=== PATIENT | female | born 1990 | race American Indian/Alaskan Native ===

== ENCOUNTER 2021-06-18 15:34 | Observation (INO) | payer MEDICARE ==
[2021-06-18] MEDS ORDERED: METOCLOPRAMIDE 10 MG/2 ML INJ IV ONE ×2 (16:54→19:29)
[2021-06-18] MEDS ORDERED: SODIUM CHLORIDE 0.9% 1000 ML 1,000 ML IV ONE (16:54)
--- NOTE | 2021-06-18 17:01 | Event Note ---
ED Screening Note ED Screening Note: Patient is a 30-year-old female presents emergency room complaints of nausea and vomiting for 2 days She is not able to keep anything down She states her sugar has been running 499 She states that she is unable to keep her blood pressure medication down States that she was also having some diarrhea Has a history of gastroparesis States that she was last in DKA 1 year ago Patient is tachycardic and diaphoretic on exam This initial assessment/diagnostic orders/clinical plan/treatment(s) is/are subject to change based on patients health status, clinical progression and re- assessment by fellow clinical providers in the ED. Further treatment and workup at subsequent clinical providers discretion. Patient/guardian urged not to elope from the ED as their condition may be serious if not clinically assessed and managed. Initial orders include: Labs MAIN ED MD evaluation
[2021-06-18] MEDS ORDERED: diphenhydrAMINE 50 MG/ML VIAL IV ONE (17:10)
[2021-06-18 17:19] LABS: Basophils # (Auto) 0.1 K/mm3 (0.0-0.1); Basophils % (Auto) 0.8 % (0.0-1.8); Eosinophils % (Auto) 0.1 % (0.0-4.3); Hematocrit 43.6 % (30.3-42.9); Lymphocytes % (Auto) 9.8 % (13.4-35.0); Mean Corpuscular HGB Conc 34 % (30-34); Mean Corpuscular Volume 89 fl (79-97); Monocytes # (Auto) 0.3 K/mm3 (0.0-0.8); Monocytes % (Auto) 3.4 % (0.0-7.3); Red Blood Count 4.93 M/mm3 (3.65-5.03); Red Cell Distribution Width 13.9 % (13.2-15.2)
[2021-06-18 17:42] LABS: Albumin 4.4 g/dL (3.9-5); Calcium 9.6 mg/dL (8.4-10.2)
[2021-06-18] MEDS ORDERED: HALOPERIDOL LACTATE 5 MG/1 ML INJ IM ONE (17:53)
[2021-06-18] MEDS ORDERED: LACTATED RINGERS 1,000 ML IV ONE ×2 (17:53→17:54)
[2021-06-18] MEDS ORDERED: INSULIN REGULAR, HUMAN 100 UNITS/1 ML IV ONE (17:54)
--- NOTE | 2021-06-18 17:55 | Emergency Department Report ---
ED General Adult HPI - General Chief complaint: Nausea/Vomiting/Diarrhea Stated complaint: Abdominal pain, nausea, vomiting and chest PUI?: No Time Seen by Provider: 06/18/21 16:47 Source: patient, EMS ( EMS documentation not available at time of chart dictation ), RN notes reviewed Mode of arrival: Stretcher Limitations: Physical Limitation - History of Present Illness Initial comments: The patient was evaluated in the emergency department for symptoms described in the history of present illness. He/she was evaluated in the context of the global COVID-19 pandemic, which necessitated consideration that the patient might be at risk for infection with the virus that causes COVID-19. Institutional protocols and algorithms that pertain to the evaluation of patients at risk for COVID-19 are in a state of rapid change based on information released by regulatory bodies including the CDC and federal and state organizations. These policies and algorithms were followed during the patient's care in the emergency department. Please note that these policies, procedures and recommendations changed on a rapid basis. During the history and physical examination, I am chaperoned by nurse Shelly Harvey Patient is a 30-year-old female. She has a history of type 1 diabetes that is poorly controlled. She describes a possible history of gastroparesis. She recently ran out of her insulin. She presents to the ER today with abdominal cramping, nausea, vomiting and chest pressure. The patient denies headache and neck pain. Abdominal cramping diffuse, present for a few days. Emesis clear, yellow and green. It is not bloody. She is defecating normally. She denies urinary symptoms. She is having central chest pressure with vomiting. Denies travel, surgery, immobilization, leg pain, leg swelling, DVT and pulmonary embo lism risk factors. No improvement with taking a hot bath or hot shower. Has not been to this hospital before. She has been hospitalized at [facility] in the past for similar symptoms. -: Gradual Location: chest, abdomen Severity scale (0 -10): 0 Quality: aching Consistency: constant Improves with: none Worsens with: eating, movement - Related Data Allergies Allergy/AdvReac Type Severity Reaction Status Date / Time latex Allergy Swelling Verified 06/18/21 16:28 ED Review of Systems ROS: Stated complaint: HYPERTENSION Other details as noted in HPI Constitutional: malaise, weakness. denies: fever Eyes: denies: eye discharge ENT: denies: epistaxis Respiratory: denies: cough Cardiovascular: chest pain Gastrointestinal: abdominal pain, nausea, vomiting. denies: hematemesis, melena, hematochezia Genitourinary: denies: dysuria Musculoskeletal: myalgia Neurological: weakness Psychiatric: anxiety Hematological/Lymphatic: denies: easy bleeding ED Past Medical Hx - Past Medical History Hx Hypertension: Yes Hx Diabetes: Yes - Surgical History Additional Surgical History: right bka 2017 - Social History Smoking Status: Current Every Day Smoker ED Physical Exam - General Limitations: No Limitations, Physical Limitation General appearance: alert, anxious, in distress - Head Head exam: Present: atraumatic, normocephalic - Eye Eye exam: Present: normal appearance, EOMI. Absent: nystagmus - ENT ENT exam: Present: normal exam, normal orophraynx, mucous membranes moist, normal external ear exam - Neck Neck exam: Present: normal inspection, full ROM. Absent: tenderness, meningismus - Respiratory Respiratory exam: Present: normal lung sounds bilaterally. Absent: respiratory distress, wheezes, rales, rhonchi, stridor, decreased breath sounds - Cardiovascular Cardiovascular Exam: Present: normal rhythm, tachycardia, normal heart sounds. Absent: systolic murmur, diastolic murmur, rubs, gallop - GI/Abdominal GI/Abdominal exam: Present: soft, tenderness (Minimal tenderness with deep palpation). Absent: distended, rebound, rigid, pulsatile mass - Extremities Exam Extremities exam: Present: normal inspection, full ROM, other (2+ pulses noted in the bilateral upper extremities and left lower extremity. Right lower extremity status post below-knee amputation). Absent: pedal edema, calf tenderness - Back Exam Back exam: Present: normal inspection, full ROM. Absent: tenderness, CVA tenderness (R), CVA tenderness (L), muscle spasm, paraspinal tenderness, vertebral tenderness - Neurological Exam Neurological exam: Present: alert, other (No facial droop. Tongue midline. Extraocular movements intact bilaterally. Facial sensation intact to light touch in V1, V2, V3 distribution bilaterally. 5 and a 5 strength in 4 extremities. Sensation intact to light touch in 4 extremities.) - Psychiatric Psychiatric exam: Present: anxious - Skin Skin exam: Present: warm, dry, intact, normal color. Absent: rash ED Course Vital Signs 06/18/21 06/18/21 15:47 16:27 Temperature 98.6 F Pulse Rate 106 H Respiratory 16 Rate Blood Pressure 169/99 209/111 [Left] O2 Sat by Pulse 100 Oximetry - Reevaluation(s) Reevaluation #1: 06/18/21 19:28 Differential diagnosis, including but not limited to: GERD, gastritis, hiatal hernia, gastroparesis, cyclic vomiting syndrome, narcotic bowel syndrome, dehydration, metabolic acidosis Assessment and plan: 30-year-old female, who was afebrile, tachycardic and hypertensive, with active nausea and vomiting, likely cyclic vomiting syndrome versus gastroparesis. Laboratory studies demonstrate renal insufficiency, and metabolic acidosis. The patient denies DVT, PE risk factors. Patient meets criteria for admission hospitalization secondary to renal insufficiency, and metabolic acidosis. She was given haloperidol, for presumed gastroparesis, which so far has not really improved her symptoms. She will be medicated with Reglan, and hydromorphone for pain. EKG pending. Chest x-ray abdominal x-ray unremarkable. Hospital physician paged to arrange admission. Based off of the history and physical, do not suspect acute coronary syndrome at this time. 06/18/21 19:29 In terms of the patient's hypertension, administer intravenous hydralazine. Administer insulin for hyperglycemia. 06/18/21 19:50 Dr Gordon to admit to [facility] MDM: 30-year-old female, with intractable nausea vomiting, hypertensive urgency, metabolic acidosis, renal insufficiency, requires admission for IV fluids, antiemetics, blood pressure control, glycemic control, and supportive care ED Medical Decision Making - Lab Data Result diagrams: 06/18/21 17:00 06/18/21 17:00 Vital Signs 06/18/21 06/18/21 15:47 16:27 Temperature 98.6 F Pulse Rate 106 H Respiratory 16 Rate Blood Pressure 169/99 209/111 [Left] O2 Sat by Pulse 100 Oximetry Lab Results 06/18/21 06/18/21 06/18/21 Range/Units 17:00 17:00 17:00 WBC 10.2 (4.5-11.0) K/mm3 RBC 4.93 (3.65-5.03) M/mm3 Hgb 15.0 H (10.1-14.3) gm/dl Hct 43.6 H (30.3-42.9) % MCV 89 (79-97) fl MCH 31 (28-32) pg MCHC 34 (30-34) % RDW 13.9 (13.2-15.2) % Plt Count 240 (140-440) K/mm3 Lymph % (Auto) 9.8 L (13.4-35.0) % Sunflower % (Auto) 3.4 (0.0-7.3) % Eos % (Auto) 0.1 (0.0-4.3) % Baso % (Auto) 0.8 (0.0-1.8) % Lymph # (Auto) 1.0 L (1.2-5.4) K/mm3 Sunflower # (Auto) 0.3 (0.0-0.8) K/mm3 Eos # (Auto) 0.0 (0.0-0.4) K/mm3 Baso # (Auto) 0.1 (0.0-0.1) K/mm3 Seg Neutrophils % 85.9 H (40.0-70.0) % Seg Neutrophils # 8.8 H (1.8-7.7) K/mm3 VBG pH (7.320-7.420) Sodium 135 L (137-145) mmol/L Potassium 4.1 (3.6-5.0) mmol/L Chloride 91.4 L (98-107) mmol/L Carbon Dioxide 21 L (22-30) mmol/L Anion Gap 27 mmol/L BUN 22 H (7-17) mg/dL Creatinine 1.6 H (0.6-1.2) mg/dL Estimated GFR 38 ml/min BUN/Creatinine Ratio 14 % Glucose 328 H (65-100) mg/dL POC Glucose (70-105) mg/dL Calcium 9.6 (8.4-10.2) mg/dL Magnesium (1.7-2.3) mg/dL Total Bilirubin 0.50 (0.1-1.2) mg/dL AST 25 (5-40) units/L ALT 12 (7-56) units/L Alkaline Phosphatase 153 H (35-129) units/L Total Creatine Kinase (30-135) units/L Troponin T (0.00-0.029) ng/mL Total Protein 7.5 (6.3-8.2) g/dL Albumin 4.4 (3.9-5) g/dL Albumin/Globulin Ratio 1.4 % Lipase 26 (13-60) units/L HCG, Qual Negative (Negative) 06/18/21 06/18/21 06/18/21 Range/Units 17:00 17:08 Unknown WBC (4.5-11.0) K/mm3 RBC (3.65-5.03) M/mm3 Hgb (10.1-14.3) gm/dl Hct (30.3-42.9) % MCV (79-97) fl MCH (28-32) pg MCHC (30-34) % RDW (13.2-15.2) % Plt Count (140-440) K/mm3 Lymph % (Auto) (13.4-35.0) % Sunflower % (Auto) (0.0-7.3) % Eos % (Auto) (0.0-4.3) % Baso % (Auto) (0.0-1.8) % Lymph # (Auto) (1.2-5.4) K/mm3 Sunflower # (Auto) (0.0-0.8) K/mm3 Eos # (Auto) (0.0-0.4) K/mm3 Baso # (Auto) (0.0-0.1) K/mm3 Seg Neutrophils % (40.0-70.0) % Seg Neutrophils # (1.8-7.7) K/mm3 VBG pH 7.428 H (7.320-7.420) Sodium (137-145) mmol/L Potassium (3.6-5.0) mmol/L Chloride (98-107) mmol/L Carbon Dioxide (22-30) mmol/L Anion Gap mmol/L BUN (7-17) mg/dL Creatinine (0.6-1.2) mg/dL Estimated GFR ml/min BUN/Creatinine Ratio % Glucose (65-100) mg/dL POC Glucose 293 H (70-105) mg/dL Calcium (8.4-10.2) mg/dL Magnesium 1.80 (1.7-2.3) mg/dL Total Bilirubin (0.1-1.2) mg/dL AST (5-40) units/L ALT (7-56) units/L Alkaline Phosphatase (35-129) units/L Total Creatine Kinase 111 (30-135) units/L Troponin T < 0.010 (0.00-0.029) ng/mL Total Protein (6.3-8.2) g/dL Albumin (3.9-5) g/dL Albumin/Globulin Ratio % Lipase (13-60) units/L HCG, Qual (Negative) - EKG Data -: EKG Interpreted by Md EKG shows normal: sinus rhythm Rate: tachycardia - EKG Data When compared to previous EKG there are: previous EKG unavailable 06/18/21 19:31 EKG interpreted at 19: 26 Sinus rhythm, rate 122 bpm. Normal axis, normal P wave axis, QTC 488 ms. Poor R wave progression. Abnormal EKG. Not a STEMI. - Radiology Data Radiology results: pending, report reviewed, image reviewed ABDOMEN 3 VIEW(S) INDICATION / CLINICAL INFORMATION: Chest and abdominal pain. Nausea, vomiting and diarrhea. COMPARISON: None available. FINDINGS: TUBES / LINES: None. BOWEL GAS PATTERN: There is no evidence of bowel obstruction or mass effect. FREE AIR / EXTRALUMINAL GAS: None seen. ADDITIONAL FINDINGS: No significant additional findings. CHEST: The heart size and pulmonary vasculature are normal. The lungs are clear. IMPRESSION: No acute abnormality. Signer Name: Darren Cuadra MD Signed: 06/18/2021 5:22 PM Workstation Name: [id number] Critical care attestation.: If time is entered above; I have spent that time in minutes in the direct care of this critically ill patient, excluding procedure time. ED Disposition Clinical Impression: Metabolic acidosis, Renal insufficiency, Hyperglycemia, Hypertensive urgency, Nausea and vomiting Disposition: 09 ADMITTED INPATIENT Is pt being admited?: Yes Does the pt Need Aspirin: No Condition: Good
[2021-06-18 18:24] LABS: Platelet Count 240 K/mm3 (140-440)
--- NOTE | 2021-06-18 18:26 | XRay Report ---
ABDOMEN 3 VIEW(S) INDICATION / CLINICAL INFORMATION: Chest and abdominal pain. Nausea, vomiting and diarrhea. COMPARISON: None available. FINDINGS: TUBES / LINES: None. BOWEL GAS PATTERN: There is no evidence of bowel obstruction or mass effect. FREE AIR / EXTRALUMINAL GAS: None seen. ADDITIONAL FINDINGS: No significant additional findings. CHEST: The heart size and pulmonary vasculature are normal. The lungs are clear. IMPRESSION: No acute abnormality. Signer Name: Darren Cuadra MD Signed: 06/18/2021 6:22 PM Workstation Name: [id number]
[2021-06-18] MEDS ORDERED: HYDROmorphone 1 MG/1 ML INJ IV ONE (19:19)
[2021-06-18] MEDS ORDERED: hydrALAZINE 20 MG/1 ML INJ IV ONE (19:23)
[2021-06-18] MEDS ORDERED: PANTOPRAZOLE 40 MG INJ IV ONE (19:24)
[2021-06-18] MEDS: HYDROmorphone 1 MG/1 ML INJ IV PRN (20:20)
--- NOTE | 2021-06-18 21:43 | History and Physical Report ---
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 Patient states that she is compliant with her insulin. But patient may be taking double dose of insulin she is on 8 units of Lantus at nighttime and sliding scale coverage. Also high blood glucose levels on a consistent basis. Patient has a history of of gastroparesis and multiple episodes of vomiting in the past and admissions in the past. Patient has been vomiting for the last for 48 hours. About 7-8 times a day during the day. Vomiting subsided in the emergency room after she was given IV Zofran. No fever or chills. No shortness of breath. No altered sensorium. Patient is vaccinated. - Past Medical History --Hypertension: Yes --Diabetes: Yes - Surgical History --Additional Surgical History: right bka 2017 - Social History r --Smoking Status: Current Every day smoker -- family history Htn Review of Systems ROS: Stated complaint: HYPERTENSION Other details as noted in HPI Constitutional: malaise, weakness. denies: fever Eyes: denies: eye discharge ENT: denies: epistaxis Respiratory: denies: cough Cardiovascular: chest pain Gastrointestinal: abdominal pain, nausea, vomiting. denies: hematemesis, melena, hematochezia Genitourinary: denies: dysuria Musculoskeletal: myalgia Neurological: weakness Psychiatric: anxiety Hematological/Lymphatic: denies: easy bleeding Medications and Allergies Allergies Allergy/AdvReac Type Severity Reaction Status Date / Time latex Allergy Swelling Verified 06/18/21 21:51 Exam - Constitutional Vitals: Temp Pulse Resp BP Pulse Ox 98.6 F 120 H 20 163/103 100 06/18/21 15:47 06/18/21 20:10 06/18/21 20:10 06/18/21 20:10 06/18/21 15:47 General appearance: Present: mild distress, well-nourished - EENT Eyes: Present: PERRL ENT: hearing intact, clear oral mucosa - Neck Neck: Present: supple, normal ROM - Respiratory Respiratory effort: normal Respiratory: bilateral: CTA - Cardiovascular Heart rate: 78 Rhythm: regular Heart Sounds: Present: S1 & S2. Absent: rub, click - Extremities Extremities: no ischemia, pulses intact, pulses symmetrical, No edema Peripheral Pulses: within normal limits - Abdominal General gastrointestinal: Present: soft, non-tender, non-distended, normal bowel sounds Female genitourinary: Present: normal - Integumentary Integumentary: Present: clear, warm, dry - Musculoskeletal Musculoskeletal: gait normal, strength equal bilaterally - Psychiatric Psychiatric: appropriate mood/affect, intact judgment & insight - Neurologic Neurologic: CNII-XII intact, moves all extremities HEART Score - HEART Score Troponin: Troponin T < 0.010 ng/mL (0.00-0.029) 06/18/21 Unknown Results - Labs CBC & Chem 7: 06/19/21 04:30 06/19/21 04:30 Labs: Laboratory Last Values WBC 10.2 K/mm3 (4.5-11.0) 06/18/21 17:00 RBC 4.93 M/mm3 (3.65-5.03) 06/18/21 17:00 Hgb 15.0 gm/dl (10.1-14.3) H 06/18/21 17:00 Hct 43.6 % (30.3-42.9) H 06/18/21 17:00 MCV 89 fl (79-97) 06/18/21 17:00 MCH 31 pg (28-32) 06/18/21 17:00 MCHC 34 % (30-34) 06/18/21 17:00 RDW 13.9 % (13.2-15.2) 06/18/21 17:00 Plt Count 240 K/mm3 (140-440) 06/18/21 17:00 Lymph % (Auto) 9.8 % (13.4-35.0) L 06/18/21 17:00 [place] % (Auto) 3.4 % (0.0-7.3) 06/18/21 17:00 Eos % (Auto) 0.1 % (0.0-4.3) 06/18/21 17:00 Baso % (Auto) 0.8 % (0.0-1.8) 06/18/21 17:00 Lymph # (Auto) 1.0 K/mm3 (1.2-5.4) L 06/18/21 17:00 [place] # (Auto) 0.3 K/mm3 (0.0-0.8) 06/18/21 17:00 Eos # (Auto) 0.0 K/mm3 (0.0-0.4) 06/18/21 17:00 Baso # (Auto) 0.1 K/mm3 (0.0-0.1) 06/18/21 17:00 Seg Neutrophils % 85.9 % (40.0-70.0) H 06/18/21 17:00 Seg Neutrophils # 8.8 K/mm3 (1.8-7.7) H 06/18/21 17:00 VBG pH 7.428 (7.320-7.420) H 06/18/21 17:00 Sodium 135 mmol/L (137-145) L 06/18/21 17:00 Potassium 4.1 mmol/L (3.6-5.0) 06/18/21 17:00 Chloride 91.4 mmol/L (98-107) L 06/18/21 17:00 Carbon Dioxide 21 mmol/L (22-30) L 06/18/21 17:00 Anion Gap 27 mmol/L 06/18/21 17:00 BUN 22 mg/dL (7-17) H 06/18/21 17:00 Creatinine 1.6 mg/dL (0.6-1.2) H 06/18/21 17:00 Estimated GFR 38 ml/min 06/18/21 17:00 BUN/Creatinine Ratio 14 % 06/18/21 17:00 Glucose 328 mg/dL (65-100) H 06/18/21 17:00 POC Glucose 293 mg/dL (70-105) H 06/18/21 17:08 Calcium 9.6 mg/dL (8.4-10.2) 06/18/21 17:00 Magnesium 1.80 mg/dL (1.7-2.3) 06/18/21 Unknown Total Bilirubin 0.50 mg/dL (0.1-1.2) 06/18/21 17:00 AST 25 units/L (5-40) 06/18/21 17:00 ALT 12 units/L (7-56) 06/18/21 17:00 Alkaline Phosphatase 153 units/L (35-129) H 06/18/21 17:00 Total Creatine Kinase 111 units/L (30-135) 06/18/21 Unknown Troponin T < 0.010 ng/mL (0.00-0.029) 06/18/21 Unknown Total Protein 7.5 g/dL (6.3-8.2) 06/18/21 17:00 Albumin 4.4 g/dL (3.9-5) 06/18/21 17:00 Albumin/Globulin Ratio 1.4 % 06/18/21 17:00 Lipase 26 units/L (13-60) 06/18/21 17:00 HCG, Qual Negative (Negative) 06/18/21 17:00 Short CBC 06/18/21 06/19/21 Range/Units 17:00 04:30 WBC 10.2 12.3 H (4.5-11.0) K/mm3 Hgb 15.0 H 11.7 D (10.1-14.3) gm/dl Hct 43.6 H 34.9 D (30.3-42.9) % Plt Count 240 246 (140-440) K/mm3 BMP 06/18/21 06/19/21 17:00 04:30 Sodium 135 L 137 Potassium 4.1 2.9 L* D Chloride 91.4 L 95.5 L Carbon Dioxide 21 L 25 BUN 22 H 21 H Creatinine 1.6 H 1.5 H Glucose 328 H 87 Calcium 9.6 9.0 Cardiac Enzymes 06/18/21 Range/Units Unknown Total Creatine Kinase 111 (30-135) units/L Troponin T < 0.010 (0.00-0.029) ng/mL Liver Function 06/18/21 06/19/21 Range/Units 17:00 04:30 Total Bilirubin 0.50 0.40 (0.1-1.2) mg/dL AST 25 11 (5-40) units/L ALT 12 9 (7-56) units/L Alkaline Phosphatase 153 H 132 H (35-129) units/L Albumin 4.4 3.6 L (3.9-5) g/dL Assessment and Plan Advance Directives: Yes (Full code) VTE prophylaxis?: Chemical Plan of care discussed with patient/family: Yes - Patient Problems (1) Gastroparesis Current Visit: Yes Status: Acute Plan to address problem: Patient is put on clear liquid diet IV Zofran IV Reglan on regular intervals. Gastric emptying scan was not ordered. IV fluids. (2) BREANNE (acute kidney injury) Current Visit: Yes Status: Acute Plan to address problem: Creatinine of 1.6 Vasomotor nephropathy IV fluids for now (3) IDDM (insulin dependent diabetes mellitus) Current Visit: Yes Status: Chronic Plan to address problem: Lantus insulin increased to 15 units. I will also 5 units of Humalog AC before each meal. Insulin coverage with high-dose sliding scale. Accu-Cheks every 4 hours. Check hemoglobin A1c. (4) Hypertension Current Visit: Yes Status: Chronic Qualifiers: Hypertension type: primary hypertension Qualified Code(s): I10 - Essential (primary) hypertension Plan to address problem: Continue antihypertensives. Adjust medications as necessary. (5) Hx of right BKA Current Visit: Yes Status: Chronic Plan to address problem: Supportive care (6) DVT prophylaxis Current Visit: Yes Status: Acute Plan to address problem: On anticoagulation GI prophylaxis
[2021-06-18] MEDS ORDERED: MORPHINE 2 MG/1 ML INJ IV PRN (21:44)
[2021-06-18] MEDS ORDERED: ONDANSETRON 4 MG/2 ML INJ IV PRN (21:44)
[2021-06-18] MEDS ORDERED: ACETAMINOPHEN 325 MG TAB PO PRN (21:44)
[2021-06-18] MEDS ORDERED: SODIUM CHLORIDE 0.9% 1000 ML 1,000 ML IV SCH (21:45)
[2021-06-18] MEDS: FAMOTIDINE 20 MG/2 ML INJ IV SCH (23:04)
[2021-06-18] MEDS: INSULIN LISPRO 100 UNIT/ML SUB-Q SCH (23:05)
[2021-06-18] MEDS: HEPARIN 5,000 UNIT/1 ML VIAL SUB-Q SCH (23:06)
[2021-06-19] MEDS: INSULIN LISPRO 100 UNIT/ML SUB-Q SCH ×4 (02:21→13:05)
[2021-06-19 06:38] LABS: Basophils # (Auto) 0.1 K/mm3 (0.0-0.1); Basophils % (Auto) 0.9 % (0.0-1.8); Eosinophils % (Auto) 0.3 % (0.0-4.3); Hematocrit 34.9 % (30.3-42.9); Hemoglobin 11.7 gm/dl (10.1-14.3); Lymphocytes # (Auto) 2.9 K/mm3 (1.2-5.4); Mean Corpuscular HGB Conc 34 % (30-34); Mean Corpuscular Volume 91 fl (79-97); Monocytes % (Auto) 7.8 % (0.0-7.3); Platelet Count 246 K/mm3 (140-440); Red Blood Count 3.84 M/mm3 (3.65-5.03); Red Cell Distribution Width 13.7 % (13.2-15.2)
[2021-06-19 07:02] LABS: Albumin 3.6 g/dL (3.9-5)
[2021-06-19] MEDS: POTASSIUM CHLORIDE ER 20 MEQ TAB PO SCH ×2 (09:38→13:15)
[2021-06-19] MEDS: HEPARIN 5,000 UNIT/1 ML VIAL SUB-Q SCH (09:38)
[2021-06-19] MEDS: FAMOTIDINE 20 MG/2 ML INJ IV SCH (09:38)
[2021-06-19] MEDS: HYDROmorphone 1 MG/1 ML INJ IV PRN (10:08)
--- NOTE | 2021-06-19 13:04 | Discharge Summary ---
Providers - Providers Date of Admission: 06/18/21 19:51 Date of discharge: 06/19/21 Attending physician: ISABELLA LINDQUIST MD Primary care physician: DERICK ORLANDO MD Hospitalization Reason for admission: vomiting Condition: Good Hospital course: 30-year-old female with history of hypertension, diabetes and right below the knee amputation who presented on 06/18 with persistent vomiting x48 hours. She was admitted for further care. Was started on IV Zofran and Reglan and IV fluids. Patient was able to tolerate clear liquid diet. Glucose improved. Found to have potassium of 2.9. Potassium repleted and improved to 4. Patient no longer had nausea and vomiting and was discharged home with insulin refills. Disposition: 01 HOME / SELF CARE / HOMELESS Final Discharge Diagnosis (Prints w/discharge instructions): Gastroparesis. Acute kidney injury. Insulin-dependent diabetes mellitus, uncontrolled Time spent for discharge: 10 minutes Core Measure Documentation - Palliative Care Palliative Care/ Comfort Measures: Not Applicable - Core Measures Any of the following diagnoses?: none Exam - Physical Exam Narrative exam: GENERAL: Well-developed well-nourished. Sitting on the side of the bed in no acute distress. CHEST/LUNGS: CTAB on room air HEART/CARDIOVASCULAR: RRR. No murmur, rubs or gallops appreciated. ABDOMEN: +BS. NT/ND. NEURO: No focal motor deficit. Follows all commands. EXTREMITIES: R. BKA stump PSYCH: Cooperative. - Constitutional Vitals: Temp Pulse Resp BP Pulse Ox 98.1 F 123 H 20 134/71 97 06/19/21 07:34 06/19/21 07:34 06/19/21 10:08 06/19/21 07:34 06/19/21 09:18 Plan Care Plan Goals: Please start taking insulin as prescribed. Make sure to follow-up with primary care so that you will have constant supply refills. Assessment: Patient admitted with persistent nausea and vomiting. Received IV fluids and Zofran. Vomiting resolved. Found to have hypokalemia to 2.9. Patient received potassium supplementation. Repeat potassium ordered prior to discharge. Patient discharged with medication refills for 1 month. Follow up with: PRIMARY CARE, [Primary Care Provider] - 3-5 Days Prescriptions: Insulin Glargine [Lantus VIAL] 8 units SUB-Q QHS 30 Days #3 ml carvediloL [Coreg] 12.5 mg PO BID 30 Days #60 tablet
[2021-06-19 17:27] VITALS: BP 121/80
[2021-06-19] MEDS ORDERED: INSULIN GLARGINE 100 UNITS/ML SUB-Q SCH (22:00)
--- NOTE | 2021-06-22 18:40 | Electrocardiograph Report ---
[facility] Test Date: 2021-06-18 Test Time: 19:26:36 Pat Name: JUDY SMITH Department: Room: A475 1 Gender: F Community [employer] Officer: MARITZA : 1990 Requested By: GUANACO NOLEN Order Number: [id number] Reading MD: Fredrick Llanos Measurements Intervals [place] Rate: 122 P: 62 [place]: 144 QRS: 75 QRSD: 85 T: 47 QT: 342 QTc: 488 Interpretive Statements Sinus tachycardia Probable left atrial enlargement No previous ECG available for comparison Electronically Signed On 06-22-2021 18:40:11 EDT by Fredrick Llanos
== END 2021-06-19 17:00 | disposition home or self-care (01) ==
LOC: ED 15:34 → 4A 19:51
PROVIDERS: ADMIT Internal Medicine; ATTEND Student in an Organized Health Care Education/Training Program
DX: K31.84 Gastroparesis (principal); I16.0 Hypertensive urgency; N17.9 Acute kidney failure, unspecified; I10 Essential (primary) hypertension; E11.65 Type 2 diabetes mellitus with hyperglycemia; N28.9 Disorder of kidney and ureter, unspecified; R11.2 Nausea with vomiting, unspecified; F17.210 Nicotine dependence, cigarettes, uncomplicated; Z89.511 Acquired absence of right leg below knee; Z79.4 Long term (current) use of insulin
CPT/HCPCS: 36415; 74022; 80053; 82550; 82805; 82962; 83036; 83690; 83735; 84132; 84484; 84703; 85025; 93005; 96372; 96374; 96375; 96376; 99285; C9113; G0378; J0360; J1170; J1200; J1630; J1644; J2765; J7030; J7120; J1815

== ENCOUNTER 2021-07-09 12:27 | Emergency (ER) | payer MEDICARE ==
[2021-07-09] MEDS ORDERED: SODIUM CHLORIDE 0.9% 1000 ML 1,000 ML IV ONE ×2 (12:47→15:30)
[2021-07-09] MEDS ORDERED: METOCLOPRAMIDE 10 MG/2 ML INJ IV ONE (12:50)
[2021-07-09] MEDS ORDERED: HYDROmorphone 1 MG/1 ML INJ IV ONE ×2 (12:50→16:11)
--- NOTE | 2021-07-09 12:50 | Emergency Department Report ---
HPI - General Chief Complaint: Hyperglycemia Time Seen by Provider: 07/09/21 12:39 - HPI HPI: 30-year-old -Japanese female presents to the emergency department with complaint of a 2-day history of nausea with vomiting, mild abdominal pain and back pain. The patient also presents with hyperglycemia, uncontrolled diabetes, with a blood sugar of about 560 on Accu-Chek in triage. The patient is a known insulin-dependent diabetic and says that she is on NovoLog with meals on a sliding scale but has not taken her insulin over the past 24 hours because "I was too sick." She also has a history of hypertension for which he is on carvedilol but also has had noncompliance with his medication over the past 1 to 2 days. She does not have a primary care physician. No recent travel or sick contacts at home. She denies any fever, chest pain, shortness of breath, diarrhea, dysuria. ED Past Medical Hx - Past Medical History Hx Hypertension: Yes Hx Congestive Heart Failure: No Hx Diabetes: Yes Hx Arthritis: Yes (knees) Hx Asthma: Yes Hx COPD: No Hx HIV: No - Surgical History Additional Surgical History: right bka 2017 - Social History Smoking Status: Never Smoker - Medications Home Medications: Home Medications Medication Instructions Recorded Confirmed Last Taken Type Insulin Glargine [Lantus VIAL] 8 units SUB-Q QHS 30 Days #3 ml 06/19/21 Unknown Rx carvediloL [Coreg] 12.5 mg PO BID 30 Days #60 tablet 06/19/21 Unknown Rx Metoclopramide [Reglan] 10 mg PO TID PRN #15 tab 07/09/21 Unknown Rx Nitrofurantoin [place]/M-Cryst 100 mg PO Q12HR #14 capsule 07/09/21 Unknown Rx [Macrobid CAP] ED Review of Systems ROS: Stated complaint: HIGH BLOOD SUGAR Other details as noted in HPI Comment: All other systems reviewed and negative Constitutional: denies: chills, fever Eyes: denies: eye pain, vision change ENT: denies: ear pain, throat pain Respiratory: denies: cough, shortness of breath Cardiovascular: denies: chest pain, palpitations Gastrointestinal: abdominal pain, nausea, vomiting. denies: diarrhea Genitourinary: denies: dysuria, discharge Musculoskeletal: denies: back pain, arthralgia Skin: denies: rash, lesions Neurological: denies: headache, weakness Physical Exam - Physical Exam Physical Exam: GENERAL: The patient is well-developed well-nourished. HENT: Normocephalic. Atraumatic. Patient has moist mucous membranes. EYES: Extraocular motions are intact. NECK: Supple. Trachea is midline. CHEST/LUNGS: Clear to auscultation. There is no respiratory distress noted. HEART/CARDIOVASCULAR: Regular. There is moderate tachycardia. There is no murmur. ABDOMEN: Abdomen is soft. Mild generalized abdominal tenderness to palpation. No guarding. Patient has normal bowel sounds. There is no abdominal distention. SKIN: Skin is warm and dry. NEURO: The patient is awake, alert, and oriented. The patient is cooperative. The patient has no focal neurologic deficits. Normal speech. MUSCULOSKELETAL: There is no tenderness. Right BKA. There is no limitation range of motion. ED Medical Decision Making - Lab Data Result diagrams: 07/09/21 12:56 07/09/21 12:56 Lab Results 07/09/21 07/09/21 07/09/21 Range/Units 12:56 12:56 12:56 WBC 13.5 H (4.5-11.0) K/mm3 RBC 4.50 (3.65-5.03) M/mm3 Hgb 13.1 (10.1-14.3) gm/dl Hct 40.4 (30.3-42.9) % MCV 90 (79-97) fl MCH 29 (28-32) pg MCHC 33 (30-34) % RDW 13.7 (13.2-15.2) % Plt Count 439 (140-440) K/mm3 Lymph % (Auto) 6.9 L (13.4-35.0) % [place] % (Auto) 3.2 (0.0-7.3) % Eos % (Auto) 0.1 (0.0-4.3) % Baso % (Auto) 0.7 (0.0-1.8) % Lymph # (Auto) 0.9 L (1.2-5.4) K/mm3 [place] # (Auto) 0.4 (0.0-0.8) K/mm3 Eos # (Auto) 0.0 (0.0-0.4) K/mm3 Baso # (Auto) 0.1 (0.0-0.1) K/mm3 Seg Neutrophils % 89.1 H (40.0-70.0) % Seg Neutrophils # 12.1 H (1.8-7.7) K/mm3 VBG pH (7.320-7.420) Sodium 128 L (137-145) mmol/L Potassium 3.5 L (3.6-5.0) mmol/L Chloride 80.3 L (98-107) mmol/L Carbon Dioxide 27 (22-30) mmol/L Anion Gap 24 mmol/L BUN 20 H (7-17) mg/dL Creatinine 1.6 H (0.6-1.2) mg/dL Estimated GFR 46 ml/min BUN/Creatinine Ratio 13 % Glucose 580 H* (65-100) mg/dL POC Glucose (70-105) mg/dL Ketones Quantitative (Negative) Calcium 9.4 (8.4-10.2) mg/dL Total Bilirubin 0.40 (0.1-1.2) mg/dL AST 12 (5-40) units/L ALT 9 (7-56) units/L Alkaline Phosphatase 164 H (35-129) units/L Total Protein 8.0 (6.3-8.2) g/dL Albumin 4.1 (3.9-5) g/dL Albumin/Globulin Ratio 1.1 % Lipase 60 (13-60) units/L HCG, Qual Negative (Negative) Urine Color (Yellow) Urine Turbidity (Clear) Urine pH (5.0-7.0) Ur Specific [place] (1.003-1.030) Urine Protein (Negative) mg/dL Urine Glucose (UA) (Negative) mg/dL Urine Ketones (Negative) mg/dL Urine Blood (Negative) Urine Nitrite (Negative) Urine Bilirubin (Negative) Urine Urobilinogen (<2.0) mg/dL Ur Leukocyte Esterase (Negative) Urine WBC (Auto) (0.0-6.0) /HPF Urine RBC (Auto) (0.0-6.0) /HPF U Epithel Cells (Auto) (0-13.0) /HPF Urine Bacteria (Auto) (Negative) /HPF 07/09/21 07/09/21 07/09/21 Range/Units 12:56 13:03 15:22 WBC (4.5-11.0) K/mm3 RBC (3.65-5.03) M/mm3 Hgb (10.1-14.3) gm/dl Hct (30.3-42.9) % MCV (79-97) fl MCH (28-32) pg MCHC (30-34) % RDW (13.2-15.2) % Plt Count (140-440) K/mm3 Lymph % (Auto) (13.4-35.0) % [place] % (Auto) (0.0-7.3) % Eos % (Auto) (0.0-4.3) % Baso % (Auto) (0.0-1.8) % Lymph # (Auto) (1.2-5.4) K/mm3 [place] # (Auto) (0.0-0.8) K/mm3 Eos # (Auto) (0.0-0.4) K/mm3 Baso # (Auto) (0.0-0.1) K/mm3 Seg Neutrophils % (40.0-70.0) % Seg Neutrophils # (1.8-7.7) K/mm3 VBG pH 7.369 (7.320-7.420) Sodium (137-145) mmol/L Potassium (3.6-5.0) mmol/L Chloride (98-107) mmol/L Carbon Dioxide (22-30) mmol/L Anion Gap mmol/L BUN (7-17) mg/dL Creatinine (0.6-1.2) mg/dL Estimated GFR ml/min BUN/Creatinine Ratio % Glucose (65-100) mg/dL POC Glucose 399 H (70-105) mg/dL Ketones Quantitative Negative (Negative) Calcium (8.4-10.2) mg/dL Total Bilirubin (0.1-1.2) mg/dL AST (5-40) units/L ALT (7-56) units/L Alkaline Phosphatase (35-129) units/L Total Protein (6.3-8.2) g/dL Albumin (3.9-5) g/dL Albumin/Globulin Ratio % Lipase (13-60) units/L HCG, Qual (Negative) Urine Color (Yellow) Urine Turbidity (Clear) Urine pH (5.0-7.0) Ur Specific [place] (1.003-1.030) Urine Protein (Negative) mg/dL Urine Glucose (UA) (Negative) mg/dL Urine Ketones (Negative) mg/dL Urine Blood (Negative) Urine Nitrite (Negative) Urine Bilirubin (Negative) Urine Urobilinogen (<2.0) mg/dL Ur Leukocyte Esterase (Negative) Urine WBC (Auto) (0.0-6.0) /HPF Urine RBC (Auto) (0.0-6.0) /HPF U Epithel Cells (Auto) (0-13.0) /HPF Urine Bacteria (Auto) (Negative) /HPF 07/09/21 07/09/21 Range/Units 16:25 17:43 WBC (4.5-11.0) K/mm3 RBC (3.65-5.03) M/mm3 Hgb (10.1-14.3) gm/dl Hct (30.3-42.9) % MCV (79-97) fl MCH (28-32) pg MCHC (30-34) % RDW (13.2-15.2) % Plt Count (140-440) K/mm3 Lymph % (Auto) (13.4-35.0) % [place] % (Auto) (0.0-7.3) % Eos % (Auto) (0.0-4.3) % Baso % (Auto) (0.0-1.8) % Lymph # (Auto) (1.2-5.4) K/mm3 [place] # (Auto) (0.0-0.8) K/mm3 Eos # (Auto) (0.0-0.4) K/mm3 Baso # (Auto) (0.0-0.1) K/mm3 Seg Neutrophils % (40.0-70.0) % Seg Neutrophils # (1.8-7.7) K/mm3 VBG pH (7.320-7.420) Sodium (137-145) mmol/L Potassium (3.6-5.0) mmol/L Chloride (98-107) mmol/L Carbon Dioxide (22-30) mmol/L Anion Gap mmol/L BUN (7-17) mg/dL Creatinine (0.6-1.2) mg/dL Estimated GFR ml/min BUN/Creatinine Ratio % Glucose (65-100) mg/dL POC Glucose 166 H (70-105) mg/dL Ketones Quantitative (Negative) Calcium (8.4-10.2) mg/dL Total Bilirubin (0.1-1.2) mg/dL AST (5-40) units/L ALT (7-56) units/L Alkaline Phosphatase (35-129) units/L Total Protein (6.3-8.2) g/dL Albumin (3.9-5) g/dL Albumin/Globulin Ratio % Lipase (13-60) units/L HCG, Qual (Negative) Urine Color Yellow (Yellow) Urine Turbidity Slightly-cloudy (Clear) Urine pH 5.0 (5.0-7.0) Ur Specific [place] 1.018 (1.003-1.030) Urine Protein >500 (Negative) mg/dL Urine Glucose (UA) >=500 (Negative) mg/dL Urine Ketones Tr (Negative) mg/dL Urine Blood Sm (Negative) Urine Nitrite Neg (Negative) Urine Bilirubin Neg (Negative) Urine Urobilinogen < 2.0 (<2.0) mg/dL Ur Leukocyte Esterase Sm (Negative) Urine WBC (Auto) 37.0 H (0.0-6.0) /HPF Urine RBC (Auto) 1.0 (0.0-6.0) /HPF U Epithel Cells (Auto) 1.0 (0-13.0) /HPF Urine Bacteria (Auto) 1+ (Negative) /HPF - Radiology Data Radiology results: report reviewed, image reviewed interpreted by me: Chest x-ray does not show any acute process. There are no pleural effusions, obvious pneumonia and there is no pneumothorax. No widened mediastinum. Abdominal x-ray shows nonspecific nonobstructive bowel gas. No free air. - Medical Decision Making This patient presents with the complaint of nausea, vomiting, abdominal pain, and back pain for the past 2 days. There is some mild reproducible abdominal tenderness to palpation, but the abdomen is soft, nondistended and nontoxic in appearance. Abdominal x-ray shows nonspecific nonobstructive bowel gas and no free air. Chest x-ray does not show any pneumonia, pleural effusions, pneum othorax, widened mediastinum, or any other acute process. Patient's labs shows pseudohyponatremia, hypochloremia, hyperglycemia with a blood sugar of 580, and a urinary tract infection. The patient does not appear in diabetic ketoacidosis as there is no venous acidosis and she is negative for serum ketones. Patient was given 2 L of IV fluid resuscitation, 2 different doses of IV insulin, and her blood sugar came down to about 166 on Accu-Chek. The patient was given a dose of IV analgesia and IV antiemetics. Upon reevaluation she is feeling greatly improved and able to pass an oral challenge. Patient initially had moderate tachycardia but this has also improved. The rest the vital signs are reassuring including being afebrile. Patient will be discharged home with antibiotics for the urinary tract infection, antiemetics, and outpatient referral for primary care. Critical Care Time: No Critical care attestation.: If time is entered above; I have spent that time in minutes in the direct care of this critically ill patient, excluding procedure time. ED Disposition Clinical Impression: Hyperglycemia, Renal insufficiency, Gastroparesis UTI (urinary tract infection) Qualifiers: Urinary tract infection type: acute cystitis Hematuria presence: without hematuria Qualified Code(s): N30.00 - Acute cystitis without hematuria Disposition: HOME / SELF CARE / HOMELESS Is pt being admited?: No Condition: Stable Instructions: Hyperglycemia, Urinary Tract Infection, Adult, Chronic Kidney Disease, Adult, Gastroparesis Additional Instructions: Please follow-up with a primary care physician in the next few days. I have given you a referral for a local primary care physician, Dr. Salmon, and a primary care clinic, [facility]. Increase your oral rehydration. Take your diabetes, and all medications, as prescribed. Try to stay away from foods that are high in sugar, carbohydrates and starches. Keep a blood sugar log. You had some slight decrease in your kidney function, but this appears consistent with previous visits. However, because of this, please avoid any NSAIDs such as Aleve, ibuprofen, naproxen, Advil, Midol. I am giving you a referral for a local dope sprayer, kidney doctor, Dr. Rivera. Return to the emergency department with any worsening of your symptoms, new or concerning symptoms not addressed during this current emergency department visit, or with any acute distress. Prescriptions: Nitrofurantoin [place]/M-Cryst [Macrobid CAP] 100 mg PO Q12HR #14 capsule Metoclopramide [Reglan] 10 mg PO TID PRN #15 tab PRN Reason: Nausea Referrals: PRIMARY CARE, [Primary Care Provider] - 3-5 Days RIKA RIVERA MD [Staff Physician] - 3-5 Days VELASQUEZ SALMON MD [Staff Physician] - 3-5 Days [facility] [Provider Group] - 3-5 Days Time of Disposition: 17:48
[2021-07-09 13:10] LABS: Basophils # (Auto) 0.1 K/mm3 (0.0-0.1); Basophils % (Auto) 0.7 % (0.0-1.8); Eosinophils % (Auto) 0.1 % (0.0-4.3); Hematocrit 40.4 % (30.3-42.9); Hemoglobin 13.1 gm/dl (10.1-14.3); Lymphocytes # (Auto) 0.9 K/mm3 (1.2-5.4); Lymphocytes % (Auto) 6.9 % (13.4-35.0); Mean Corpuscular HGB Conc 33 % (30-34); Mean Corpuscular Volume 90 fl (79-97); Monocytes # (Auto) 0.4 K/mm3 (0.0-0.8); Monocytes % (Auto) 3.2 % (0.0-7.3); Platelet Count 439 K/mm3 (140-440); Red Cell Distribution Width 13.7 % (13.2-15.2)
[2021-07-09 13:36] LABS: Albumin 4.1 g/dL (3.9-5); Calcium 9.4 mg/dL (8.4-10.2)
[2021-07-09] MEDS ORDERED: INSULIN REGULAR, HUMAN 100 UNITS/1 ML IV ONE ×2 (13:51→15:30)
--- NOTE | 2021-07-09 14:54 | XRay Report ---
ACUTE ABDOMEN SERIES 3 VIEWS PORTABLE 1348 INDICATION: Abd pain COMPARISON: 06/18/2021 FINDINGS: Lung [place] are clear. Bowel gas pattern is unremarkable. No pneumoperitoneum is seen. No o bvious urinary tract calculi are noted. Signer Name: Rock Parry MD Signed: 07/09/2021 2:50 PM Workstation Name: [id number]
[2021-07-09 17:08] LABS: Bacteria,Urine 1+ /HPF (Negative); Bilirubin,Urine NEG (Negative); Blood,Urine SM (Negative); Color,Urine Yellow (Yellow); Urobilinogen,Urine < 2.0 mg/dL (<2.0)
[2021-07-09 17:10] LABS: Protein,Urine >500 mg/dL (Negative)
[2021-07-09 17:51] VITALS: BP 118/52
== END 2021-07-09 18:10 | disposition home or self-care (01) ==
LOC: ED 12:27
DX: E11.65 Type 2 diabetes mellitus with hyperglycemia (principal); N28.9 Disorder of kidney and ureter, unspecified; K31.84 Gastroparesis; N30.00 Acute cystitis without hematuria; J45.909 Unspecified asthma, uncomplicated
CPT/HCPCS: 36415; 74022; 80053; 81001; 82010; 82805; 82962; 83690; 84703; 85025; 87076; 87086; 87186; 96361; 96374; 96375; 96376; 99284; J1170; J2765; J3490; J7030; Q0162; Q9967; J1815

== ENCOUNTER 2021-08-11 21:18 | Emergency (ER) | payer MEDICARE ==
[2021-08-11] MEDS ORDERED: SODIUM CHLORIDE 0.9% 1000 ML 1,000 ML IV ONE (22:48)
[2021-08-11] MEDS ORDERED: ONDANSETRON 4 MG/2 ML INJ IV ONE (22:48)
[2021-08-11] MEDS ORDERED: INSULIN REGULAR, HUMAN 100 UNITS/1 ML IV ONE (22:49)
--- NOTE | 2021-08-11 22:52 | Emergency Department Report ---
ED General Adult HPI - General Stated complaint: HYPERGLYCEMIA Time Seen by Provider: 08/11/21 22:44 Source: patient, EMS - History of Present Illness Initial comments: Patient is 31 years old female with history of type 1 diabetes, hypertension on right below-knee amputation. Patient with multiple admission for DKA. Patient is noncompliant with her insulin. Patient brought to the emergency room via EMS from home for evaluation of nausea and vomiting for the last 5 days. Patient denied any chest pain, shortness of breath, cough, fever or chills. Patient found to have blood glucose of 458. - Related Data Previous Rx's Medication Instructions Recorded Last Taken Type Insulin Glargine [Lantus VIAL] 8 units SUB-Q QHS 30 Days #3 ml 06/19/21 Unknown Rx carvediloL [Coreg] 12.5 mg PO BID 30 Days #60 tablet 06/19/21 Unknown Rx Metoclopramide [Reglan] 10 mg PO TID PRN #15 tab 07/09/21 Unknown Rx Nitrofurantoin [place]/M-Cryst 100 mg PO Q12HR #14 capsule 07/09/21 Unknown Rx [Macrobid CAP] Allergies Allergy/AdvReac Type Severity Reaction Status Date / Time latex Allergy Swelling Verified 07/09/21 13:26 ED Review of Systems ROS: Stated complaint: HYPERGLYCEMIA Other details as noted in HPI Comment: All other systems reviewed and negative Constitutional: denies: chills, fever Respiratory: denies: cough, shortness of breath, SOB with exertion Cardiovascular: denies: chest pain, palpitations Gastrointestinal: abdominal pain, nausea, vomiting. denies: diarrhea Musculoskeletal: denies: back pain Neurological: denies: headache, weakness, numbness, paresthesias, confusion ED Past Medical Hx - Past Medical History Hx Hypertension: Yes Hx Congestive Heart Failure: No Hx Diabetes: Yes Hx Arthritis: Yes (knees) Hx Asthma: Yes Hx COPD: No Hx HIV: No - Surgical History Additional Surgical History: right bka 2017 - Social History Smoking Status: Never Smoker - Medications Home Medications: Home Medications Medication Instructions Recorded Confirmed Last Taken Type Insulin Glargine [Lantus VIAL] 8 units SUB-Q QHS 30 Days #3 ml 06/19/21 Unknown Rx carvediloL [Coreg] 12.5 mg PO BID 30 Days #60 tablet 06/19/21 Unknown Rx Metoclopramide [Reglan] 10 mg PO TID PRN #15 tab 07/09/21 Unknown Rx Nitrofurantoin [place]/M-Cryst 100 mg PO Q12HR #14 capsule 07/09/21 Unknown Rx [Macrobid CAP] ED Physical Exam - General General appearance: alert, in no apparent distress - Head Head exam: Present: atraumatic, normocephalic, normal inspection - Eye Eye exam: Present: normal appearance - ENT ENT exam: Present: mucous membranes dry - Neck Neck exam: Present: normal inspection, full ROM. Absent: tenderness, meningismus - Respiratory Respiratory exam: Present: normal lung sounds bilaterally - Cardiovascular Cardiovascular Exam: Present: regular rate, normal rhythm, normal heart sounds - GI/Abdominal GI/Abdominal exam: Present: soft, normal bowel sounds. Absent: distended, tenderness, guarding, rebound, rigid, organomegaly, mass, bruit, pulsatile mass, hernia - Back Exam Back exam: Present: normal inspection - Neurological Exam Neurological exam: Present: alert, oriented X3, CN II-XII intact. Absent: motor sensory deficit - Psychiatric Psychiatric exam: Present: normal mood - Skin Skin exam: Present: warm, dry, intact, normal color ED Course Vital Signs 08/11/21 08/11/21 08/11/21 22:50 22:58 23:00 Temperature 98.6 F Pulse Rate 125 H 127 H 125 H Respiratory 15 15 15 Rate Blood Pressure 181/89 O2 Sat by Pulse 100 100 100 Oximetry 08/11/21 08/11/21 08/12/21 23:18 23:30 00:00 Temperature Pulse Rate 142 H 123 H Respiratory 17 18 Rate Blood Pressure 181/89 163/105 O2 Sat by Pulse 100 100 99 Oximetry 08/12/21 08/12/21 08/12/21 00:54 01:00 01:30 Temperature Pulse Rate 130 H 122 H 111 H Respiratory 12 12 15 Rate Blood Pressure 170/104 178/95 178/95 O2 Sat by Pulse 98 95 Oximetry 08/12/21 02:00 Temperature Pulse Rate 109 H Respiratory 13 Rate Blood Pressure 119/71 O2 Sat by Pulse 100 Oximetry ED Medical Decision Making - Lab Data Result diagrams: 08/11/21 23:29 08/11/21 23:29 - Radiology Data Radiology results: report reviewed - Medical Decision Making Patient is 31 years old female with history of type 1 diabetes, hypertension on right below-knee amputation. Patient with multiple admission for DKA. Patient is noncompliant with her insulin. Patient brought to the emergency room via EMS from home for evaluation of nausea and vomiting for the last 5 days. Patient denied any chest pain, shortness of breath, cough, fever or chills. Patient found to have blood glucose of 458. Patient was started on normal saline, insulin and Zofran. Patient also received morphine for pain. Patient stated that she is feeling much better. Labs reviewed and showed elevated blood glucose with elevated anion gap however patient is not in DKA. Patient blood glucose improved to 160 10:01 units of regular insulin. Urine is positive for UTI. Patient received Rocephin 1 g IV. I will discharge patient with prescription for Macrobid and Zofran and advised to follow-up with her primary doctor in the next 2 to 3days. I also counseled the patient about compliant with her insulin. Critical care attestation.: If time is entered above; I have spent that time in minutes in the direct care of this critically ill patient, excluding procedure time. ED Disposition Clinical Impression: Acute hyperglycemia, Acute nausea with nonbilious vomiting, Acute UTI Disposition: HOME / SELF CARE / HOMELESS Is pt being admited?: No Condition: Stable Instructions: Hyperglycemia, [id number], Vomiting, Adult, Urinary Tract Infection, Adult, [id number] Referrals: PRIMARY CARE, [Primary Care Provider] - 3-5 Days
[2021-08-12 00:05] LABS: Alanine Aminotransferase 10 units/L (7-56); Albumin 4.1 g/dL (3.9-5); BUN/Creatinine Ratio 20; Blood Urea Nitrogen 30 mg/dL (7-17); Calcium 9.7 mg/dL (8.4-10.2); Hemolysis Index 2
[2021-08-12 00:11] LABS: Basophils # (Auto) 0.2 K/mm3 (0.0-0.1); Hematocrit 37.5 % (30.3-42.9); Hemoglobin 12.3 gm/dl (10.1-14.3); Lymphocytes # (Auto) 1.5 K/mm3 (1.2-5.4); Lymphocytes % (Auto) 9.4 % (13.4-35.0); Mean Corpuscular HGB Conc 33 % (30-34); Mean Corpuscular Volume 89 fl (79-97); Monocytes # (Auto) 0.5 K/mm3 (0.0-0.8); Monocytes % (Auto) 3.4 % (0.0-7.3); Platelet Count 365 K/mm3 (140-440); Red Blood Count 4.22 M/mm3 (3.65-5.03); Red Cell Distribution Width 14.3 % (13.2-15.2)
[2021-08-12] MEDS ORDERED: MORPHINE 4 MG/1 ML INJ IV ONE (00:11)
[2021-08-12] MEDS ORDERED: ONDANSETRON 4 MG/2 ML INJ IV ONE (00:12)
[2021-08-12 00:49] LABS: Bilirubin,Direct < 0.2 mg/dL (0-0.2)
[2021-08-12 01:42] LABS: Bacteria,Urine 4+ /HPF (Negative); Bilirubin,Urine NEG (Negative); Blood,Urine MOD (Negative); Color,Urine Yellow (Yellow); Mucus,Urine FEW /HPF; Urobilinogen,Urine < 2.0 mg/dL (<2.0)
[2021-08-12 01:46] LABS: Protein,Urine >500 mg/dL (Negative)
[2021-08-12] MEDS ORDERED: cefTRIAXone/NS 1 GM/50 ML 1 GM/50 ML BAG IV ONE (02:00)
[2021-08-12] MEDS ORDERED: SODIUM CHLORIDE 0.9% 1000 ML 1,000 ML ONE (03:20)
[2021-08-12] MEDS ORDERED: SODIUM CHLORIDE 0.9% 1000 ML 1,000 ML IV ONE (03:20)
[2021-08-12 06:11] VITALS: BP 140/82
== END 2021-08-12 06:00 | disposition home or self-care (01) ==
LOC: ED 21:18
DX: E10.65 Type 1 diabetes mellitus with hyperglycemia (principal); N39.0 Urinary tract infection, site not specified; R11.2 Nausea with vomiting, unspecified; I10 Essential (primary) hypertension; J45.909 Unspecified asthma, uncomplicated; M19.90 Unspecified osteoarthritis, unspecified site; Z91.040 Latex allergy status; Z79.899 Other long term (current) drug therapy
CPT/HCPCS: 36415; 80048; 80076; 81001; 82962; 83690; 84703; 85025; 96361; 96365; 96375; 96376; 99284; J0696; J2270; J2405; J7030; Q0162; Q9967; J1815

== ENCOUNTER 2021-10-09 13:04 | Inpatient (IN) | payer MEDICARE ==
[2021-10-09] MEDS ORDERED: SODIUM CHLORIDE 0.9% 1000 ML 1,000 ML IV ONE ×2 (14:13→15:46)
[2021-10-09 14:46] LABS: Alanine Aminotransferase 9 units/L (7-56); Albumin 3.8 g/dL (3.9-5); BUN/Creatinine Ratio 11; Blood Urea Nitrogen 17 mg/dL (7-17); Calcium 9.2 mg/dL (8.4-10.2); Hemolysis Index 5
[2021-10-09 14:55] LABS: Basophils # (Auto) 0.1 K/mm3 (0.0-0.1); Eosinophils # (Auto) 0.2 K/mm3 (0.0-0.4); Eosinophils % (Auto) 2.6 % (0.0-4.3); Hematocrit 34.8 % (30.3-42.9); Lymphocytes # (Auto) 1.5 K/mm3 (1.2-5.4); Mean Corpuscular HGB Conc 32 % (30-34); Mean Corpuscular Volume 91 fl (79-97); Monocytes # (Auto) 0.4 K/mm3 (0.0-0.8); Monocytes % (Auto) 4.9 % (0.0-7.3); Platelet Count 328 K/mm3 (140-440); Red Blood Count 3.81 M/mm3 (3.65-5.03); Red Cell Distribution Width 13.9 % (13.2-15.2)
[2021-10-09] MEDS ORDERED: INSULIN REGULAR, HUMAN 100 UNITS/1 ML IV ONE (15:16)
--- NOTE | 2021-10-09 15:16 | XRay Report ---
CHEST 1 VIEW 10/09/2021 2:58 PM INDICATION / CLINICAL INFORMATION: htn emergency. COMPARISON: 07/09/2021. FINDINGS: SUPPORT DEVICES: None. HEART / MEDIASTINUM: No significant abnormality. LUNGS / PLEURA: No significant pulmonary or pleural abnormality. No pneumothorax. ADDITIONAL FINDINGS: No significant additional findings. IMPRESSION: No acute abnormality. Signer Name: Carlos Bean MD Signed: 10/09/2021 3:12 PM Workstation Name: [id number]
[2021-10-09 15:25] LABS: INR 0.86 (0.87-1.13)
[2021-10-09 15:26] LABS: Partial Thromboplastin Time 29.7 Sec. (24.2-36.6)
[2021-10-09] MEDS ORDERED: CEFEPIME/NS 2 GM/100 ML 2 GM/100 ML BAG IV ONE (15:46)
[2021-10-09 15:57] LABS: Bacteria,Urine 1+ /HPF (Negative); Bilirubin,Urine NEG (Negative); Blood,Urine SM (Negative); Color,Urine Yellow (Yellow); Mucus,Urine FEW /HPF; Urobilinogen,Urine < 2.0 mg/dL (<2.0)
[2021-10-09] MEDS ORDERED: VANCOMYCIN/NS 1 GM/250 ML 1 GM/250 ML BAG IV ONE (16:00)
[2021-10-09 16:02] LABS: Amphetamine Screen,Urine Negative; Benzodiazepines Screen,Urine Negative; Cocaine Screen,Urine Negative; Methadone Screen,Urine Negative; Opiate Screen,Urine Negative
[2021-10-09] MEDS ORDERED: DEXTROSE 50% IN WATER (25GM) 50 ML SYRINGE IV PRN ×2 (16:06→16:31)
--- NOTE | 2021-10-09 16:13 | XRay Report ---
LEFT ANKLE 3 VIEWS INDICATION / CLINICAL INFORMATION: ulcer COMPARISON: None available. FINDINGS: BONES / JOINT(S): No acute fracture or subluxation. No significant arthritis. No bony destruction. SOFT TISSUES: No significant abnormality. ADDITIONAL FINDINGS: None. Signer Name: Carlos Bean MD Signed: 10/09/2021 4:09 PM Workstation Name: [id number]
--- NOTE | 2021-10-09 16:14 | XRay Report ---
RIGHT FOOT 3 VIEWS INDICATION / CLINICAL INFORMATION: assess for gas COMPARISON: None available. FINDINGS: BONES / JOINT(S): No acute fracture or subluxation. No significant arthritis. SOFT TISSUES: No significant abnormality. ADDITIONAL FINDINGS: None. Signer Name: Carlos Bean MD Signed: 10/09/2021 4:10 PM Workstation Name: [id number]
[2021-10-09] MEDS ORDERED: SODIUM CHLORIDE 0.9% 1000 ML 3,000 ML IV ONE (16:29)
[2021-10-09] MEDS ORDERED: INSULIN LISPRO 100 UNIT/ML SUB-Q ONE (16:31)
[2021-10-09 16:32] LABS: Cannabinoid Screen,Urine Positive
--- NOTE | 2021-10-09 16:35 | Emergency Department Report ---
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 The patient reports that she has been out of her blood pressure meds for a month. She says she gives herself insulin and checks her blood sugar but not as often as she is supposed to. For the past week she has noted nonhealing ulcer to the lateral aspect of her left heel and with some discoloration of her toes on that side. Is caused significant pain at the site of her ulcer in her ankle. She has had intermittent episodes of nausea vomiting for the past week. When asked if her blood sugars have been elevated she says yes but is unable to provide a number. She states that the reason she did not get her blood pressure medications has to do with her insurance/payment issues. Other than the aforementioned symptoms she denies any headache, vision change, fever, chest pain, cough, shortness of breath, abdominal pain, dysuria, focal weakness, sensory changes, or any other complaints ED Past Medical Hx - Past Medical History Hx Hypertension: Yes Hx Congestive Heart Failure: No Hx Diabetes: Yes Hx Arthritis: Yes (knees) Hx Asthma: Yes Hx COPD: No Hx HIV: No - Surgical History Additional Surgical History: right bka 2016 - Social History Smoking Status: Never Smoker - Medications Home Medications: Home Medications Medication Instructions Recorded Confirmed Last Taken Type Insulin Glargine [Lantus VIAL] 8 units SUB-Q QHS 30 Days #3 ml 06/19/21 Unknown Rx carvediloL [Coreg] 12.5 mg PO BID 30 Days #60 tablet 06/19/21 Unknown Rx Metoclopramide [Reglan] 10 mg PO TID PRN #15 tab 07/09/21 Unknown Rx Nitrofurantoin [place]/M-Cryst 100 mg PO Q12HR #14 capsule 07/09/21 Unknown Rx [Macrobid CAP] Nitrofurantoin [place]/M-Cryst 100 mg PO Q12HR #14 capsule 08/12/21 Unknown Rx [Macrobid CAP] Ondansetron [Zofran Odt] 4 mg PO Q8HR PRN #14 tab.rapdis 08/12/21 Unknown Rx traMADoL [Ultram 50 MG tab] 50 mg PO Q4HR PRN #14 tablet 08/12/21 Unknown Rx ED Review of Systems ROS: Stated complaint: DIABETIC PROBLEM Other details as noted in HPI Comment: All other systems reviewed and negative Constitutional: denies: chills, fever Eyes: denies: eye pain, vision change ENT: denies: throat pain, congestion Respiratory: denies: cough, shortness of breath Cardiovascular: denies: chest pain, palpitations Gastrointestinal: nausea, vomiting. denies: abdominal pain, diarrhea Genitourinary: denies: dysuria, frequency Musculoskeletal: other (Left ankle/foot pain). denies: back pain, arthralgia Skin: change in color. denies: rash Neurological: denies: headache, weakness, numbness Hematological/Lymphatic: denies: easy bleeding Physical Exam - Physical Exam Vital Signs: Vital Signs 10/09/21 10/09/21 10/09/21 13:42 14:12 14:15 Temperature 98.4 F Pulse Rate 109 H 103 H Respiratory 20 24 Rate Blood Pressure 142/94 142/94 Blood Pressure 207/96 [Right] O2 Sat by Pulse 100 100 Oximetry 10/09/21 10/09/21 10/09/21 14:31 14:45 15:01 Temperature Pulse Rate 102 H 95 H 99 H Respiratory 18 19 10 L Rate Blood Pressure 150/90 150/90 150/90 Blood Pressure [Right] O2 Sat by Pulse 100 100 99 Oximetry 10/09/21 10/09/21 10/09/21 15:05 15:11 15:15 Temperature Pulse Rate 98 H 99 H Respiratory 19 Rate Blood Pressure 215/100 154/93 Blood Pressure [Right] O2 Sat by Pulse 99 100 Oximetry 10/09/21 10/09/21 10/09/21 15:31 15:45 16:01 Temperature Pulse Rate 101 H 101 H 115 H Respiratory 14 11 L 13 Rate Blood Pressure 166/107 187/97 178/140 Blood Pressure [Right] O2 Sat by Pulse 100 100 100 Oximetry Physical Exam: GENERAL: Well developed and well nourished. No acute distress HEAD: Normocephalic. No obvious signs of trauma. ENT: Dry mucous membranes. Very poor dentition. EYES: Extraocular movements are intact. Pupils are equal round and reactive to light bilaterally NECK: Supple. Full ROM is intact. Trachea is midline. LUNGS: Tachypneic but not in respiratory distress. Equal chest rise bilaterally . Scattered rhonchi. No rales appreciated. CARDIOVASCULAR: Regular rate and rhythm. No murmurs or rubs. VASCULAR: Cap refill < 2 seconds. 1+ DP pulse on the left. Right BKA amputation noted. ABDOMEN: Abdomen is soft and nondistended. There is no significant tenderness, guarding or rebound. SKIN: Skin is warm and dry. There is a small superficial ulcer noted to the lateral aspect of the left ankle. Left toes 1 and 2 as well as 5 are dusky and with distal purplish discoloration. No fluctuance appreciated. NEURO: Patient is awake, alert, and oriented. 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 No focal deficits. Normal motor and sensory exam throughout. Normal speech. MUSCULOSKELETAL: Right BKA noted.. No significant tenderness. Normal ROM throughout. BACK/SPINE: No costovertebral angle tenderness. ED Course Vital Signs 10/09/21 10/09/21 10/09/21 13:42 14:12 14:15 Temperature 98.4 F Pulse Rate 109 H 103 H Respiratory 20 24 Rate Blood Pressure 142/94 142/94 Blood Pressure 207/96 [Right] O2 Sat by Pulse 100 100 Oximetry 10/09/21 10/09/21 10/09/21 14:31 14:45 15:01 Temperature Pulse Rate 102 H 95 H 99 H Respiratory 18 19 10 L Rate Blood Pressure 150/90 150/90 150/90 Blood Pressure [Right] O2 Sat by Pulse 100 100 99 Oximetry 10/09/21 10/09/21 10/09/21 15:05 15:11 15:15 Temperature Pulse Rate 98 H 99 H Respiratory 19 Rate Blood Pressure 215/100 154/93 Blood Pressure [Right] O2 Sat by Pulse 99 100 Oximetry 10/09/21 10/09/21 10/09/21 15:31 15:45 16:01 Temperature Pulse Rate 101 H 101 H 115 H Respiratory 14 11 L 13 Rate Blood Pressure 166/107 187/97 178/140 Blood Pressure [Right] O2 Sat by Pulse 100 100 100 Oximetry ED Medical Decision Making - Lab Data Result diagrams: 10/09/21 13:58 10/09/21 17:54 Lab Results 0210/09/21 10/09/21 Range/Units 13:42 13:58 13:58 WBC 8.1 (4.5-11.0) K/mm3 RBC 3.81 (3.65-5.03) M/mm3 Hgb 11.0 (10.1-14.3) gm/dl Hct 34.8 (30.3-42.9) % MCV 91 (79-97) fl MCH 29 (28-32) pg MCHC 32 (30-34) % RDW 13.9 (13.2-15.2) % Plt Count 328 (140-440) K/mm3 Lymph % (Auto) 18.0 (13.4-35.0) % [place] % (Auto) 4.9 (0.0-7.3) % Eos % (Auto) 2.6 (0.0-4.3) % Baso % (Auto) 1.0 (0.0-1.8) % Lymph # (Auto) 1.5 (1.2-5.4) K/mm3 [place] # (Auto) 0.4 (0.0-0.8) K/mm3 Eos # (Auto) 0.2 (0.0-0.4) K/mm3 Baso # (Auto) 0.1 (0.0-0.1) K/mm3 Seg Neutrophils % 73.5 H (40.0-70.0) % Seg Neutrophils # 6.0 (1.8-7.7) K/mm3 PT (12.2-14.9) Sec. INR (0.87-1.13) APTT (24.2-36.6) Sec. VBG pH (7.320-7.420) Sodium 134 L (137-145) mmol/L Potassium 5.0 (3.6-5.0) mmol/L Chloride 98.2 (98-107) mmol/L Carbon Dioxide 23 (22-30) mmol/L Anion Gap 18 mmol/L BUN 17 (7-17) mg/dL Creatinine 1.6 H (0.6-1.2) mg/dL Estimated GFR 45 ml/min BUN/Creatinine Ratio 11 % Glucose 512 H* (65-100) mg/dL POC Glucose 464 H (70-105) mg/dL Calcium 9.2 (8.4-10.2) mg/dL Magnesium (1.7-2.3) mg/dL Total Bilirubin < 0.20 (0.1-1.2) mg/dL AST 11 (5-40) units/L ALT 9 (7-56) units/L Alkaline Phosphatase 149 H (35-129) units/L Troponin T (0.00-0.029) ng/mL NT-Pro-B Natriuret Pep (0-450) pg/mL Total Protein 7.0 (6.3-8.2) g/dL Albumin 3.8 L (3.9-5) g/dL Albumin/Globulin Ratio 1.2 % Lipase (13-60) units/L TSH (0.270-4.200) mlU/mL HCG, Qual (Negative) Plasma/Serum Alcohol (0-0.07) % 10/09/21 10/09/21 10/09/21 Range/Units 13:58 13:58 14:48 WBC (4.5-11.0) K/mm3 RBC (3.65-5.03) M/mm3 Hgb (10.1-14.3) gm/dl Hct (30.3-42.9) % MCV (79-97) fl MCH (28-32) pg MCHC (30-34) % RDW (13.2-15.2) % Plt Count (140-440) K/mm3 Lymph % (Auto) (13.4-35.0) % [place] % (Auto) (0.0-7.3) % Eos % (Auto) (0.0-4.3) % Baso % (Auto) (0.0-1.8) % Lymph # (Auto) (1.2-5.4) K/mm3 [place] # (Auto) (0.0-0.8) K/mm3 Eos # (Auto) (0.0-0.4) K/mm3 Baso # (Auto) (0.0-0.1) K/mm3 Seg Neutrophils % (40.0-70.0) % Seg Neutrophils # (1.8-7.7) K/mm3 PT 12.7 (12.2-14.9) Sec. INR 0.86 L (0.87-1.13) APTT 29.7 (24.2-36.6) Sec. VBG pH 7.271 L (7.320-7.420) Sodium (137-145) mmol/L Potassium (3.6-5.0) mmol/L Chloride (98-107) mmol/L Carbon Dioxide (22-30) mmol/L Anion Gap mmol/L BUN (7-17) mg/dL Creatinine (0.6-1.2) mg/dL Estimated GFR ml/min BUN/Creatinine Ratio % Glucose (65-100) mg/dL POC Glucose (70-105) mg/dL Calcium (8.4-10.2) mg/dL Magnesium (1.7-2.3) mg/dL Total Bilirubin (0.1-1.2) mg/dL AST (5-40) units/L ALT (7-56) units/L Alkaline Phosphatase (35-129) units/L Troponin T (0.00-0.029) ng/mL NT-Pro-B Natriuret Pep (0-450) pg/mL Total Protein (6.3-8.2) g/dL Albumin (3.9-5) g/dL Albumin/Globulin Ratio % Lipase (13-60) units/L TSH (0.270-4.200) mlU/mL HCG, Qual Negative (Negative) Plasma/Serum Alcohol (0-0.07) % 10/09/21 10/09/21 10/09/21 Range/Units 14:48 14:48 14:48 WBC (4.5-11.0) K/mm3 RBC (3.65-5.03) M/mm3 Hgb (10.1-14.3) gm/dl Hct (30.3-42.9) % MCV (79-97) fl MCH (28-32) pg MCHC (30-34) % RDW (13.2-15.2) % Plt Count (140-440) K/mm3 Lymph % (Auto) (13.4-35.0) % [place] % (Auto) (0.0-7.3) % Eos % (Auto) (0.0-4.3) % Baso % (Auto) (0.0-1.8) % Lymph # (Auto) (1.2-5.4) K/mm3 [place] # (Auto) (0.0-0.8) K/mm3 Eos # (Auto) (0.0-0.4) K/mm3 Baso # (Auto) (0.0-0.1) K/mm3 Seg Neutrophils % (40.0-70.0) % Seg Neutrophils # (1.8-7.7) K/mm3 PT (12.2-14.9) Sec. INR (0.87-1.13) APTT (24.2-36.6) Sec. VBG pH (7.320-7.420) Sodium (137-145) mmol/L Potassium (3.6-5.0) mmol/L Chloride (98-107) mmol/L Carbon Dioxide (22-30) mmol/L Anion Gap mmol/L BUN (7-17) mg/dL Creatinine (0.6-1.2) mg/dL Estimated GFR ml/min BUN/Creatinine Ratio % Glucose (65-100) mg/dL POC Glucose (70-105) mg/dL Calcium (8.4-10.2) mg/dL Magnesium 1.90 (1.7-2.3) mg/dL Total Bilirubin (0.1-1.2) mg/dL AST (5-40) units/L ALT (7-56) units/L Alkaline Phosphatase (35-129) units/L Troponin T < 0.010 (0.00-0.029) ng/mL NT-Pro-B Natriuret Pep 408.9 (0-450) pg/mL Total Protein (6.3-8.2) g/dL Albumin (3.9-5) g/dL Albumin/Globulin Ratio % Lipase 51 (13-60) units/L TSH 0.795 (0.270-4.200) mlU/mL HCG, Qual (Negative) Plasma/Serum Alcohol < 0.01 (0-0.07) % 10/09/21 10/09/21 Range/Units 16:31 17:10 WBC (4.5-11.0) K/mm3 RBC (3.65-5.03) M/mm3 Hgb (10.1-14.3) gm/dl Hct (30.3-42.9) % MCV (79-97) fl MCH (28-32) pg MCHC (30-34) % RDW (13.2-15.2) % Plt Count (140-440) K/mm3 Lymph % (Auto) (13.4-35.0) % [place] % (Auto) (0.0-7.3) % Eos % (Auto) (0.0-4.3) % Baso % (Auto) (0.0-1.8) % Lymph # (Auto) (1.2-5.4) K/mm3 [place] # (Auto) (0.0-0.8) K/mm3 Eos # (Auto) (0.0-0.4) K/mm3 Baso # (Auto) (0.0-0.1) K/mm3 Seg Neutrophils % (40.0-70.0) % Seg Neutrophils # (1.8-7.7) K/mm3 PT (12.2-14.9) Sec. INR (0.87-1.13) APTT (24.2-36.6) Sec. VBG pH (7.320-7.420) Sodium (137-145) mmol/L Potassium (3.6-5.0) mmol/L Chloride (98-107) mmol/L Carbon Dioxide (22-30) mmol/L Anion Gap mmol/L BUN (7-17) mg/dL Creatinine (0.6-1.2) mg/dL Estimated GFR ml/min BUN/Creatinine Ratio % Glucose (65-100) mg/dL POC Glucose 392 H 278 H (70-105) mg/dL Calcium (8.4-10.2) mg/dL Magnesium (1.7-2.3) mg/dL Total Bilirubin (0.1-1.2) mg/dL AST (5-40) units/L ALT (7-56) units/L Alkaline Phosphatase (35-129) units/L Troponin T (0.00-0.029) ng/mL NT-Pro-B Natriuret Pep (0-450) pg/mL Total Protein (6.3-8.2) g/dL Albumin (3.9-5) g/dL Albumin/Globulin Ratio % Lipase (13-60) units/L TSH (0.270-4.200) mlU/mL HCG, Qual (Negative) Plasma/Serum Alcohol (0-0.07) % - Radiology Data Radiology results: report reviewed - Medical Decision Making 31-year-old female with hypertension, diabetes with frequent DKA presentations presenting with 1 week of left heel ulcer/pain and nausea vomiting. Has been out of hypertensive meds for the past month. Initial presentation she is noted to be tachycardic in the 100s and with severely elevated blood pressure of 207/96. Her initial fingerstick blood glucose is in the 400s. She has dry mucous membranes and poor dentition. She is a left ankle lateral ulcer with dusky appearing toes and weak DP pulse on the left. She has a nonfocal neurologic exam. She is no abdominal tenderness. We will send a full set of labs and cultures including venous pH we will give 1 L of IV fluids for now. We will also give 20 mg of labetalol given her blood pressure. Given the appearance of the left foot ulcer and toes we will consult surgery. We also obtain plain film x-rays of the left ankle and foot as well as chest x- ray. We will give empiric vancomycin, cefepime, and clindamycin given that she has diabetes. Labs revealed no significant leukocytosis or anemia. Chemistry reveals cr eatinine of 1.6 which is near the patient's baseline of 1.4. Potassium is 5.0. Glucose is 512 and there is an anion gap of 18. Her venous pH is 7.27 consistent with DKA. Troponin is negative. BNP is normal. TSH is normal. We will give an additional 1 L of IV fluids and 10 units of IV insulin and plan to start her on an insulin drip. I spoke with Dr. Greer of general surgery regarding the case and she says she will consult to give further recommendations but agrees with current management Chest x-ray shows no acute abnormalities. X-rays of the left ankle and foot show no acute abnormalities. I spoke with Dr. Ackerman of critical care medicine regarding the case and she agrees patient should be started on insulin drip and come to the ICU. I spoke with Dr. Bowen, the on-call hospitalist regarding the case and he accepts patient for admission will assume care. He asked that I consult vascular surgery which I will do. The patient's blood pressure remains significantly elevated and therefore she will be started on a Cardene drip. I spoke with the patient extensively and explained the need for admission and further management and she expressed understanding and agreement. I spoke with Dr. Paulino of vascular surgery regarding the case and he says there is no need to do a CTA right now but he will provide further recommendations as an inpatient Critical Care Time: Yes Critical care time in (mins) excluding proc time.: 60 Critical care attestation.: If time is entered above; I have spent that time in minutes in the direct care of this critically ill patient, excluding procedure time. Critical care time spent in the evaluation/assessment, work-up, and management DKA, hypertensive emergency, and diabetic left foot wound requiring initiation of an insulin drip, Cardene drip, consultation with multiple specialist, broad- spectrum antibiotics, extensive discussion with the patient and specialist as well as repeat reevaluation reassessment. ED Disposition Clinical Impression: DKA (diabetic ketoacidosis), Noncompliance with medication regimen, Renal insufficiency, Peripheral vascular disease, Hypertensive emergency, Foot ulcer, left, UTI (urinary tract infection) Disposition: 09 ADMITTED INPATIENT Is pt being admited?: Yes
[2021-10-09] MEDS ORDERED: DEXTROSE 10% *Hypoglycemia IV PRN (16:43)
[2021-10-09] MEDS ORDERED: niCARdipine DRIP 40 MG/200 ML BAG IV ONE (16:47)
[2021-10-09] MEDS ORDERED: D5W/0.45% NACL/KCL 20 MEQ 20 MEQ/1,000 ML BAG IV SCH (17:00)
[2021-10-09] MEDS ORDERED: INSULIN REGULAR, HUMAN 100 UNITS in SODIUM CHLORIDE 0.9% 99 ML IV SCH (17:00)
[2021-10-09] MEDS ORDERED: ACETAMINOPHEN 325 MG TAB PO PRN (17:16)
[2021-10-09] MEDS ORDERED: HYDROmorphone 1 MG/1 ML INJ IV PRN (17:16)
--- NOTE | 2021-10-09 17:18 | History and Physical Report ---
History of Present Illness Chief complaint: I wanted to get my foot checked out and I ran out of my medication History of present illness: 31 YO Female with HTN, DM, OA, Mild Intermittent Asthma, PVD S/P Right BKA, Crow miracle Dependence, Chronic Left foot ulcer presents to ED for evaluation. Patient reports "I want to get my foot looked at, and I went medication". Patient states that she is concerned about the nonhealing ulcer on the lateral aspect of her left foot. Patient states that she has experienced swelling as well as discoloration to her toes. Patient knowledges medication noncompliance. Patient states that she ran out of her antihypertensive medication approximately 1 month ago, and has been unable to purchase her insulin and has experienced elevated glucose levels over the past 3 days. Patient transported to [facility] for further care and evaluation of the aforementioned symptoms. The patient was seen and evaluated in the emergency department. All lab and imaging studies reviewed. Patient found to have hyperosmolar hyperglycemic state, urinary tract infection, volume depletion, as well accelerated hypertension. Patient restarted on antihypertensive therapy with improvement in symptoms. Patient found to have chronic healing ulcer to lateral aspect of left foot. Vascular surgery consulted in ED. Surgical team consulted in ED. Patient denies fever, chills, chest pain, palpitation, adductive cough, skin rash or recent contact, known exposure to COVID-19. Prior admission on 06/18/2021 reviewed. All medication listed at time of admission has been reconciled. Advanced care planning conducted in ED. Past History Past Medical History: arthritis, diabetes, hypertension, PVD Past Surgical History: Other (Right BKA) Social history: single, smoking Medications and Allergies Allergies Allergy/AdvReac Type Severity Reaction Status Date / Time latex Allergy Swelling Verified 10/09/21 13:42 Home Medications Medication Instructions Recorded Confirmed Last Taken Type Insulin Glargine [Lantus VIAL] 8 units SUB-Q QHS 30 Days #3 ml 06/19/21 Unknown Rx carvediloL [Coreg] 12.5 mg PO BID 30 Days #60 tablet 06/19/21 Unknown Rx Metoclopramide [Reglan] 10 mg PO TID PRN #15 tab 07/09/21 Unknown Rx Nitrofurantoin [place]/M-Cryst 100 mg PO Q12HR #14 capsule 07/09/21 Unknown Rx [Macrobid CAP] Nitrofurantoin [place]/M-Cryst 100 mg PO Q12HR #14 capsule 08/12/21 Unknown Rx [Macrobid CAP] Ondansetron [Zofran Odt] 4 mg PO Q8HR PRN #14 tab.rapdis 08/12/21 Unknown Rx traMADoL [Ultram 50 MG tab] 50 mg PO Q4HR PRN #14 tablet 08/12/21 Unknown Rx Active Meds: Active Medications Acetaminophen (Acetaminophen 325 Mg Tab) 650 mg PO Q4H PRN PRN Reason: Pain MILD(1-3)/Fever >100.5/F[place] Dextrose (Dextrose 10% *Hypoglycemia) 0 ml IV PRN PRN PRN Reason: Hypoglycemia Vancomycin HCl (Vancomycin/Ns 1 Gm/250 Ml) 1 gm in 250 mls @ 160.085 mls/hr IV ONCE ONE; Protocol Stop: 10/09/21 17:33 Last Admin: 10/09/21 16:55 Dose: 160.085 mls/hr Sodium Chloride (Nacl 0.9% 1000 Ml) 3,000 mls @ 999 mls/hr IV BOLUS ONE Stop: 10/09/21 19:29 Insulin Human Lispro (Insulin Lispro 100 Unit/Ml) 0 unit SUB-Q Q6HR CHUCK; Protocol Ondansetron HCl (Ondansetron 4 Mg/2 Ml Inj) 4 mg IV Q8H PRN PRN Reason: Nausea And Vomiting Sodium Chloride (Sodium Chloride 0.9% 10 Ml Flush Syringe) 10 ml IV BID CHUCK Sodium Chloride (Sodium Chloride 0.9% 10 Ml Flush Syringe) 10 ml IV PRN PRN PRN Reason: LINE FLUSH Review of Systems Constitutional: other (Elevated glucose levels) Ears, nose, mouth and throat: no ear pain, no ear discharge, no nose pain, no nasal congestion, no nasal discharge Breasts: no change in shape, no swelling, no mass Cardiovascular: no chest pain, no orthopnea, no palpitations, no edema, no syncope Respiratory: no cough, no excessive sputum, no shortness of breath, no dyspnea on exertion Gastrointestinal: no abdominal pain, no nausea, no vomiting, no diarrhea, no change in bowel habits Genitourinary Female: no pelvic pain, no flank pain, no dysuria, no urinary freq uency, no urgency Rectal: no pain, no incontinence, no bleeding Musculoskeletal: no neck stiffness, no neck pain, no shooting arm pain, no low back pain, no shooting leg pain Integumentary: no rash, no pruritis, no redness, no sores, no wounds Neurological: no head injury, no transient paralysis, no paralysis, no parathesias, no seizures Psychiatric: no anxiety, no change in sleep habits, no sleep disturbances, no insomnia, no hypersomnia, no disorientation Endocrine: no cold intolerance, no heat intolerance, no polyphagia, no excessive thirst, no nocturia Hematologic/Lymphatic: no easy bruising, no easy bleeding Allergic/Immunologic: no allergic rhinitis, no wheezing Exam - Constitutional Vitals: Temp Pulse Resp BP Pulse Ox 98.4 F 108 H 11 L 159/86 100 10/09/21 13:42 10/09/21 17:01 10/09/21 17:01 10/09/21 17:01 10/09/21 17:01 General appearance: Present: mild distress - EENT Eyes: Present: PERRL ENT: hearing intact, clear oral mucosa - Neck Neck: Present: supple, normal ROM - Respiratory Respiratory effort: normal Respiratory: bilateral: CTA - Cardiovascular Heart Sounds: Present: S1 & S2. Absent: rub, click - Extremities Extremities: pulses symmetrical, No edema Extremity abnormal: pulses diminished, other (Left lower extremity is warm to the touch, pulses diminished but intact, motor and sensory is intact. No erythema, no edema.) Peripheral Pulses: within normal limits - Abdominal General gastrointestinal: Present: soft, non-tender, non-distended, normal bowel sounds Female genitourinary: Present: normal - Integumentary Integumentary: Present: clear, warm, dry - Musculoskeletal Musculoskeletal: gait normal, strength equal bilaterally - Psychiatric Psychiatric: appropriate mood/affect, intact judgment & insight - Neurologic Neurologic: CNII-XII intact, moves all extremities HEART Score - HEART Score Troponin: Troponin T < 0.010 ng/mL (0.00-0.029) 10/09/21 14:48 Results - Labs CBC & Chem 7: 10/09/21 13:58 10/09/21 13:58 Labs: Abnormal lab results 10/09/21 10/09/21 10/09/21 Range/Units 13:42 13:58 13:58 Seg Neutrophils % 73.5 H (40.0-70.0) % INR (0.87-1.13) VBG pH (7.320-7.420) Sodium 134 L (137-145) mmol/L Creatinine 1.6 H (0.6-1.2) mg/dL Glucose 512 H* (65-100) mg/dL POC Glucose 464 H (70-105) mg/dL Alkaline Phosphatase 149 H (35-129) units/L Albumin 3.8 L (3.9-5) g/dL Urine WBC (Auto) (0.0-6.0) /HPF 10/09/21 10/09/21 10/09/21 Range/Units 13:58 14:48 16:31 Seg Neutrophils % (40.0-70.0) % INR 0.86 L (0.87-1.13) VBG pH 7.271 L (7.320-7.420) Sodium (137-145) mmol/L Creatinine (0.6-1.2) mg/dL Glucose (65-100) mg/dL POC Glucose 392 H (70-105) mg/dL Alkaline Phosphatase (35-129) units/L Albumin (3.9-5) g/dL Urine WBC (Auto) (0.0-6.0) /HPF 10/09/21 10/09/21 Range/Units 17:10 Unknown Seg Neutrophils % (40.0-70.0) % INR (0.87-1.13) VBG pH (7.320-7.420) Sodium (137-145) mmol/L Creatinine (0.6-1.2) mg/dL Glucose (65-100) mg/dL POC Glucose 278 H (70-105) mg/dL Alkaline Phosphatase (35-129) units/L Albumin (3.9-5) g/dL Urine WBC (Auto) 33.0 H (0.0-6.0) /HPF Assessment and Plan - Patient Problems (1) Hyperosmolar hyperglycemic state (HHS) Current Visit: Yes Status: Acute Plan to address problem: Insulin therapy, IV fluid resuscitation therapy, Accu-Chek, hypoglycemia protocol (2) Hypertensive urgency Current Visit: No Status: Acute Plan to address problem: Monitor blood pressure every shift, resume prehospital antihypertensive therapy, continue medical management. Hydralazine 10 mg IV every 6 hours as needed for systolic blood pressure greater than or equal 155 mmHg. (3) Peripheral vascular disease Current Visit: Yes Status: Acute Plan to address problem: Supportive care, vascular team consulted. No evidence of acute limb ischemia. (4) Nicotine dependence Current Visit: Yes Status: Acute Qualifiers: Nicotine product type: cigarettes Substance use status: in withdrawal Qualified Code(s): F17.213 - Nicotine dependence, cigarettes, with withdrawal Plan to address problem: Smoking cessation counseling, supportive care, behavior change counseling, +15 minutes. (5) DVT prophylaxis Current Visit: Yes Status: Acute Plan to address problem: SCD to bilateral lower extremities while in bed, prophylactic anticoagulation (6) Advance care planning Current Visit: Yes Status: Acute Plan to address problem: Disease education conducted, care plan discussed, diagnoses discussed, prognosis discussed, patient is full code. Patient acknowledges understanding agreement with care plan, +30 minutes. (7) Noncompliance with medication regimen Current Visit: Yes Status: Acute Plan to address problem: Patient counseled. Patient acknowledges understanding instructions. Patient states that she will attempt to be compliant with medication in the future. Patient requests cheaper insulin therapy. Due to difficulty with purchasing current regimen.
[2021-10-09] MEDS ORDERED: hydrALAZINE 20 MG/1 ML INJ IV PRN (17:23)
[2021-10-09] MEDS ORDERED: METOCLOPRAMIDE 10 MG TAB PO PRN (17:24)
[2021-10-09 18:35] LABS: Calcium 8.5 mg/dL (8.4-10.2)
[2021-10-09] MEDS: INSULIN LISPRO 100 UNIT/ML SUB-Q SCH (20:17)
[2021-10-10] MEDS: HEPARIN 5,000 UNIT/1 ML VIAL SUB-Q SCH ×3 (00:33→22:13)
[2021-10-10] MEDS: carvediloL 12.5 MG TAB PO SCH ×3 (00:34→22:12)
[2021-10-10] MEDS: INSULIN GLARGINE 100 UNITS/ML SUB-Q SCH ×2 (00:34→22:29)
[2021-10-10] MEDS: oxyCODONE /ACETAMINOPHEN 5-325MG TAB PO PRN ×2 (01:29→22:12)
--- NOTE | 2021-10-10 09:15 | Consultation ---
History of Present Illness Consult date: 10/10/21 Reason for consult: wound care - History of present illness History of present illness: 31-year-old female presented to the emergency room with chief complaint of wanting to get her leg looked at and to resume her diabetic medications of which she has been unable to afford. Upon work-up she was found to be in DKA. General surgery consulted to look at left foot wounds. Patient says wounds are chronic she denies any drainage and actually says that the pain she was having and that has improved compared to several days ago. 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 Patient had x-rays done of her left foot and ankle that showed no signs of osteo or gross infection. Past History Past Medical History: arthritis, diabetes, hypertension, PVD Past Surgical History: Other (Right BKA) Social history: single, smoking Medications and Allergies Allergies Allergy/AdvReac Type Severity Reaction Status Date / Time latex Allergy Swelling Verified 10/09/21 13:42 Home Medications Medication Instructions Recorded Confirmed Last Taken Type Insulin Glargine [Lantus VIAL] 8 units SUB-Q QHS 30 Days #3 ml 06/19/21 10/10/21 1 Day Ago Rx ~10/09/21 carvediloL [Coreg] 12.5 mg PO BID 30 Days #60 tablet 06/19/21 10/10/21 1 Day Ago Rx ~10/09/21 Metoclopramide [Reglan] 10 mg PO TID PRN #15 tab 07/09/21 10/10/21 1 Day Ago Rx ~10/09/21 Nitrofurantoin [place]/M-Cryst 100 mg PO Q12HR #14 capsule 07/09/21 10/10/21 1 Day Ago Rx [Macrobid CAP] ~10/09/21 Nitrofurantoin [place]/M-Cryst 100 mg PO Q12HR #14 capsule 08/12/21 10/10/21 1 Day Ago Rx [Macrobid CAP] ~10/09/21 Ondansetron [Zofran Odt] 4 mg PO Q8HR PRN #14 tab.rapdis 08/12/21 10/10/21 1 Day Ago Rx ~10/09/21 traMADoL [Ultram 50 MG tab] 50 mg PO Q4HR PRN #14 tablet 08/12/21 10/10/21 1 Day Ago Rx ~10/09/21 Active Meds: Active Medications Acetaminophen (Acetaminophen 325 Mg Tab) 650 mg PO Q4H PRN PRN Reason: Pain MILD(1-3)/Fever >100.5/[place] Carvedilol (Carvedilol 12.5 Mg Tab) 12.5 mg PO BID [facility] Last Admin: 10/10/21 00:34 Dose: 12.5 mg Dextrose (Dextrose 10% *Hypoglycemia) 0 ml IV PRN PRN PRN Reason: Hypoglycemia Heparin Sodium (Porcine) (Heparin 5,000 Unit/1 Ml Vial) 5,000 unit SUB-Q Q12HR [facility] Last Admin: 10/10/21 00:33 Dose: 5,000 unit Hydralazine HCl (Hydralazine 20 Mg/1 Ml Inj) 10 mg IV Q6HR PRN PRN Reason: Hypertension Hydromorphone HCl (Hydromorphone 1 Mg/1 Ml Inj) 0.5 mg IV Q12H PRN PRN Reason: Pain , Severe (7-10) Insulin Glargine (Insulin Glargine 100 Units/Ml) 8 units SUB-Q QHS [facility] Last Admin: 10/10/21 00:34 Dose: 8 units Insulin Human Lispro (Insulin Lispro 100 Unit/Ml) 0 unit SUB-Q [facility]; Protocol Lisinopril (Lisinopril 5 Mg Tab) 5 mg PO QDAY [facility] Metoclopramide HCl (Metoclopramide 10 Mg Tab) 10 mg PO TID PRN PRN Reason: Nausea Ondansetron HCl (Ondansetron 4 Mg/2 Ml Inj) 4 mg IV Q8H PRN PRN Reason: Nausea And Vomiting Oxycodone/Acetaminophen (Oxycodone /Acetaminophen 5-325mg Tab) 1 tab PO Q8H PRN PRN Reason: Pain, Moderate (4-6) Last Admin: 10/10/21 01:29 Dose: 1 tab Sodium Chloride (Sodium Chloride 0.9% 10 Ml Flush Syringe) 10 ml IV BID [facility] Last Admin: 10/10/21 00:36 Dose: 10 ml Sodium Chloride (Sodium Chloride 0.9% 10 Ml Flush Syringe) 10 ml IV PRN PRN PRN Reason: LINE FLUSH Review of Systems All systems: negative - Integumentary wounds, foot/leg ulcers Exam Vital Signs Temp Pulse Resp BP Pulse Ox 98.4 F 109 H 20 207/96 100 10/09/21 13:42 10/09/21 13:42 10/09/21 13:42 10/09/21 13:42 10/09/21 13:42 - General physical appearance Positive: well developed, no distress, no pain - Eyes Positive: PERRL. Negative: icteric - ENT Positive: no hearing loss - Respiratory Positive: normal expansion, normal respiratory effort - Cardiovascular Heart Sounds: Present: S1 & S2 - Extremities Extremity abnormal: other (Right well-healed BKA stump. Left foot with dry hyperpigmentation of the skin of the first and second toe on the medial aspects and slightly on the dorsal side. No erythema, no drainage, no tenderness to palpation. Left superficial healed lateral ankle wound no signs of acute infection.) Results - Labs 10/09/21 13:58 10/09/21 17:54 Abnormal lab results 10/09/21 10/09/21 10/09/21 Range/Units 13:42 13:58 13:58 Seg Neutrophils % 73.5 H (40.0-70.0) % INR (0.87-1.13) VBG pH (7.320-7.420) Sodium 134 L (137-145) mmol/L Chloride (98-107) mmol/L Carbon Dioxide (22-30) mmol/L Creatinine 1.6 H (0.6-1.2) mg/dL Glucose 512 H* (65-100) mg/dL POC Glucose 464 H (70-105) mg/dL Alkaline Phosphatase 149 H (35-129) units/L Albumin 3.8 L (3.9-5) g/dL Urine WBC (Auto) (0.0-6.0) /HPF 10/09/21 10/09/21 10/09/21 Range/Units 13:58 14:48 16:31 Seg Neutrophils % (40.0-70.0) % INR 0.86 L (0.87-1.13) VBG pH 7.271 L (7.320-7.420) Sodium (137-145) mmol/L Chloride (98-107) mmol/L Carbon Dioxide (22-30) mmol/L Creatinine (0.6-1.2) mg/dL Glucose (65-100) mg/dL POC Glucose 392 H (70-105) mg/dL Alkaline Phosphatase (35-129) units/L Albumin (3.9-5) g/dL Urine WBC (Auto) (0.0-6.0) /HPF 10/09/21 10/09/21 10/09/21 Range/Units 17:10 17:54 18:55 Seg Neutrophils % (40.0-70.0) % INR (0.87-1.13) VBG pH (7.320-7.420) Sodium (137-145) mmol/L Chloride 107.1 H (98-107) mmol/L Carbon Dioxide 18 L (22-30) mmol/L Creatinine 1.4 H (0.6-1.2) mg/dL Glucose 238 H (65-100) mg/dL POC Glucose 278 H 183 H (70-105) mg/dL Alkaline Phosphatase (35-129) units/L Albumin (3.9-5) g/dL Urine WBC (Auto) (0.0-6.0) /HPF 10/09/21 10/09/21 10/10/21 Range/Units 20:08 Unknown 00:18 Seg Neutrophils % (40.0-70.0) % INR (0.87-1.13) VBG pH (7.320-7.420) Sodium (137-145) mmol/L Chloride (98-107) mmol/L Carbon Dioxide (22-30) mmol/L Creatinine (0.6-1.2) mg/dL Glucose (65-100) mg/dL POC Glucose 192 H 160 H (70-105) mg/dL Alkaline Phosphatase (35-129) units/L Albumin (3.9-5) g/dL Urine WBC (Auto) 33.0 H (0.0-6.0) /HPF 10/10/21 Range/Units 08:24 Seg Neutrophils % (40.0-70.0) % INR (0.87-1.13) VBG pH (7.320-7.420) Sodium (137-145) mmol/L Chloride (98-107) mmol/L Carbon Dioxide (22-30) mmol/L Creatinine (0.6-1.2) mg/dL Glucose (65-100) mg/dL POC Glucose 225 H (70-105) mg/dL Alkaline Phosphatase (35-129) units/L Albumin (3.9-5) g/dL Urine WBC (Auto) (0.0-6.0) /HPF Diabetes panel 10/09/21 10/09/21 Range/Units 13:58 17:54 Sodium 134 L 139 (137-145) mmol/L Potassium 5.0 3.8 D (3.6-5.0) mmol/L Chloride 98.2 107.1 H (98-107) mmol/L Carbon Dioxide 23 18 L (22-30) mmol/L BUN 17 16 (7-17) mg/dL Creatinine 1.6 H 1.4 H (0.6-1.2) mg/dL Glucose 512 H* 238 H (65-100) mg/dL Calcium 9.2 8.5 (8.4-10.2) mg/dL AST 11 (5-40) units/L ALT 9 (7-56) units/L Alkaline Phosphatase 149 H (35-129) units/L Total Protein 7.0 (6.3-8.2) g/dL Albumin 3.8 L (3.9-5) g/dL Thyroid panel 10/09/21 Range/Units 14:48 TSH 0.795 (0.270-4.200) mlU/mL Calcium panel 10/09/21 10/09/21 Range/Units 13:58 17:54 Calcium 9.2 8.5 (8.4-10.2) mg/dL Albumin 3.8 L (3.9-5) g/dL Pituitary panel 10/09/21 10/09/21 10/09/21 Range/Units 13:58 14:48 17:54 Sodium 134 L 139 (137-145) mmol/L Potassium 5.0 3.8 D (3.6-5.0) mmol/L Chloride 98.2 107.1 H (98-107) mmol/L Carbon Dioxide 23 18 L (22-30) mmol/L BUN 17 16 (7-17) mg/dL Creatinine 1.6 H 1.4 H (0.6-1.2) mg/dL Glucose 512 H* 238 H (65-100) mg/dL Calcium 9.2 8.5 (8.4-10.2) mg/dL TSH 0.795 (0.270-4.200) mlU/mL Adrenal panel 10/09/21 10/09/21 Range/Units 13:58 17:54 Sodium 134 L 139 (137-145) mmol/L Potassium 5.0 3.8 D (3.6-5.0) mmol/L Chloride 98.2 107.1 H (98-107) mmol/L Carbon Dioxide 23 18 L (22-30) mmol/L BUN 17 16 (7-17) mg/dL Creatinine 1.6 H 1.4 H (0.6-1.2) mg/dL Glucose 512 H* 238 H (65-100) mg/dL Calcium 9.2 8.5 (8.4-10.2) mg/dL Total Bilirubin < 0.20 (0.1-1.2) mg/dL AST 11 (5-40) units/L ALT 9 (7-56) units/L Alkaline Phosphatase 149 H (35-129) units/L Total Protein 7.0 (6.3-8.2) g/dL Albumin 3.8 L (3.9-5) g/dL Assessment and Plan 31-year-old female with a history of wounds on her left foot. Wounds are chronically not healing but not acutely infected. No surgical intervention is indicated this time. Discussed with patient at length how she should try to get tight glucose control and continue with smoking cessation. 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
[2021-10-10] MEDS ORDERED: LISINOPRIL 5 MG TAB PO SCH (10:00)
[2021-10-10] MEDS: ONDANSETRON 4 MG/2 ML INJ IV PRN (10:22)
[2021-10-10] MEDS: INSULIN LISPRO 100 UNIT/ML SUB-Q SCH ×5 (10:29→22:14)
[2021-10-10] MEDS: LISINOPRIL 5 MG TAB PO SCH (12:15)
--- NOTE | 2021-10-10 13:25 | Consultation ---
History of Present Illness - Reason for Consult Consult date: 10/10/21 Diabetes with Peripheral Vascular Disease Requesting physician: RALPH ARNOLD - History of Present Illness The patient is a 31-year-old female with history of diabetes who was recently had difficulty obtaining medications secondary to insurance issues. She presented to the emergency department with a complaint of a left leg ulceration that has been slowly healing. She denies any fever, chills, or purulence noted from the wound. She states that the wound has been on her leg for several weeks and has been slowly healing. She states that there was initially pink granulation tissue however the wound has now scabbed over. She has a history of a right below-knee amputation approximately 4 years ago that was performed secondary to a diabetic foot ulcer. In addition to the ulceration the patient states she noticed some discoloration of the left first and second toes that she first noticed around the time of the ulceration. She denies any neuropathy of the left foot. She has no additional complaints at this time. I discussed the plan with the patient who is expressed understanding and agrees with the plan. Past History Past Medical History: arthritis, diabetes, hypertension, PVD Past Surgical History: Other (Right lower extremity angioplasty and stenting, right BKA) Social history: single, smoking Medications and Allergies Allergies Allergy/AdvReac Type Severity Reaction Status Date / Time latex Allergy Swelling Verified 10/09/21 13:42 Home Medications Medication Instructions Recorded Confirmed Last Taken Type Insulin Glargine [Lantus VIAL] 8 units SUB-Q QHS 30 Days #3 ml 06/19/21 10/10/21 1 Day Ago Rx ~10/09/21 carvediloL [Coreg] 12.5 mg PO BID 30 Days #60 tablet 06/19/21 10/10/21 1 Day Ago Rx ~10/09/21 Metoclopramide [Reglan] 10 mg PO TID PRN #15 tab 07/09/21 10/10/21 1 Day Ago Rx ~10/09/21 Nitrofurantoin [place]/M-Cryst 100 mg PO Q12HR #14 capsule 07/09/21 10/10/21 1 Day Ago Rx [Macrobid CAP] ~10/09/21 Nitrofurantoin [place]/M-Cryst 100 mg PO Q12HR #14 capsule 08/12/21 10/10/21 1 Day Ago Rx [Macrobid CAP] ~10/09/21 Ondansetron [Zofran Odt] 4 mg PO Q8HR PRN #14 tab.rapdis 08/12/21 10/10/21 1 Day Ago Rx ~10/09/21 traMADoL [Ultram 50 MG tab] 50 mg PO Q4HR PRN #14 tablet 08/12/21 10/10/21 1 Day Ago Rx ~10/09/21 Active Meds: Active Medications Acetaminophen (Acetaminophen 325 Mg Tab) 650 mg PO Q4H PRN PRN Reason: Pain MILD(1-3)/Fever >100.5/[place] Carvedilol (Carvedilol 12.5 Mg Tab) 12.5 mg PO BID [facility] Last Admin: 10/10/21 12:14 Dose: 12.5 mg Dextrose (Dextrose 10% *Hypoglycemia) 0 ml IV PRN PRN PRN Reason: Hypoglycemia Heparin Sodium (Porcine) (Heparin 5,000 Unit/1 Ml Vial) 5,000 unit SUB-Q Q12HR [facility] Last Admin: 10/10/21 10:35 Dose: 5,000 unit Hydralazine HCl (Hydralazine 20 Mg/1 Ml Inj) 10 mg IV Q6HR PRN PRN Reason: Hypertension Hydromorphone HCl (Hydromorphone 1 Mg/1 Ml Inj) 0.5 mg IV Q12H PRN PRN Reason: Pain , Severe (7-10) Insulin Glargine (Insulin [facility]arg[facility] 100 Units/Ml) [facility] Admin: 10/10/21 00:34 Dose: 8 units Insulin Human Lispro (Insulin Lispro 100 Unit/Ml) 0 unit SUB-Q [facility]; Protocol Last Admin: 10/10/21 12:36 Dose: 4 unit Lisinopril (Lisinopril 5 Mg Tab) 5 mg PO QDAY [facility] Last Admin: 10/10/21 12:15 Dose: 5 mg Metoclopramide HCl (Metoclopramide 10 Mg Tab) 10 mg PO TID PRN PRN Reason: Nausea Ondansetron HCl (Ondansetron 4 Mg/2 Ml Inj) 4 mg IV Q8H PRN PRN Reason: Nausea And Vomiting Last Admin: 10/10/21 10:22 Dose: 4 mg Oxycodone/Acetaminophen (Oxycodone /Acetaminophen 5-325mg Tab) 1 tab PO Q8H PRN PRN Reason: Pain, Moderate (4-6) Last Admin: 10/10/21 01:29 Dose: 1 tab Sodium Chloride (Sodium Chloride 0.9% 10 Ml Flush Syringe) 10 ml IV BID [facility] Last Admin: 10/10/21 12:16 Dose: 10 ml Sodium Chloride (Sodium Chloride 0.9% 10 Ml Flush Syringe) 10 ml IV PRN PRN PRN Reason: LINE FLUSH Review of Systems All systems: negative Exam - Constitutional Vitals: Temp Pulse Resp BP Pulse Ox 98.6 F 106 H 16 182/83 100 10/10/21 11:21 10/10/21 12:15 10/10/21 11:21 10/10/21 12:15 10/10/21 11:21 General appearance: Present: no acute distress - Respiratory Respiratory effort: normal - Cardiovascular Rhythm: regular - Extremities Extremities: normal temperature (Left foot is warm), abnormal (Superficial ulceration of the left lateral malleolus without signs of infection, ulcer is scabbed over) Extremity abnormal: black (Cyanotic changes to the left first and second toes), pulses diminished (Nonpalpable pedal pulses of the left foot), other (Right below-knee amputation site is well-healed) Results - Labs CBC & Chem 7: 10/09/21 13:58 10/09/21 17:54 Labs: Abnormal lab results 10/09/21 10/09/21 10/09/21 Range/Units 13:42 13:58 13:58 Seg Neutrophils % 73.5 H (40.0-70.0) % INR (0.87-1.13) VBG pH (7.320-7.420) Sodium 134 L (137-145) mmol/L Chloride (98-107) mmol/L Carbon Dioxide (22-30) mmol/L Creatinine 1.6 H (0.6-1.2) mg/dL Glucose 512 H* (65-100) mg/dL POC Glucose 464 H (70-105) mg/dL Alkaline Phosphatase 149 H (35-129) units/L Albumin 3.8 L (3.9-5) g/dL Urine WBC (Auto) (0.0-6.0) /HPF 10/09/21 10/09/21 10/09/21 Range/Units 13:58 14:48 16:31 Seg Neutrophils % (40.0-70.0) % INR 0.86 L (0.87-1.13) VBG pH 7.271 L (7.320-7.420) Sodium (137-145) mmol/L Chloride (98-107) mmol/L Carbon Dioxide (22-30) mmol/L Creatinine (0.6-1.2) mg/dL Glucose (65-100) mg/dL POC Glucose 392 H (70-105) mg/dL Alkaline Phosphatase (35-129) units/L Albumin (3.9-5) g/dL Urine WBC (Auto) (0.0-6.0) /HPF 10/09/21 10/09/21 10/09/21 Range/Units 17:10 17:54 18:55 Seg Neutrophils % (40.0-70.0) % INR (0.87-1.13) VBG pH (7.320-7.420) Sodium (137-145) mmol/L Chloride 107.1 H (98-107) mmol/L Carbon Dioxide 18 L (22-30) mmol/L Creatinine 1.4 H (0.6-1.2) mg/dL Glucose 238 H (65-100) mg/dL POC Glucose 278 H 183 H (70-105) mg/dL Alkaline Phosphatase (35-129) units/L Albumin (3.9-5) g/dL Urine WBC (Auto) (0.0-6.0) /HPF 10/09/21 10/09/21 10/10/21 Range/Units 20:08 Unknown 00:18 Seg Neutrophils % (40.0-70.0) % INR (0.87-1.13) VBG pH (7.320-7.420) Sodium (137-145) mmol/L Chloride (98-107) mmol/L Carbon Dioxide (22-30) mmol/L Creatinine (0.6-1.2) mg/dL Glucose (65-100) mg/dL POC Glucose 192 H 160 H (70-105) mg/dL Alkaline Phosphatase (35-129) units/L Albumin (3.9-5) g/dL Urine WBC (Auto) 33.0 H (0.0-6.0) /HPF 10/10/21 10/10/21 Range/Units 08:24 11:23 Seg Neutrophils % (40.0-70.0) % INR (0.87-1.13) VBG pH (7.320-7.420) Sodium (137-145) mmol/L Chloride (98-107) mmol/L Carbon Dioxide (22-30) mmol/L Creatinine (0.6-1.2) mg/dL Glucose (65-100) mg/dL POC Glucose 225 H 233 H (70-105) mg/dL Alkaline Phosphatase (35-129) units/L Albumin (3.9-5) g/dL Urine WBC (Auto) (0.0-6.0) /HPF Assessment and Plan The patient is a 31-year-old female with a history of diabetes and peripheral vascular disease who underwent a right below-knee amputation approximately 4 years ago secondary to a diabetic foot ulcer. She presented with complaints of a slow healing left leg ulcer. The patient also has cyanotic changes to her first and second toe that appear almost embolic however she has no complaints of pain at this time. Her ulceration is healing and does not require intervention at this time. It is concerning that she has a cyanotic changes to her first and second toes so I discussed the need for an arterial duplex of the left leg to evaluate her arterial flow. Depending on the findings of the duplex further intervention will be discussed after the testing.
--- NOTE | 2021-10-10 21:46 | Progress Note ---
Assessment and Plan -- Hyperosmolar hyperglycemic state (HHS) Continue insulin therapy, IV fluid resuscitation therapy, Accu-Chek, hypoglycemia protocol Blood glucose much improved -- Hypertensive urgency Monitor blood pressure every shift, continue BP medications and adjust to keep SBP less than 140. Hydralazine 10 mg IV every 6 hours as needed for systolic blood pressure greater than or equal 155 mmHg. -- Peripheral vascular disease with left foot wound vascular team consulted. Plan for arterial duplex tomorrow Continue wound care --Nicotine dependence Smoking cessation counseling, supportive care, behavior change counseling, +15 minutes. -- DVT prophylaxis SCD to bilateral lower extremities while in bed, prophylactic anticoagulation -- Advance care planning Disease education conducted, care plan discussed, diagnoses discussed, prognosis discussed, patient is full code. Patient acknowledges understanding agreement with care plan, +30 minutes. --Noncompliance with medication regimen Patient counseled. Patient acknowledges understanding instructions. Patient states that she will attempt to be compliant with medication in the future. Patient requests cheaper insulin therapy. Due to difficulty with purchasing current regimen. Daily clinical course: 10/10/21: No need for any surgical intervention, plan for arterial duplex by vascular Subjective Date of service: 10/10/21 Interval history: Patient seen and examined. Medical records and medication list reviewed. No acute event overnight noted by the RN. Patient denies any chest pain or difficulty breathing. Patient is tolerating diet. Blood glucose much improved today Discussed plan of care at bedside with patient. Objective - Exam Narrative Exam: - General physical appearance Positive: well developed, no distress, no pain - Eyes Positive: PERRL. Negative: icteric - ENT Positive: no hearing loss - Respiratory Positive: normal expansion, normal respiratory effort - Cardiovascular Heart Sounds: Present: S1 & S2 - Extremities Extremity abnormal: other (Right well-healed BKA stump. Left foot with dry hyperpigmentation of the skin of the first and second toe on the medial aspects and slightly on the dorsal side. No erythema, no drainage, no tenderness to palpation. Left superficial healed lateral ankle wound no signs of acute infection.) - Constitutional Vitals: Vital Signs - 12hr 10/10/21 10/10/21 10/10/21 11:21 12:14 12:15 Temperature 98.6 F Pulse Rate 106 H 106 H 106 H Respiratory 16 Rate Blood Pressure 182/83 182/83 182/83 O2 Sat by Pulse 100 Oximetry 10/10/21 10/10/21 10/10/21 16:00 16:19 19:37 Temperature 98.7 F 98.8 F Pulse Rate 97 H 95 H Respiratory 18 16 Rate Blood Pressure 174/87 137/81 O2 Sat by Pulse 98 100 100 Oximetry - Gastrointestinal General gastrointestinal: Present: soft, non-tender, non-distended - Labs CBC & Chem 7: 10/09/21 13:58 10/09/21 17:54 Labs: Abnormal lab results 10/10/21 10/10/21 10/10/21 Range/Units 00:18 08:24 11:23 POC Glucose 160 H 225 H 233 H (70-105) mg/dL 10/10/21 10/10/21 Range/Units 16:43 21:03 POC Glucose 169 H 188 H (70-105) mg/dL HEART Score - HEART Score Troponin: Troponin T < 0.010 ng/mL (0.00-0.029) 10/09/21 14:48
[2021-10-11] MEDS: INSULIN LISPRO 100 UNIT/ML SUB-Q SCH ×4 (08:11→22:47)
[2021-10-11] MEDS: LISINOPRIL 5 MG TAB PO SCH (10:40)
[2021-10-11] MEDS: oxyCODONE /ACETAMINOPHEN 5-325MG TAB PO PRN (10:42)
[2021-10-11] MEDS: HEPARIN 5,000 UNIT/1 ML VIAL SUB-Q SCH ×2 (10:43→22:46)
[2021-10-11] MEDS: carvediloL 12.5 MG TAB PO SCH ×2 (10:43→22:47)
--- NOTE | 2021-10-11 16:44 | Progress Note ---
Assessment and Plan -- Hyperosmolar hyperglycemic state (HHS) Continue insulin therapy, IV fluid resuscitation therapy, Accu-Chek, hypoglycemia protocol Blood glucose much improved -- Hypertensive urgency Monitor blood pressure every shift, continue BP medications and adjust to keep SBP less than 140. Hydralazine 10 mg IV every 6 hours as needed for systolic blood pressure greater than or equal 155 mmHg. -- Peripheral vascular disease with slow healing left foot ulcer M cyanosis of first and second toe vascular team consulted. Plan for arterial duplex today, follow vascular recommendation Continue wound care --Nicotine dependence Smoking cessation counseling, supportive care, behavior change counseling, +15 minutes. -- DVT prophylaxis SCD to bilateral lower extremities while in bed, prophylactic anticoagulation -- Advance care planning Disease education conducted, care plan discussed, diagnoses discussed, prognosis discussed, patient is full code. Patient acknowledges understanding agreement with care plan, +30 minutes. --Noncompliance with medication regimen Patient counseled. Patient acknowledges understanding instructions. Patient states that she will attempt to be compliant with medication in the future. Patient requests cheaper insulin therapy. Due to difficulty with purchasing current regimen. Daily clinical course: 10/10/21: No need for any surgical intervention by GS, plan for arterial duplex by vascular 10/11/21: She presented with complaints of a slow healing left leg ulcer. The pat ient also has cyanotic changes to her first and second toe. Per vascular need for an arterial duplex of the left leg to evaluate her arterial flow. Depending on the findings of the duplex further intervention will be discussed after the testing. s/p arterial duplex of LE today, Suspect thrombotic left SFA lesion with subsequent distal embolization. Plan for revascularization tomorrow. NPO after MN except sips with meds. Subjective Date of service: 10/11/21 Interval history: Patient seen and examined. Medical records and medication list reviewed. No acute event overnight noted by the RN. Patient denies any chest pain or difficulty breathing. Patient is tolerating diet. Blood glucose much stable Discussed plan of care at bedside with patient. Objective - Exam Narrative Exam: - General physical appearance Positive: well developed, no distress, no pain - Eyes Positive: PERRL. Negative: icteric - ENT Positive: no hearing loss - Respiratory Positive: normal expansion, normal respiratory effort - Cardiovascular Heart Sounds: Present: S1 & S2 - Extremities Extremity abnormal: other (Right well-healed BKA stump. Left foot with dry hyperpigmentation of the skin of the first and second toe on the medial aspects and slightly on the dorsal side. No erythema, no drainage, no tenderness to palpation. Left superficial healed lateral ankle wound no signs of acute infection.) - Constitutional Vitals: Vital Signs - 12hr 10/11/21 10/11/21 10/11/21 07:46 10:42 13:06 Temperature 98.3 F Pulse Rate 102 H Respiratory 18 20 Rate Blood Pressure 132/65 O2 Sat by Pulse 100 97 Oximetry - Labs CBC & Chem 7: 10/09/21 13:58 10/09/21 17:54 Labs: Abnormal lab results 10/10/21 10/10/21 10/11/21 Range/Units 16:43 21:03 07:45 POC Glucose 169 H 188 H 160 H (70-105) mg/dL 10/11/21 Range/Units 11:45 POC Glucose 236 H (70-105) mg/dL HEART Score - HEART Score Troponin: Troponin T < 0.010 ng/mL (0.00-0.029) 10/09/21 14:48
--- NOTE | 2021-10-11 17:31 | Progress Note ---
Assessment and Plan 31 year old with history of HTN, DM, and PVD with right BKA who now has left 1st and 2nd digit ischemic changes and left mid SFA occlusion. Suspect thrombotic left SFA lesion with subsequent distal embolization. Plan for revascularization tomorrow. R/B/A discussed. Agree with procedure. NPO after MN except sips with meds. Subjective Date of service: 10/11/21 Principal diagnosis: PVD with gangrene Interval history: Nonpalpable left pedal pulses. Left 1st and 2nd ischemic changes with hardened tissue/gangrene. Right BKA Objective - Constitutional Vitals: Vital Signs - 12hr 10/11/21 10/11/21 10/11/21 07:46 10:42 13:06 Temperature 98.3 F Pulse Rate 102 H Respiratory 18 20 Rate Blood Pressure 132/65 O2 Sat by Pulse 100 97 Oximetry General appearance: Present: no acute distress - EENT Eyes: EOM intact ENT: hearing intact - Respiratory Respiratory effort: normal Extremities: normal temperature, normal color, abnormal (Left nonpalpable pedal pulses. Left 1st and 2nd digit ischemic changes. Right BKA.) - Gastrointestinal General gastrointestinal: Present: soft, non-tender - Psychiatric Psychiatric: appropriate mood/affect, cooperative - Labs CBC & Chem 7: 10/09/21 13:58 10/09/21 17:54 Labs: Abnormal lab results 10/10/21 10/11/21 10/11/21 Range/Units 21:03 07:45 11:45 POC Glucose 188 H 160 H 236 H (70-105) mg/dL 10/11/21 Range/Units 16:34 POC Glucose 133 H (70-105) mg/dL Medications & Allergies - Medications Allergies/Adverse Reactions: Allergies latex Allergy (Verified 10/09/21 13:42) Swelling Home Medications: Home Medications Medication Instructions Recorded Confirmed Last Taken Type Insulin Glargine [Lantus VIAL] 8 units SUB-Q QHS 30 Days #3 ml 06/19/21 10/10/21 1 Day Ago Rx ~10/09/21 carvediloL [Coreg] 12.5 mg PO BID 30 Days #60 tablet 06/19/21 10/10/21 1 Day Ago Rx ~10/09/21 Metoclopramide [Reglan] 10 mg PO TID PRN #15 tab 07/09/21 10/10/21 1 Day Ago Rx ~10/09/21 Nitrofurantoin Gove/M-Cryst 100 mg PO Q12HR #14 capsule 07/09/21 10/10/21 1 Day Ago Rx [Macrobid CAP] ~10/09/21 Nitrofurantoin Gove/M-Cryst 100 mg PO Q12HR #14 capsule 08/12/21 10/10/21 1 Day Ago Rx [Macrobid CAP] ~10/09/21 Ondansetron [Zofran Odt] 4 mg PO Q8HR PRN #14 tab.rapdis 08/12/21 10/10/21 1 Day Ago Rx ~10/09/21 traMADoL [Ultram 50 MG tab] 50 mg PO Q4HR PRN #14 tablet 08/12/21 10/10/21 1 Day Ago Rx ~10/09/21 Active Medications: Generic Name Dose Route Start Last Admin Trade Name Freq PRN Reason Stop Dose Admin Acetaminophen 650 mg 10/09/21 17:16 Acetaminophen 325 Mg Tab PO Q4H PRN Pain MILD(1-3)/Fever >100.5/FULTON Carvedilol 12.5 mg 10/09/21 22:00 10/11/21 10:43 Carvedilol 12.5 Mg Tab PO 12.5 mg BID CHUCK Administration Dextrose 0 ml 10/09/21 16:43 Dextrose 10% *Hypoglycemia IV PRN PRN Hypoglycemia Heparin Sodium (Porcine) 5,000 unit 10/09/21 22:00 10/11/21 10:43 Heparin 5,000 Unit/1 Ml Vial SUB-Q 5,000 unit Q12HR CHUCK Administration Hydralazine HCl 10 mg 10/09/21 17:23 Hydralazine 20 Mg/1 Ml Inj IV Q6HR PRN Hypertension Hydromorphone HCl 0.5 mg 10/09/21 17:16 Hydromorphone 1 Mg/1 Ml Inj IV Q12H PRN Pain , Severe (7-10) Insulin Glargine 8 units 10/09/21 22:00 10/10/21 22:29 Insulin Glargine 100 Units/Ml SUB-Q 8 units QHS CHUCK Administration Insulin Human Lispro 0 unit 10/10/21 07:30 10/11/21 13:12 Insulin Lispro 100 Unit/Ml SUB-Q 6 unit ACHS CHUCK Administration Protocol Lisinopril 5 mg 10/09/21 17:23 10/11/21 10:40 Lisinopril 5 Mg Tab PO 5 mg QDAY CHUCK Administration Metoclopramide HCl 10 mg 10/09/21 17:24 Metoclopramide 10 Mg Tab PO TID PRN Nausea Ondansetron HCl 4 mg 10/09/21 17:16 10/10/21 10:22 Ondansetron 4 Mg/2 Ml Inj IV 4 mg Q8H PRN Administration Nausea And Vomiting Oxycodone/Acetaminophen 1 tab 10/09/21 17:16 10/11/21 10:42 Oxycodone /Acetaminophen 5-325mg Tab PO 1 tab Q8H PRN Administration Pain, Moderate (4-6) Sodium Chloride 10 ml 10/09/21 22:00 10/11/21 13:15 Sodium Chloride 0.9% 10 Ml Flush Syringe IV 10 ml BID CHUCK Administration Sodium Chloride 10 ml 10/09/21 17:16 Sodium Chloride 0.9% 10 Ml Flush Syringe IV PRN PRN LINE FLUSH HEART Score - HEART Score Troponin: Troponin T < 0.010 ng/mL (0.00-0.029) 10/09/21 14:48
--- NOTE | 2021-10-11 18:03 | Vascular Lab Report ---
DUPLEX DOPPLER LOWER EXTREMITY ARTERIAL, LEFT with NACHO INDICATION / CLINICAL INFORMATION: Left lower extremity peripheral vascular disease. TECHNIQUE: Arterial duplex examination of both lower extremities performed using B-mode, color flow a nd spectral Doppler assessment. FINDINGS: LEFT: - Atherosclerotic Plaque: Mild atherosclerotic plaque throughout the left lower extremity. Occlusive thrombus in the left mid superficial femoral artery. - Elevated Velocity (>200 cm/s): Distal iliac measures 208 cm/s. Common femoral artery measures 257 c m/s. - Abnormal Waveform: Biphasic in the left upper leg. Monophasic in the left lower leg. ADDITIONAL FINDINGS: None. Left NACHO: 0.56 IMPRESSION: 1. Occlusive thrombus in the left mid superficial femoral artery. 2. Elevated velocities in the distal left iliac and common femoral artery suggesting more proximal st enosis. 3. Low ankle-brachial index corresponding to moderate to severe peripheral artery disease. Ankle-Brachial Index (NACHO): - Calcified arteries > 1.4 - Normal = 0.9-1.4 - Mild PAD = 0.7-0.89 - Moderate PAD = 0.51-0.69 - Severe PAD < 0.5 Doppler Waveform: - Triphasic is normal. - Biphasic is abnormal if clear transition from triphasic signal along vascular tree. - Monophasic is abnormal. Signer Name: Feroz Claire MD Signed: 10/11/2021 5:59 PM Workstation Name: [id number]
[2021-10-11] MEDS: INSULIN GLARGINE 100 UNITS/ML SUB-Q SCH (22:46)
[2021-10-12] MEDS: oxyCODONE /ACETAMINOPHEN 5-325MG TAB PO PRN ×2 (01:41→21:26)
[2021-10-12 08:07] LABS: BUN/Creatinine Ratio 9; Blood Urea Nitrogen 11 mg/dL (7-17); Calcium 8.4 mg/dL (8.4-10.2); Hemolysis Index 13
--- NOTE | 2021-10-12 08:24 | Progress Note ---
Assessment and Plan Assessment and plan: Left lower extremity critical limb ischemia; Scheduled for revascularization procedure today per vascular -- Peripheral vascular disease: with slow healing left foot ulcer M cyanosis of first and second toe vascular team evaluated, plan for arterial duplex today, follow vascular recommendation -- Hyperosmolar hyperglycemic state (HHS): Accu-Chek, sliding scale coverage , long-acting insulin therapy, IV fluid and supportive care Diabetic education, diabetic nutrition education prior to discharge Home health nurse for disease monitoring at discharge -- Hypertensive urgency: Present on admission Blood pressures well controlled today, continue current antihypertensives And as needed medications --Nicotine dependence: Smoking cessation counseling, nicotine patch as needed supportive care, behavior change counseling, +15 minutes. --DVT prophylaxis: SCD to bilateral lower extremities while in bed, Subcu heparin --Advance care planning: Disease education conducted, care plan discussed, diagnoses discussed, prognosis discussed, patient is full code. Patient acknowledges understanding agreement with care plan, +30 minutes. --Medical noncompliance : Patient counseled. Patient acknowledges understanding instructions. Patient states that she will attempt to be compliant with medication in the future. Patient requests cheaper insulin therapy. Due to difficulty with purchasing current regimen. Follow vascular procedures and vascular recommendations We will closely monitor the patient and adjust the management as needed . Daily clinical course: 10/10/21: No need for any surgical intervention by GS, plan for arterial duplex by vascular 10/11/21: She presented with complaints of a slow healing left leg ulcer. The patient also has cyanotic changes to her first and second toe. Per vascular need for an arterial duplex of the left leg to evaluate her arterial flow. Depending on the findings of the duplex further intervention will be discussed after the testing. s/p arterial duplex of LE today, Suspect thrombotic left SFA lesion with subsequent distal embolization. Plan for revascularization tomorrow. NPO after MN except sips with meds. 10/12/21: Follow revascularization vascular procedures and vascular recommendations History Interval history: I have seen and examined the patient at the bedside Patient's chart and medications reviewed Patient is scheduled for angiography and vascular procedure today Patient has no new complaints Hospitalist Physical - Constitutional Vitals: Temp Pulse Resp BP Pulse Ox 98.0 F 94 H 14 133/78 100 10/12/21 04:24 10/12/21 04:24 10/12/21 04:24 10/12/21 04:24 10/12/21 04:24 General appearance: Present: no acute distress, well-nourished - EENT Eyes: Present: PERRL, EOM intact - Neck Neck: Present: supple, normal ROM - Respiratory Respiratory effort: normal Respiratory: bilateral: diminished, negative: rales, rhonchi, wheezing - Cardiovascular Rhythm: regular Heart Sounds: Present: S1 & S2 - Extremities Extremities: no ischemia, No edema, abnormal (Left leg in dressing) - Abdominal General gastrointestinal: soft, non-tender, non-distended, normal bowel sounds - Integumentary Integumentary: Present: clear, warm - Psychiatric Psychiatric: appropriate mood/affect, cooperative - Neurologic Neurologic: moves all extremities HEART Score - HEART Score Troponin: Troponin T < 0.010 ng/mL (0.00-0.029) 10/09/21 14:48 Results - Labs CBC & Chem 7: 10/09/21 13:58 10/12/21 06:41 Labs: Laboratory Last Values WBC 8.1 K/mm3 (4.5-11.0) 10/09/21 13:58 RBC 3.81 M/mm3 (3.65-5.03) 10/09/21 13:58 Hgb 11.0 gm/dl (10.1-14.3) 10/09/21 13:58 Hct 34.8 % (30.3-42.9) 10/09/21 13:58 MCV 91 fl (79-97) 10/09/21 13:58 MCH 29 pg (28-32) 10/09/21 13:58 MCHC 32 % (30-34) 10/09/21 13:58 RDW 13.9 % (13.2-15.2) 10/09/21 13:58 Plt Count 328 K/mm3 (140-440) 10/09/21 13:58 Lymph % (Auto) 18.0 % (13.4-35.0) 10/09/21 13:58 [place] % (Auto) 4.9 % (0.0-7.3) 10/09/21 13:58 Eos % (Auto) 2.6 % (0.0-4.3) 10/09/21 13:58 Baso % (Auto) 1.0 % (0.0-1.8) 10/09/21 13:58 Lymph # (Auto) 1.5 K/mm3 (1.2-5.4) 10/09/21 13:58 [place] # (Auto) 0.4 K/mm3 (0.0-0.8) 10/09/21 13:58 Eos # (Auto) 0.2 K/mm3 (0.0-0.4) 10/09/21 13:58 Baso # (Auto) 0.1 K/mm3 (0.0-0.1) 10/09/21 13:58 Seg Neutrophils % 73.5 % (40.0-70.0) H 10/09/21 13:58 Seg Neutrophils # 6.0 K/mm3 (1.8-7.7) 10/09/21 13:58 PT 12.7 Sec. (12.2-14.9) 10/09/21 14:48 INR 0.86 (0.87-1.13) L 10/09/21 14:48 APTT 29.7 Sec. (24.2-36.6) 10/09/21 14:48 VBG pH 7.271 (7.320-7.420) L 10/09/21 13:58 Sodium 138 mmol/L (137-145) 10/12/21 06:41 Potassium 4.2 mmol/L (3.6-5.0) 10/12/21 06:41 Chloride 103.1 mmol/L (98-107) 10/12/21 06:41 Carbon Dioxide 21 mmol/L (22-30) L 10/12/21 06:41 Anion Gap 18 mmol/L 10/12/21 06:41 BUN 11 mg/dL (7-17) 10/12/21 06:41 Creatinine 1.2 mg/dL (0.6-1.2) 10/12/21 06:41 Estimated GFR > 60 ml/min 10/12/21 06:41 BUN/Creatinine Ratio 9 % 10/12/21 06:41 Glucose 159 mg/dL (65-100) H 10/12/21 06:41 POC Glucose 163 mg/dL (70-105) H 10/12/21 08:13 Calcium 8.4 mg/dL (8.4-10.2) 10/12/21 06:41 Magnesium 1.90 mg/dL (1.7-2.3) 10/09/21 14:48 Total Bilirubin < 0.20 mg/dL (0.1-1.2) 10/09/21 13:58 AST 11 units/L (5-40) 10/09/21 13:58 ALT 9 units/L (7-56) 10/09/21 13:58 Alkaline Phosphatase 149 units/L (35-129) H 10/09/21 13:58 Troponin T < 0.010 ng/mL (0.00-0.029) 10/09/21 14:48 NT-Pro-B Natriuret Pep 408.9 pg/mL (0-450) 10/09/21 14:48 Total Protein 7.0 g/dL (6.3-8.2) 10/09/21 13:58 Albumin 3.8 g/dL (3.9-5) L 10/09/21 13:58 Albumin/Globulin Ratio 1.2 % 10/09/21 13:58 Lipase 51 units/L (13-60) 10/09/21 14:48 TSH 0.795 mlU/mL (0.270-4.200) 10/09/21 14:48 HCG, Qual Negative (Negative) 10/09/21 13:58 Urine Color Yellow (Yellow) 10/09/21 Unknown Urine Turbidity Clear (Clear) 10/09/21 Unknown Urine pH 7.0 (5.0-7.0) 10/09/21 Unknown Ur Specific [place] 1.013 (1.003-1.030) 10/09/21 Unknown Urine Protein 30 mg/dl mg/dL (Negative) 10/09/21 Unknown Urine Glucose (UA) >=500 mg/dL (Negative) 10/09/21 Unknown Urine Ketones Neg mg/dL (Negative) 10/09/21 Unknown Urine Blood Sm (Negative) 10/09/21 Unknown Urine Nitrite Neg (Negative) 10/09/21 Unknown Urine Bilirubin Neg (Negative) 10/09/21 Unknown Urine Urobilinogen < 2.0 mg/dL (<2.0) 10/09/21 Unknown Ur Leukocyte Esterase Sm (Negative) 10/09/21 Unknown Urine WBC (Auto) 33.0 /HPF (0.0-6.0) H 10/09/21 Unknown Urine RBC (Auto) 2.0 /HPF (0.0-6.0) 10/09/21 Unknown U Epithel Cells (Auto) 3.0 /HPF (0-13.0) 10/09/21 Unknown Urine Bacteria (Auto) 1+ /HPF (Negative) 10/09/21 Unknown Urine Mucus Few /HPF 10/09/21 Unknown Urine Opiates Screen Negative 10/09/21 Unknown Urine Methadone Screen Negative 10/09/21 Unknown Ur Barbiturates Screen Negative 10/09/21 Unknown Ur Phencyclidine Scrn Negative 10/09/21 Unknown Ur Amphetamines Screen Negative 10/09/21 Unknown U Benzodiazepines Scrn Negative 10/09/21 Unknown Urine Cocaine Screen Negative 10/09/21 Unknown U Marijuana (THC) Screen Positive 10/09/21 Unknown Drugs of Abuse Note Disclamer 10/09/21 Unknown Plasma/Serum Alcohol < 0.01 % (0-0.07) 10/09/21 14:48 Microbiology: Microbiology 10/09/21 14:48 Peripheral/Venous Blood Culture - Preliminary NO GROWTH AFTER 48 HOURS 10/09/21 14:48 Peripheral/Venous Blood Culture - Preliminary NO GROWTH AFTER 48 HOURS [place]/IV: Voiding Method Toilet Active Medications - Current Medications Current Medications: Generic Name Dose Route Start Last Admin Trade Name Freq PRN Reason Stop Dose Admin Acetaminophen 650 mg 10/09/21 17:16 Acetaminophen 325 Mg Tab PO Q4H PRN Pain MILD(1-3)/Fever >100.5/[place] Carvedilol 12.5 mg 10/09/21 22:00 10/11/21 22:47 Carvedilol 12.5 Mg Tab PO 12.5 mg BID CHUCK Administration Dextrose 0 ml 10/09/21 16:43 Dextrose 10% *Hypoglycemia IV PRN PRN Hypoglycemia Heparin Sodium (Porcine) 5,000 unit 10/09/21 22:00 10/11/21 22:46 Heparin 5,000 Unit/1 Ml Vial SUB-Q 5,000 unit Q12HR CHUCK Administration Hydralazine HCl 10 mg 10/09/21 17:23 Hydralazine 20 Mg/1 Ml Inj IV Q6HR PRN Hypertension Hydromorphone HCl 0.5 mg 10/09/21 17:16 Hydromorphone 1 Mg/1 Ml Inj IV Q12H PRN Pain , Severe (7-10) Insulin Glargine 8 units 10/09/21 22:00 10/11/21 22:46 Insulin Glargine 100 Units/Ml SUB-Q 8 units QHS CHUCK Administration Insulin Human Lispro 0 unit 10/10/21 07:30 10/11/21 22:47 Insulin Lispro 100 Unit/Ml SUB-Q 3 unit ACHS CHUCK Administration Protocol Lisinopril 5 mg 10/09/21 17:23 10/11/21 10:40 Lisinopril 5 Mg Tab PO 5 mg QDAY CHUCK Administration Metoclopramide HCl 10 mg 10/09/21 17:24 Metoclopramide 10 Mg Tab PO TID PRN Nausea Ondansetron HCl 4 mg 10/09/21 17:16 10/10/21 10:22 Ondansetron 4 Mg/2 Ml Inj IV 4 mg Q8H PRN Administration Nausea And Vomiting Oxycodone/Acetaminophen 1 tab 10/09/21 17:16 10/12/21 01:41 Oxycodone /Acetaminophen 5-325mg Tab PO 1 tab Q8H PRN Administration Pain, Moderate (4-6) Sodium Chloride 10 ml 10/09/21 22:00 10/11/21 22:53 Sodium Chloride 0.9% 10 Ml Flush Syringe IV 10 ml BID CHUCK Administration Sodium Chloride 10 ml 10/09/21 17:16 Sodium Chloride 0.9% 10 Ml Flush Syringe IV PRN PRN LINE FLUSH Nutrition/Malnutrition Assess - Dietary Evaluation Nutrition/Malnutrition Findings: Nutrition Notes Start: 10/10/21 14:39 Freq: Status: Active Protocol: Document 10/10/21 14:40 MERCED (Rec: 10/10/21 14:49 MERCED [email or web address]) Nutrition Notes Need for Assessment generated from: MD Order,Education Initial or Follow up Brief Note Current Diagnosis Diabetes,Hypertension Other Pertinent Diagnosis Chronic L-Foot Ulcer, PVD s/p R-BKA, Asthma. Current Diet Cardiac/Consistent Carbohydrates Diet (since D ). Height 5 ft 4 in Weight 72.7 kg [place] Body Weight (kg) 54.54 BMI 27.5 Intake Prior to Admission Good Weight change and time frame Pt denies having loss body weight recently. Weight Status Overweight Subjective/Other Information RD consult for Nutrition Education. No reports available on Pt's PO intake of meals at the time . Pt still on ED, not a candidate for Nutrition Education at the time, will assess feasibility on F/U. Percent of energy/protein needs met: Prescribed Cardiac/Consistent Carbohydrates Diet provides for energy/protein needs (1, 977 Kcal/86 g) during LOS. Nutrition Intervention Follow-Up By: 10/15/21 Additional Comments Nutrition education will be provided on F/U, if feasible. Continue monitoring food tolerance, %PO intake of meals , and BM.
[2021-10-12] MEDS ORDERED: HEPARIN/NS 5000 UNIT/500ML 1,000 ML IR ONE (08:30)
[2021-10-12] MEDS ORDERED: SODIUM CHLORIDE 0.9% 500 ML 500 ML ONE ×2 (08:31→14:57)
[2021-10-12] MEDS: LISINOPRIL 5 MG TAB PO SCH (10:00)
[2021-10-12] MEDS: INSULIN LISPRO 100 UNIT/ML SUB-Q SCH ×3 (11:06→21:17)
[2021-10-12] MEDS ORDERED: hydrALAZINE 20 MG/1 ML INJ ONE (15:07)
[2021-10-12] MEDS: LIDOCAINE (2%) 20 MG/1 ML VIAL 20 ML MDV INFILTRATI ONE ×2 (15:15→15:29)
[2021-10-12] MEDS: MIDAZOLAM 2 MG/2 ML INJ ONE ×6 (15:19→18:01)
[2021-10-12] MEDS ORDERED: ceFAZolin/Water 2 GM/20 ML 2 GM/20 ML SYRINGE IV ONE (15:20)
[2021-10-12] MEDS: fentaNYL 100 MCG/2 ML INJ ONE ×5 (15:20→18:01)
[2021-10-12] MEDS: HEPARIN 10,000 UNITS/10 ML VIAL ONE ×3 (15:40→17:30)
[2021-10-12] MEDS ORDERED: NITROGLYCERIN DRIP 50 MG/250 ML BOTTLE ONE (15:46)
[2021-10-12] MEDS ORDERED: fentaNYL 100 MCG/2 ML INJ ONE ×2 (16:23→17:22)
[2021-10-12] MEDS ORDERED: MIDAZOLAM 2 MG/2 ML INJ ONE (17:21)
[2021-10-12] MEDS ORDERED: SODIUM CHLORIDE 0.9% 250ML 250 ML ONE ×2 (17:22→17:45)
[2021-10-12] MEDS ORDERED: HEPARIN/NS 5000 UNIT/500ML 500 ML IR ONE (17:25)
[2021-10-12] MEDS ORDERED: BIVALIRUDIN 250 MG INJ IV ONE (17:44)
[2021-10-12] MEDS ORDERED: SODIUM CHLORIDE 0.9% 50 ML ONE (17:46)
[2021-10-12] MEDS ORDERED: CLOPIDOGREL 300 MG TAB ONE (18:16)
[2021-10-12] MEDS ORDERED: APIXABAN 5 MG TAB ONE (18:29)
--- NOTE | 2021-10-12 18:39 | Post Operative Note ---
Date of procedure: 10/12/21 Pre-op diagnosis: Left lower extremity critical limb ischemia Post-op diagnosis: same Procedure: 1. Ultrasound-guided access of the right common femoral artery. 2. Angiography of the right lower extremity. 3. Selection of the abdominal aorta with angiography. 4. Selection of the left external iliac artery, superficial femoral artery, and popliteal artery with angiography of the left lower extremity. 5. Fluoroscopic guided placement of a 5 mm spider embolic protection device in the left popliteal artery. 6. Atherectomy of the left superficial femoral artery with a [email or web address] M device 7. Angioplasty of the left popliteal artery and superficial femoral artery with a 4 mm x 60 mm angioplasty balloon, 4 mm x 220 mm angioplasty balloon, 4 mm x 150 mm iNPACT balloon, 5 mm x 150 mm iNPACT balloon x 2, 5 mm x 80 mm iNPACT balloon 7. Fluoroscopic guided placement of 5 iNTACT short tacts in the left superficial femoral artery with postdilatation with a 5 mm x 220 mm angioplasty balloon 8. Fluoroscopic guided removal of the spider embolic protection device. 9. Thrombectomy of the left superficial femoral artery and popliteal artery with a CAT 6 thrombectomy device 10. Fluoroscopic guided placement of a new 5 mm spider embolic protection dev ice in the left popliteal artery 11. Stenting of the left distal superficial femoral artery with a 6 mm x 150 mm self-expanding stent, stenting of the left mid superficial femoral artery with a 6 mm x 20 mm self-expanding stent, and stenting of the left proximal superficial femoral artery with a 6 mm x 40 mm self-expanding stent. 12. Postdilatation with a 5 mm x 150 mm angioplasty balloon and 5 mm x 40 mm angioplasty balloon. 13. Fluoroscopic guided removal of the spider embolic protection device 14. Closure of the right common femoral artery with a 6 [place] Pro style Anesthesia: local (With conscious sedation) Surgeon: TEETEE ABRAHAM Estimated blood loss: other (200 mL from thrombectomy device) Condition: stable Disposition: floor
--- NOTE | 2021-10-12 18:40 | Event Note ---
Date: 10/12/21 Successful revascularization of the left lower extremity complicated by in situ thrombosis of the left superficial femoral artery with high concern for hypercoagulable condition. This was successfully rescued with thrombectomy and stenting. Started patient on cilostazol, Plavix, and Eliquis. Started patient on pantoprazole for GI prophylaxis. Sent off labs for heparin-induced thrombocytopenia. Suspect hypercoagulable nature is more likely due to underlying hypercoagulable nature.
[2021-10-12] MEDS: carvediloL 12.5 MG TAB PO SCH (21:18)
[2021-10-12] MEDS: INSULIN GLARGINE 100 UNITS/ML SUB-Q SCH (21:18)
[2021-10-12] MEDS: CILOSTAZOL 100 MG TAB PO SCH (21:19)
[2021-10-12] MEDS: APIXABAN 5 MG TAB PO SCH (21:19)
[2021-10-12 23:51] LABS: Hematocrit 28.5 % (30.3-42.9); Hemoglobin 9.7 gm/dl (10.1-14.3); Mean Corpuscular HGB Conc 34 % (30-34); Mean Corpuscular Volume 90 fl (79-97); Platelet Count 320 K/mm3 (140-440); Red Blood Count 3.17 M/mm3 (3.65-5.03)
[2021-10-13 00:01] LABS: INR 1.08 (0.87-1.13)
[2021-10-13 00:02] LABS: Partial Thromboplastin Time 43.4 Sec. (24.2-36.6)
[2021-10-13 06:03] LABS: Basophils # (Auto) 0.1 K/mm3 (0.0-0.1); Basophils % (Auto) 1.2 % (0.0-1.8); Eosinophils # (Auto) 0.2 K/mm3 (0.0-0.4); Eosinophils % (Auto) 2.9 % (0.0-4.3); Hematocrit 26.1 % (30.3-42.9); Hemoglobin 8.7 gm/dl (10.1-14.3); Lymphocytes # (Auto) 1.4 K/mm3 (1.2-5.4); Lymphocytes % (Auto) 19.5 % (13.4-35.0); Mean Corpuscular HGB Conc 33 % (30-34); Mean Corpuscular Volume 90 fl (79-97); Monocytes # (Auto) 0.6 K/mm3 (0.0-0.8); Monocytes % (Auto) 8.5 % (0.0-7.3); Platelet Count 297 K/mm3 (140-440); Red Blood Count 2.91 M/mm3 (3.65-5.03); Red Cell Distribution Width 13.7 % (13.2-15.2)
[2021-10-13] MEDS: ONDANSETRON 4 MG/2 ML INJ IV PRN (09:02)
[2021-10-13] MEDS: oxyCODONE /ACETAMINOPHEN 5-325MG TAB PO PRN ×2 (09:02→17:46)
[2021-10-13] MEDS: PANTOPRAZOLE 40 MG TAB PO SCH ×2 (09:03)
[2021-10-13] MEDS: APIXABAN 5 MG TAB PO SCH ×3 (09:04→21:55)
[2021-10-13] MEDS: INSULIN LISPRO 100 UNIT/ML SUB-Q SCH ×5 (09:06→21:55)
[2021-10-13] MEDS: carvediloL 12.5 MG TAB PO SCH ×3 (10:00→21:54)
[2021-10-13] MEDS: CILOSTAZOL 100 MG TAB PO SCH ×2 (11:00→21:55)
[2021-10-13] MEDS: CLOPIDOGREL 75 MG TAB PO SCH (11:01)
[2021-10-13] MEDS: LISINOPRIL 5 MG TAB PO SCH (11:04)
--- NOTE | 2021-10-13 11:49 | Progress Note ---
Assessment and Plan Patient is s/p revascularization of left lower extremity. The left foot is hot however I am unable to palpate pedal pulses. She does have small vessels which may account for this. The patient states the foot feels better so I suspect the stents are patent. She complains of right BKA stump numbness. She was noted to have severe stenosis of the right common femoral artery, during her angiogram yesterday. Will confirm patency of the artery with arterial duplex. Since she is obtaining a duplex will also confirm patency of the left lower extremity. Further intervention of the right lower extremity is pending the findings of the duplex. Subjective Date of service: 10/13/21 Principal diagnosis: PVD with gangrene Interval history: Patient states her left leg feels better however she is complaining of numbness to her right BKA stump. She has no additional complaints at this time. Objective - Constitutional Vitals: Vital Signs - 12hr 10/12/21 10/13/21 10/13/21 23:48 00:13 05:50 Temperature 98.0 F 99.2 F Pulse Rate 104 H 105 H Respiratory 18 18 Rate Blood Pressure 121/76 93/45 Blood Pressure [Right] O2 Sat by Pulse 100 100 100 Oximetry 10/13/21 10/13/21 10:54 10:55 Temperature 68.3 F L Pulse Rate 105 H 103 H Respiratory 18 18 Rate Blood Pressure 117/69 Blood Pressure 117/69 [Right] O2 Sat by Pulse 100 100 Oximetry General appearance: Present: no acute distress - Respiratory Respiratory effort: normal - Cardiovascular Rhythm: regular Extremities: no ischemia, normal temperature (Right BKA stump warm, left foot hot) Extremity abnormal: pulses diminished (unable to palpate left pedal pulses), other (right groin without hematoma) - Labs CBC & Chem 7: 10/13/21 05:15 10/12/21 23:06 Labs: Abnormal lab results 10/12/21 10/12/21 10/12/21 Range/Units 21:13 23:06 23:06 RBC 3.17 L (3.65-5.03) M/mm3 Hgb 9.7 L (10.1-14.3) gm/dl Hct 28.5 L (30.3-42.9) % [place] % (Auto) (0.0-7.3) % PT 15.2 H (12.2-14.9) Sec. APTT 43.4 H (24.2-36.6) Sec. Creatinine (0.6-1.2) mg/dL POC Glucose 183 H (70-105) mg/dL 10/12/21 10/13/21 10/13/21 Range/Units 23:06 05:15 07:45 RBC 2.91 L (3.65-5.03) M/mm3 Hgb 8.7 L (10.1-14.3) gm/dl Hct 26.1 L (30.3-42.9) % [place] % (Auto) 8.5 H (0.0-7.3) % PT (12.2-14.9) Sec. APTT (24.2-36.6) Sec. Creatinine 1.4 H (0.6-1.2) mg/dL POC Glucose 180 H (70-105) mg/dL 10/13/21 Range/Units 11:27 RBC (3.65-5.03) M/mm3 Hgb (10.1-14.3) gm/dl Hct (30.3-42.9) % [place] % (Auto) (0.0-7.3) % PT (12.2-14.9) Sec. APTT (24.2-36.6) Sec. Creatinine (0.6-1.2) mg/dL POC Glucose 241 H (70-105) mg/dL Medications & Allergies - Medications Allergies/Adverse Reactions: Allergies latex Allergy (Verified 10/09/21 13:42) Swelling Home Medications: Home Medications Medication Instructions Recorded Confirmed Last Taken Type Insulin Glargine [Lantus VIAL] 8 units SUB-Q QHS 30 Days #3 ml 06/19/21 10/10/21 1 Day Ago Rx ~10/09/21 carvediloL [Coreg] 12.5 mg PO BID 30 Days #60 tablet 06/19/21 10/10/21 1 Day Ago Rx ~10/09/21 Metoclopramide [Reglan] 10 mg PO TID PRN #15 tab 07/09/21 10/10/21 1 Day Ago Rx ~10/09/21 Nitrofurantoin [place]/M-Cryst 100 mg PO Q12HR #14 capsule 07/09/21 10/10/21 1 Day Ago Rx [Macrobid CAP] ~10/09/21 Nitrofurantoin [place]/M-Cryst 100 mg PO Q12HR #14 capsule 08/12/21 10/10/21 1 Day Ago Rx [Macrobid CAP] ~10/09/21 Ondansetron [Zofran Odt] 4 mg PO Q8HR PRN #14 tab.rapdis 08/12/21 10/10/21 1 Day Ago Rx ~10/09/21 traMADoL [Ultram 50 MG tab] 50 mg PO Q4HR PRN #14 tablet 08/12/21 10/10/21 1 Day Ago Rx ~10/09/21 Active Medications: Generic Name Dose Route Start Last Admin Trade Name Freq PRN Reason Stop Dose Admin Acetaminophen 650 mg 10/09/21 17:16 Acetaminophen 325 Mg Tab PO Q4H PRN Pain MILD(1-3)/Fever >100.5/FULTON Apixaban 5 mg 10/12/21 18:32 10/13/21 11:00 Apixaban 5 Mg Tab PO 5 mg BID CHUCK Administration Protocol Carvedilol 12.5 mg 10/09/21 22:00 10/13/21 11:01 Carvedilol 12.5 Mg Tab PO 12.5 mg BID CHUCK Administration Cilostazol 100 mg 10/12/21 22:00 10/13/21 11:00 Cilostazol 100 Mg Tab PO 100 mg BID CHUCK Administration Clopidogrel Bisulfate 75 mg 10/13/21 10:00 10/13/21 11:01 Clopidogrel 75 Mg Tab PO 75 mg QDAY CHUCK Administration Dextrose 0 ml 10/09/21 16:43 Dextrose 10% *Hypoglycemia IV PRN PRN Hypoglycemia Hydralazine HCl 10 mg 10/09/21 17:23 Hydralazine 20 Mg/1 Ml Inj IV Q6HR PRN Hypertension Hydromorphone HCl 0.5 mg 10/09/21 17:16 Hydromorphone 1 Mg/1 Ml Inj IV Q12H PRN Pain , Severe (7-10) Insulin Glargine 8 units 10/09/21 22:00 10/12/21 21:18 Insulin Glargine 100 Units/Ml SUB-Q 8 units QHS CHUCK Administration Insulin Human Lispro 0 unit 10/10/21 07:30 10/13/21 11:03 Insulin Lispro 100 Unit/Ml SUB-Q 3 unit ACHS CHUCK Administration Protocol Lisinopril 5 mg 10/09/21 17:23 10/13/21 11:04 Lisinopril 5 Mg Tab PO 5 mg QDAY CHUCK Administration Metoclopramide HCl 10 mg 10/09/21 17:24 Metoclopramide 10 Mg Tab PO TID PRN Nausea Ondansetron HCl 4 mg 10/09/21 17:16 10/13/21 09:02 Ondansetron 4 Mg/2 Ml Inj IV 4 mg Q8H PRN Administration Nausea And Vomiting Oxycodone/Acetaminophen 1 tab 10/09/21 17:16 10/13/21 09:02 Oxycodone /Acetaminophen 5-325mg Tab PO 1 tab Q8H PRN Administration Pain, Moderate (4-6) Pantoprazole Sodium 40 mg 10/12/21 19:00 10/13/21 09:03 Pantoprazole 40 Mg Tab PO 40 mg QDAC CHUCK Administration Sodium Chloride 10 ml 10/09/21 22:00 10/13/21 11:06 Sodium Chloride 0.9% 10 Ml Flush Syringe IV Not Given BID CHUCK Sodium Chloride 10 ml 10/09/21 17:16 Sodium Chloride 0.9% 10 Ml Flush Syringe IV PRN PRN LINE FLUSH HEART Score - HEART Score Troponin: Troponin T < 0.010 ng/mL (0.00-0.029) 10/09/21 14:48
--- NOTE | 2021-10-13 16:39 | Vascular Lab Report ---
DUPLEX DOPPLER LOWER EXTREMITY ARTERIAL, BILATERAL INDICATION / CLINICAL INFORMATION: Right stump numbness. TECHNIQUE: Arterial duplex examination of both lower extremities performed using B-mode, color flow a nd spectral Doppler assessment. COMPARISON: Left lower extremity arterial Doppler 10/10/2021. FINDINGS: RIGHT: Common Femoral Artery: PSV 29 cm/sec. Monophasic waveform. Proximal SFA: Absent color Doppler blood flow. Mid SFA: Absent color Doppler blood flow. Distal SFA: Absent color Doppler blood flow. Popliteal artery: PSV 7 cm/sec. Monophasic waveform. LEFT: Common Femoral Artery: PSV 261 cm/sec. Monophasic waveform. Proximal SFA: PSV 200 cm/sec. Monophasic waveform. Mid SFA: PSV 116 cm/sec. Monophasic waveform. Distal SFA: PSV 104 cm/sec. Monophasic waveform. Popliteal artery: PSV 94 cm/sec. Monophasic waveform. Posterior tibial artery: PSV 97 cm/sec. Monophasic waveform. Dorsalis Pedis Artery: PSV 83 cm/sec. Monophasic waveform. Right NACHO: Not calculated. Left NACHO: Not calculated. IMPRESSION: 1. There is occlusion of the right superficial femoral artery and near occlusion of the popliteal art carol. 2. The left superficial femoral artery stent is patent. Monophasic waveforms are noted throughout the left lower extremity. Ankle-Brachial Index (NACHO): - Calcified arteries > 1.4 - Normal = 0.9-1.4 - Mild PAD = 0.7-0.89 - Moderate PAD = 0.51-0.69 - Severe PAD < 0.5 Doppler Waveform: - Triphasic is normal. - Biphasic is abnormal if clear transition from triphasic signal along vascular tree. - Monophasic is abnormal. Scribed by: Eleanor Flynn RDMS, RVT, DENNYSKS Scribed: 10/13/2021 2:22 PM I have reviewed the images, agree with this report, and edited this report as needed. Signer Name: Yong Vazquez MD Signed: 10/13/2021 4:35 PM Workstation Name: [id number]
--- NOTE | 2021-10-13 17:15 | Electrocardiograph Report ---
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
--- NOTE | 2021-10-13 19:58 | Progress Note ---
Assessment and Plan Assessment and plan: Patient with left lower extremity critical limb ischemia underwent revascularization of the left lower extremity yesterday. Today morning patient complains of right BKA site numbness. Left lower extremity is warm on palpation however unable to feel pedal pulses. Vascular evaluated today and recommended bilateral lower extremity arterial Dopplers. Left lower extremity critical limb ischemia; s/p revascularization procedure 10/12/2021 Lower extremity is warm to touch, unable to feel the pulses Ordered arterial Doppler -- Peripheral vascular disease: with slow healing left foot ulcer M cyanosis of first and second toe vascular team evaluated, plan for arterial duplex today, follow vascular recommendation -- Hyperosmolar hyperglycemic state (HHS): Accu-Chek, sliding scale coverage , long-acting insulin therapy, IV fluid and supportive care Diabetic education, diabetic nutrition education prior to discharge Home health nurse for disease monitoring at discharge -- Hypertensive urgency: Present on admission Blood pressures well controlled today, continue current antihypertensives And as needed medications --Nicotine dependence: Smoking cessation counseling, nicotine patch as needed supportive care, behavior change counseling, +15 minutes. --DVT prophylaxis: SCD to bilateral lower extremities while in bed, Subcu heparin --Advance care planning: Disease education conducted, care plan discussed, diagnoses discussed, prognosis discussed, patient is full code. Patient acknowledges understanding agreement with care plan, +30 minutes. --Medical noncompliance : Patient counseled. Patient acknowledges understanding instructions. Patient states that she will attempt to be compliant with medication in the future. Patient requests cheaper insulin therapy. Due to difficulty with purchasing current regimen. Follow vascular procedures and vascular recommendations We will closely monitor the patient and adjust the management as needed . Daily clinical course: 10/10/21: No need for any surgical intervention by GS, plan for arterial duplex by vascular 10/11/21: She presented with complaints of a slow healing left leg ulcer. The patient also has cyanotic changes to her first and second toe. Per vascular need for an arterial duplex of the left leg to evaluate her arterial flow. Depending on the findings of the duplex further intervention will be discussed after the testing. s/p arterial duplex of LE today, Suspect thrombotic left SFA lesion w ith subsequent distal embolization. Plan for revascularization tomorrow. NPO after MN except sips with meds. 10/12/21: Follow revascularization vascular procedures and vascular recommendations 10/13/2021; status post revascularization of the left lower extremity yesterday, sluggish pedal pulses, patient complains of right BKA stump numbness Follow bilateral arterial Doppler, Vascular following History Interval history: I have seen and examined the patient at the bedside Patient's chart and medications reviewed Patient with ischemic left lower extremity Underwent revascularization yesterday 10/12/2021 Patient complains of numbness of the right BKA site Hospitalist Physical - Constitutional Vitals: Temp Pulse Resp BP Pulse Ox 68.3 F L 103 H 18 117/69 100 10/13/21 10:55 10/13/21 10:55 10/13/21 10:55 10/13/21 10:55 10/13/21 12:00 General appearance: Present: no acute distress, well-nourished - EENT Eyes: Present: PERRL, EOM intact - Neck Neck: Present: supple, normal ROM - Respiratory Respiratory effort: normal Respiratory: bilateral: diminished, negative: rales, rhonchi, wheezing - Cardiovascular Rhythm: regular Heart Sounds: Present: S1 & S2 - Extremities Extremities: abnormal (S/p right BKA) Extremity abnormal: other (Unable to appreciate pedal pulses left lower extremity) - Abdominal General gastrointestinal: soft, non-tender, non-distended, normal bowel sounds - Integumentary Integumentary: Present: clear, warm - Psychiatric Psychiatric: appropriate mood/affect, cooperative - Neurologic Neurologic: CNII-XII intact, moves all extremities HEART Score - HEART Score Troponin: Troponin T < 0.010 ng/mL (0.00-0.029) 10/09/21 14:48 Results - Labs CBC & Chem 7: 10/13/21 05:15 10/12/21 23:06 Labs: Laboratory Last Values WBC 7.2 K/mm3 (4.5-11.0) 10/13/21 05:15 RBC 2.91 M/mm3 (3.65-5.03) L 10/13/21 05:15 Hgb 8.7 gm/dl (10.1-14.3) L 10/13/21 05:15 Hct 26.1 % (30.3-42.9) L 10/13/21 05:15 MCV 90 fl (79-97) 10/13/21 05:15 MCH 30 pg (28-32) 10/13/21 05:15 MCHC 33 % (30-34) 10/13/21 05:15 RDW 13.7 % (13.2-15.2) 10/13/21 05:15 Plt Count 297 K/mm3 (140-440) 10/13/21 05:15 Lymph % (Auto) 19.5 % (13.4-35.0) 10/13/21 05:15 [place] % (Auto) 8.5 % (0.0-7.3) H 10/13/21 05:15 Eos % (Auto) 2.9 % (0.0-4.3) 10/13/21 05:15 Baso % (Auto) 1.2 % (0.0-1.8) 10/13/21 05:15 Lymph # (Auto) 1.4 K/mm3 (1.2-5.4) 10/13/21 05:15 [place] # (Auto) 0.6 K/mm3 (0.0-0.8) 10/13/21 05:15 Eos # (Auto) 0.2 K/mm3 (0.0-0.4) 10/13/21 05:15 Baso # (Auto) 0.1 K/mm3 (0.0-0.1) 10/13/21 05:15 Seg Neutrophils % 67.9 % (40.0-70.0) 10/13/21 05:15 Seg Neutrophils # 4.9 K/mm3 (1.8-7.7) 10/13/21 05:15 PT 15.2 Sec. (12.2-14.9) H 10/12/21 23:06 INR 1.08 (0.87-1.13) 10/12/21 23:06 APTT 43.4 Sec. (24.2-36.6) H 10/12/21 23:06 VBG pH 7.271 (7.320-7.420) L 10/09/21 13:58 Sodium 138 mmol/L (137-145) 10/12/21 06:41 Potassium 4.2 mmol/L (3.6-5.0) 10/12/21 06:41 Chloride 103.1 mmol/L (98-107) 10/12/21 06:41 Carbon Dioxide 21 mmol/L (22-30) L 10/12/21 06:41 Anion Gap 18 mmol/L 10/12/21 06:41 BUN 11 mg/dL (7-17) 10/12/21 06:41 Creatinine 1.4 mg/dL (0.6-1.2) H 10/12/21 23:06 Estimated GFR 53 ml/min 10/12/21 23:06 BUN/Creatinine Ratio 9 % 10/12/21 06:41 Glucose 159 mg/dL (65-100) H 10/12/21 06:41 POC Glucose 163 mg/dL (70-105) H 10/13/21 16:21 Calcium 8.4 mg/dL (8.4-10.2) 10/12/21 06:41 Magnesium 1.90 mg/dL (1.7-2.3) 10/09/21 14:48 Total Bilirubin < 0.20 mg/dL (0.1-1.2) 10/09/21 13:58 AST 11 units/L (5-40) 10/09/21 13:58 ALT 9 units/L (7-56) 10/09/21 13:58 Alkaline Phosphatase 149 units/L (35-129) H 10/09/21 13:58 Troponin T < 0.010 ng/mL (0.00-0.029) 10/09/21 14:48 NT-Pro-B Natriuret Pep 408.9 pg/mL (0-450) 10/09/21 14:48 Total Protein 7.0 g/dL (6.3-8.2) 10/09/21 13:58 Albumin 3.8 g/dL (3.9-5) L 10/09/21 13:58 Albumin/Globulin Ratio 1.2 % 10/09/21 13:58 Lipase 51 units/L (13-60) 10/09/21 14:48 TSH 0.795 mlU/mL (0.270-4.200) 10/09/21 14:48 HCG, Qual Negative (Negative) 10/09/21 13:58 Urine Color Yellow (Yellow) 10/09/21 Unknown Urine Turbidity Clear (Clear) 10/09/21 Unknown Urine pH 7.0 (5.0-7.0) 10/09/21 Unknown Ur Specific [place] 1.013 (1.003-1.030) 10/09/21 Unknown Urine Protein 30 mg/dl mg/dL (Negative) 10/09/21 Unknown Urine Glucose (UA) >=500 mg/dL (Negative) 10/09/21 Unknown Urine Ketones Neg mg/dL (Negative) 10/09/21 Unknown Urine Blood Sm (Negative) 10/09/21 Unknown Urine Nitrite Neg (Negative) 10/09/21 Unknown Urine Bilirubin Neg (Negative) 10/09/21 Unknown Urine Urobilinogen < 2.0 mg/dL (<2.0) 10/09/21 Unknown Ur Leukocyte Esterase Sm (Negative) 10/09/21 Unknown Urine WBC (Auto) 33.0 /HPF (0.0-6.0) H 10/09/21 Unknown Urine RBC (Auto) 2.0 /HPF (0.0-6.0) 10/09/21 Unknown U Epithel Cells (Auto) 3.0 /HPF (0-13.0) 10/09/21 Unknown Urine Bacteria (Auto) 1+ /HPF (Negative) 10/09/21 Unknown Urine Mucus Few /HPF 10/09/21 Unknown Urine Opiates Screen Negative 10/09/21 Unknown Urine Methadone Screen Negative 10/09/21 Unknown Ur Barbiturates Screen Negative 10/09/21 Unknown Ur Phencyclidine Scrn Negative 10/09/21 Unknown Ur Amphetamines Screen Negative 10/09/21 Unknown U Benzodiazepines Scrn Negative 10/09/21 Unknown Urine Cocaine Screen Negative 10/09/21 Unknown U Marijuana (THC) Screen Positive 10/09/21 Unknown Drugs of Abuse Note Disclamer 10/09/21 Unknown Plasma/Serum Alcohol < 0.01 % (0-0.07) 10/09/21 14:48 Microbiology: Microbiology 10/09/21 14:48 Peripheral/Venous Blood Culture - Preliminary NO GROWTH AFTER 4 DAYS 10/09/21 14:48 Peripheral/Venous Blood Culture - Preliminary NO GROWTH AFTER 4 DAYS 10/09/21 16:27 Urine,Clean Catch Urine Culture - Final Escherichia Coli Hickman/IV: Voiding Method External Female Catheter Active Medications - Current Medications Current Medications: Generic Name Dose Route Start Last Admin Trade Name Freq PRN Reason Stop Dose Admin Acetaminophen 650 mg 10/09/21 17:16 Acetaminophen 325 Mg Tab PO Q4H PRN Pain MILD(1-3)/Fever >100.5/FULTON Apixaban 5 mg 10/12/21 18:32 10/13/21 11:00 Apixaban 5 Mg Tab PO 5 mg BID CHUCK Administration Protocol Carvedilol 12.5 mg 10/09/21 22:00 10/13/21 11:01 Carvedilol 12.5 Mg Tab PO 12.5 mg BID CHUCK Administration Cilostazol 100 mg 10/12/21 22:00 10/13/21 11:00 Cilostazol 100 Mg Tab PO 100 mg BID CHUCK Administration Clopidogrel Bisulfate 75 mg 10/13/21 10:00 10/13/21 11:01 Clopidogrel 75 Mg Tab PO 75 mg QDAY CHUCK Administration Dextrose 0 ml 10/09/21 16:43 Dextrose 10% *Hypoglycemia IV PRN PRN Hypoglycemia Hydralazine HCl 10 mg 10/09/21 17:23 Hydralazine 20 Mg/1 Ml Inj IV Q6HR PRN Hypertension Hydromorphone HCl 0.5 mg 10/09/21 17:16 Hydromorphone 1 Mg/1 Ml Inj IV Q12H PRN Pain , Severe (7-10) Insulin Glargine 8 units 10/09/21 22:00 10/12/21 21:18 Insulin Glargine 100 Units/Ml SUB-Q 8 units QHS CHUCK Administration Insulin Human Lispro 0 unit 10/10/21 07:30 10/13/21 17:12 Insulin Lispro 100 Unit/Ml SUB-Q 3 unit ACHS CHUCK Administration Protocol Lisinopril 5 mg 10/09/21 17:23 10/13/21 11:04 Lisinopril 5 Mg Tab PO 5 mg QDAY CHUCK Administration Metoclopramide HCl 10 mg 10/09/21 17:24 Metoclopramide 10 Mg Tab PO TID PRN Nausea Ondansetron HCl 4 mg 10/09/21 17:16 10/13/21 09:02 Ondansetron 4 Mg/2 Ml Inj IV 4 mg Q8H PRN Administration Nausea And Vomiting Oxycodone/Acetaminophen 1 tab 10/09/21 17:16 10/13/21 17:46 Oxycodone /Acetaminophen 5-325mg Tab PO 1 tab Q8H PRN Administration Pain, Moderate (4-6) Pantoprazole Sodium 40 mg 10/12/21 19:00 10/13/21 09:03 Pantoprazole 40 Mg Tab PO 40 mg QDAC CHUCK Administration Sodium Chloride 10 ml 10/09/21 22:00 10/13/21 11:06 Sodium Chloride 0.9% 10 Ml Flush Syringe IV Not Given BID CHUCK Sodium Chloride 10 ml 10/09/21 17:16 Sodium Chloride 0.9% 10 Ml Flush Syringe IV PRN PRN LINE FLUSH Nutrition/Malnutrition Assess - Dietary Evaluation Nutrition/Malnutrition Findings: Nutrition Notes Start: 10/10/21 14:39 Freq: Status: Active Protocol: Document 10/10/21 14:40 MERCED (Rec: 10/10/21 14:49 MERCED [id number]) Nutrition Notes Need for Assessment generated from: MD Order,Education Initial or Follow up Brief Note Current Diagnosis Diabetes,Hypertension Other Pertinent Diagnosis Chronic L-Foot Ulcer, PVD s/p R-BKA, Asthma. Current Diet Cardiac/Consistent Carbohydrates Diet (since D ). Height 5 ft 4 in Weight 72.7 kg [place] Body Weight (kg) 54.54 BMI 27.5 Intake Prior to Admission Good Weight change and time frame Pt denies having loss body weight recently. Weight Status Overweight Subjective/Other Information RD consult for Nutrition Education. No reports available on Pt's PO intake of meals at the time . Pt still on ED, not a candidate for Nutrition Education at the time, will assess feasibility on F/U. Percent of energy/protein needs met: Prescribed Cardiac/Consistent Carbohydrates Diet provides for energy/protein needs (1, 977 Kcal/86 g) during LOS. Nutrition Intervention Follow-Up By: 10/15/21 Additional Comments Nutrition education will be provided on F/U, if feasible. Continue monitoring food tolerance, %PO intake of meals , and BM.
[2021-10-13] MEDS: INSULIN GLARGINE 100 UNITS/ML SUB-Q SCH (21:55)
[2021-10-14] MEDS: oxyCODONE /ACETAMINOPHEN 5-325MG TAB PO PRN ×3 (00:08→17:48)
[2021-10-14 05:33] LABS: Hematocrit 22.2 % (30.3-42.9); Hemoglobin 7.5 gm/dl (10.1-14.3); Mean Corpuscular HGB Conc 34 % (30-34); Mean Corpuscular Volume 89 fl (79-97); Platelet Count 255 K/mm3 (140-440); Red Cell Distribution Width 13.5 % (13.2-15.2)
[2021-10-14] MEDS: PANTOPRAZOLE 40 MG TAB PO SCH ×2 (08:01→22:00)
[2021-10-14] MEDS: APIXABAN 5 MG TAB PO SCH ×2 (09:42→22:00)
[2021-10-14] MEDS: CILOSTAZOL 100 MG TAB PO SCH ×2 (09:42→22:00)
[2021-10-14] MEDS: CLOPIDOGREL 75 MG TAB PO SCH (09:42)
[2021-10-14] MEDS: INSULIN LISPRO 100 UNIT/ML SUB-Q SCH ×4 (09:42→22:00)
[2021-10-14] MEDS: LISINOPRIL 5 MG TAB PO SCH (09:42)
[2021-10-14] MEDS: carvediloL 12.5 MG TAB PO SCH ×2 (09:43→20:00)
--- NOTE | 2021-10-14 10:05 | Progress Note ---
Assessment and Plan Assessment and plan: Acute kidney injury ; probably secondary to ATN worsening renal function ; Cr jumped from 1.4 -1.9 today In the setting of vascular procedures angiogram, we will closely monitor renal function Start IV normal saline, 250 mL normal saline fluid bolus. plenty of oral fluids, avoid nephrotoxins, Check renal function/creatinine tomorrow for improvement And possible discharge if stable Discussed this plan of treatment with the patient Left lower extremity critical limb ischemia; s/p revascularization procedure 10/12/2021 2Lower extremity is warm to touch, unable to feel the pulses Ordered arterial Doppler, right BKA stump numbness/resolved today Bilateral lower extremity arterial Doppler 10/13/2021: occlusion of the right superficial femoral artery and near occlusion of the popliteal artery Left superficial femoral artery stent is patent, monophasic waveforms are noted throughout the left lower extremity Today patient's limb is warm to touch and palpable pedal pulses, vascular cleared the patient for discharge On Eliquis 5 mg twice a day and follow-up in 2 weeks in the office -- Peripheral vascular disease: Status post revascularization by vascular, currently on -- Hyperosmolar hyperglycemic state (HHS): Accu-Chek, sliding scale coverage , long-acting insulin therapy, IV fluid and supportive care Diabetic education, diabetic nutrition education prior to discharge Home health nurse for disease monitoring at discharge -- Hypertensive urgency: Present on admission Blood pressures well controlled today, continue current antihypertensives And as needed medications --Nicotine dependence: Smoking cessation counseling, nicotine patch as needed supportive care, behavior change counseling, +15 minutes. --DVT prophylaxis: SCD to bilateral lower extremities while in bed, Subcu heparin --Advance care planning: Disease education conducted, care plan discussed, diagnoses discussed, prognosis discussed, patient is full code. Patient acknowledges understanding agreement with care plan, +30 minutes. --Medical noncompliance : Patient counseled. Patient acknowledges understanding instructions. Patient states that she will attempt to be compliant with medication in the future. Patient requests cheaper insulin therapy. Due to difficulty with purchasing current regimen. Follow vascular procedures and vascular recommendations We will closely monitor the patient and adjust the management as needed . Daily clinical course: 10/10/21: No need for any surgical intervention by GS, plan for arterial duplex by vascular 10/11/21: She presented with complaints of a slow healing left leg ulcer. The patient also has cyanotic changes to her first and second toe. Per vascular need for an arterial duplex of the left leg to evaluate her arterial flow. Depending on the findings of the duplex further intervention will be discussed after the testing. s/p arterial duplex of LE today, Suspect thrombotic left SFA lesion with subsequent distal embolization. Plan for revascularization tomorrow. NPO after MN except sips with meds. 10/12/21: Follow revascularization vascular procedures and vascular recommendations 10/13/2021; status post revascularization of the left lower extremity yesterday, sluggish pedal pulses, patient complains of right BKA stump numbness Follow bilateral arterial Doppler, Vascular following 10/14; vascular cleared for discharge however patient has worsening renal function creatinine 1.9, will start IV fluids Recommend plenty of oral fluids, and follow renal function, if starts trending down may discharge tomorrow with follow-up visit with nephrology History Interval history: I have seen and examined the patient at the bedside Patient's chart and medications reviewed patient feels slightly better Worsening renal function creatinine jumped to 1.9 Hospitalist Physical - Constitutional Vitals: Temp Pulse Resp BP Pulse Ox 98.0 F 109 H 18 119/69 100 10/14/21 08:07 10/14/21 08:07 10/14/21 08:07 10/14/21 08:07 10/14/21 08:07 General appearance: Present: no acute distress, well-nourished - EENT Eyes: Present: PERRL, EOM intact - Neck Neck: Present: supple, normal ROM - Respiratory Respiratory effort: normal Respiratory: bilateral: diminished, negative: rales, rhonchi, wheezing - Cardiovascular Rhythm: regular Heart Sounds: Present: S1 & S2 - Extremities Extremities: no ischemia, No edema - Abdominal General gastrointestinal: soft, non-tender, non-distended, normal bowel sounds - Integumentary Integumentary: Present: clear, warm - Psychiatric Psychiatric: appropriate mood/affect, cooperative - Neurologic Neurologic: CNII-XII intact, moves all extremities HEART Score - HEART Score Troponin: Troponin T < 0.010 ng/mL (0.00-0.029) 10/09/21 14:48 Results - Labs CBC & Chem 7: 10/14/21 05:20 10/14/21 05:20 Labs: Laboratory Last Values WBC 6.6 K/mm3 (4.5-11.0) 10/14/21 05:20 RBC 2.50 M/mm3 (3.65-5.03) L 10/14/21 05:20 Hgb 7.5 gm/dl (10.1-14.3) L 10/14/21 05:20 Hct 22.2 % (30.3-42.9) L 10/14/21 05:20 MCV 89 fl (79-97) 10/14/21 05:20 MCH 30 pg (28-32) 10/14/21 05:20 MCHC 34 % (30-34) 10/14/21 05:20 RDW 13.5 % (13.2-15.2) 10/14/21 05:20 Plt Count 255 K/mm3 (140-440) 10/14/21 05:20 Lymph % (Auto) 19.5 % (13.4-35.0) 10/13/21 05:15 [place] % (Auto) 8.5 % (0.0-7.3) H 10/13/21 05:15 Eos % (Auto) 2.9 % (0.0-4.3) 10/13/21 05:15 Baso % (Auto) 1.2 % (0.0-1.8) 10/13/21 05:15 Lymph # (Auto) 1.4 K/mm3 (1.2-5.4) 10/13/21 05:15 [place] # (Auto) 0.6 K/mm3 (0.0-0.8) 10/13/21 05:15 Eos # (Auto) 0.2 K/mm3 (0.0-0.4) 10/13/21 05:15 Baso # (Auto) 0.1 K/mm3 (0.0-0.1) 10/13/21 05:15 Seg Neutrophils % 67.9 % (40.0-70.0) 10/13/21 05:15 Seg Neutrophils # 4.9 K/mm3 (1.8-7.7) 10/13/21 05:15 PT 15.2 Sec. (12.2-14.9) H 10/12/21 23:06 INR 1.08 (0.87-1.13) 10/12/21 23:06 APTT 43.4 Sec. (24.2-36.6) H 10/12/21 23:06 VBG pH 7.271 (7.320-7.420) L 10/09/21 13:58 Sodium 138 mmol/L (137-145) 10/12/21 06:41 Potassium 4.2 mmol/L (3.6-5.0) 10/12/21 06:41 Chloride 103.1 mmol/L (98-107) 10/12/21 06:41 Carbon Dioxide 21 mmol/L (22-30) L 10/12/21 06:41 Anion Gap 18 mmol/L 10/12/21 06:41 BUN 11 mg/dL (7-17) 10/12/21 06:41 Creatinine 1.9 mg/dL (0.6-1.2) H 10/14/21 05:20 Estimated GFR 37 ml/min 10/14/21 05:20 BUN/Creatinine Ratio 9 % 10/12/21 06:41 Glucose 159 mg/dL (65-100) H 10/12/21 06:41 POC Glucose 167 mg/dL (70-105) H 10/14/21 08:06 Calcium 8.4 mg/dL (8.4-10.2) 10/12/21 06:41 Magnesium 1.90 mg/dL (1.7-2.3) 10/09/21 14:48 Total Bilirubin < 0.20 mg/dL (0.1-1.2) 10/09/21 13:58 AST 11 units/L (5-40) 10/09/21 13:58 ALT 9 units/L (7-56) 10/09/21 13:58 Alkaline Phosphatase 149 units/L (35-129) H 10/09/21 13:58 Troponin T < 0.010 ng/mL (0.00-0.029) 10/09/21 14:48 NT-Pro-B Natriuret Pep 408.9 pg/mL (0-450) 10/09/21 14:48 Total Protein 7.0 g/dL (6.3-8.2) 10/09/21 13:58 Albumin 3.8 g/dL (3.9-5) L 10/09/21 13:58 Albumin/Globulin Ratio 1.2 % 10/09/21 13:58 Lipase 51 units/L (13-60) 10/09/21 14:48 TSH 0.795 mlU/mL (0.270-4.200) 10/09/21 14:48 HCG, Qual Negative (Negative) 10/09/21 13:58 Urine Color Yellow (Yellow) 10/09/21 Unknown Urine Turbidity Clear (Clear) 10/09/21 Unknown Urine pH 7.0 (5.0-7.0) 10/09/21 Unknown Ur Specific [place] 1.013 (1.003-1.030) 10/09/21 Unknown Urine Protein 30 mg/dl mg/dL (Negative) 10/09/21 Unknown Urine Glucose (UA) >=500 mg/dL (Negative) 10/09/21 Unknown Urine Ketones Neg mg/dL (Negative) 10/09/21 Unknown Urine Blood Sm (Negative) 10/09/21 Unknown Urine Nitrite Neg (Negative) 10/09/21 Unknown Urine Bilirubin Neg (Negative) 10/09/21 Unknown Urine Urobilinogen < 2.0 mg/dL (<2.0) 10/09/21 Unknown Ur Leukocyte Esterase Sm (Negative) 10/09/21 Unknown Urine WBC (Auto) 33.0 /HPF (0.0-6.0) H 10/09/21 Unknown Urine RBC (Auto) 2.0 /HPF (0.0-6.0) 10/09/21 Unknown U Epithel Cells (Auto) 3.0 /HPF (0-13.0) 10/09/21 Unknown Urine Bacteria (Auto) 1+ /HPF (Negative) 10/09/21 Unknown Urine Mucus Few /HPF 10/09/21 Unknown Urine Opiates Screen Negative 10/09/21 Unknown Urine Methadone Screen Negative 10/09/21 Unknown Ur Barbiturates Screen Negative 10/09/21 Unknown Ur Phencyclidine Scrn Negative 10/09/21 Unknown Ur Amphetamines Screen Negative 10/09/21 Unknown U Benzodiazepines Scrn Negative 10/09/21 Unknown Urine Cocaine Screen Negative 10/09/21 Unknown U Marijuana (THC) Screen Positive 10/09/21 Unknown Drugs of Abuse Note Disclamer 10/09/21 Unknown Plasma/Serum Alcohol < 0.01 % (0-0.07) 10/09/21 14:48 Microbiology: Microbiology 10/09/21 14:48 Peripheral/Venous Blood Culture - Preliminary NO GROWTH AFTER 4 DAYS 10/09/21 14:48 Peripheral/Venous Blood Culture - Preliminary NO GROWTH AFTER 4 DAYS 10/09/21 16:27 Urine,Clean Catch Urine Culture - Final Escherichia Coli [place]/IV: Voiding Method Toilet Active Medications - Current Medications Current Medications: Generic Name Dose Route Start Last Admin Trade Name Freq PRN Reason Stop Dose Admin Acetaminophen 650 mg 10/09/21 17:16 Acetaminophen 325 Mg Tab PO Q4H PRN Pain MILD(1-3)/Fever >100.5/FULTON Apixaban 5 mg 10/12/21 18:32 10/14/21 09:42 Apixaban 5 Mg Tab PO 5 mg BID CHUCK Administration Protocol Carvedilol 12.5 mg 10/09/21 22:00 10/14/21 09:43 Carvedilol 12.5 Mg Tab PO 12.5 mg BID CHUCK Administration Cilostazol 100 mg 10/12/21 22:00 10/14/21 09:42 Cilostazol 100 Mg Tab PO 100 mg BID CHUCK Administration Clopidogrel Bisulfate 75 mg 10/13/21 10:00 10/14/21 09:42 Clopidogrel 75 Mg Tab PO 75 mg QDAY CHUCK Administration Dextrose 0 ml 10/09/21 16:43 Dextrose 10% *Hypoglycemia IV PRN PRN Hypoglycemia Hydralazine HCl 10 mg 10/09/21 17:23 Hydralazine 20 Mg/1 Ml Inj IV Q6HR PRN Hypertension Hydromorphone HCl 0.5 mg 10/09/21 17:16 Hydromorphone 1 Mg/1 Ml Inj IV Q12H PRN Pain , Severe (7-10) Insulin Glargine 8 units 10/09/21 22:00 10/13/21 21:55 Insulin Glargine 100 Units/Ml SUB-Q 8 units QHS CHUCK Administration Insulin Human Lispro 0 unit 10/10/21 07:30 10/14/21 09:42 Insulin Lispro 100 Unit/Ml SUB-Q 3 unit ACHS CHUCK Administration Protocol Lisinopril 5 mg 10/09/21 17:23 10/14/21 09:42 Lisinopril 5 Mg Tab PO 5 mg QDAY CHUCK Administration Metoclopramide HCl 10 mg 10/09/21 17:24 Metoclopramide 10 Mg Tab PO TID PRN Nausea Ondansetron HCl 4 mg 10/09/21 17:16 10/13/21 09:02 Ondansetron 4 Mg/2 Ml Inj IV 4 mg Q8H PRN Administration Nausea And Vomiting Oxycodone/Acetaminophen 1 tab 10/09/21 17:16 10/14/21 08:01 Oxycodone /Acetaminophen 5-325mg Tab PO 1 tab Q8H PRN Administration Pain, Moderate (4-6) Pantoprazole Sodium 40 mg 10/12/21 19:00 10/14/21 08:01 Pantoprazole 40 Mg Tab PO 40 mg QDAC CHUCK Administration Sodium Chloride 10 ml 10/09/21 22:00 10/14/21 09:45 Sodium Chloride 0.9% 10 Ml Flush Syringe IV 10 ml BID CHUCK Administration Sodium Chloride 10 ml 10/09/21 17:16 Sodium Chloride 0.9% 10 Ml Flush Syringe IV PRN PRN LINE FLUSH Nutrition/Malnutrition Assess - Dietary Evaluation Nutrition/Malnutrition Findings: Nutrition Notes Start: 10/10/21 14:39 Freq: Status: Active Protocol: Document 10/10/21 14:40 MERCED (Rec: 10/10/21 14:49 MERCED [id number]) Nutrition Notes Need for Assessment generated from: MD Order,Education Initial or Follow up Brief Note Current Diagnosis Diabetes,Hypertension Other Pertinent Diagnosis Chronic L-Foot Ulcer, PVD s/p R-BKA, Asthma. Current Diet Cardiac/Consistent Carbohydrates Diet (since D ). Height 5 ft 4 in Weight 72.7 kg [place] Body Weight (kg) 54.54 BMI 27.5 Intake Prior to Admission Good Weight change and time frame Pt denies having loss body weight recently. Weight Status Overweight Subjective/Other Information RD consult for Nutrition Education. No reports available on Pt's PO intake of meals at the time . Pt still on ED, not a candidate for Nutrition Education at the time, will assess feasibility on F/U. Percent of energy/protein needs met: Prescribed Cardiac/Consistent Carbohydrates Diet provides for energy/protein needs (1, 977 Kcal/86 g) during LOS. Nutrition Intervention Follow-Up By: 10/15/21 Additional Comments Nutrition education will be provided on F/U, if feasible. Continue monitoring food tolerance, %PO intake of meals , and BM.
--- NOTE | 2021-10-14 10:57 | Progress Note ---
Assessment and Plan Patient has been ambulating discretely on her own since her procedure with no significant difficulty. She will need to ambulate with nursing prior to discharge. She will be discharged home on 5 mg of Eliquis twice a day and follow-up in our office in 2 weeks. Okay to discharge home today from a vascular standpoint. Subjective Date of service: 10/14/21 Principal diagnosis: PVD with gangrene Interval history: Patient with a history of peripheral vascular disease status post right BKA on prior admission in the hospital. On this admission, the patient underwent revascularization of her left leg. Her left leg is warm and well perfused with minimal reperfusion edema. The patient has no complaints of any pain in her left leg. Her right stump pain has improved. Objective - Constitutional Vitals: Vital Signs - 12hr 10/13/21 10/14/21 10/14/21 23:00 00:00 04:00 Temperature 98.5 F Pulse Rate 110 H 111 H Respiratory 20 Rate Blood Pressure 132/79 O2 Sat by Pulse 100 100 Oximetry 10/14/21 10/14/21 04:02 08:07 Temperature 98.3 F 98.0 F Pulse Rate 107 H 109 H Respiratory 20 18 Rate Blood Pressure 112/57 119/69 O2 Sat by Pulse 100 100 Oximetry General appearance: Present: no acute distress - EENT Eyes: EOM intact ENT: hearing intact - Neck Neck: supple, normal ROM - Respiratory Respiratory effort: normal Extremities: abnormal (Per HPI) - Gastrointestinal General gastrointestinal: Present: deferred Rectal Exam: deferred - Genitourinary Female genitourinary: deferred - Psychiatric Psychiatric: appropriate mood/affect, cooperative - Labs CBC & Chem 7: 10/14/21 05:20 10/14/21 05:20 Labs: Abnormal lab results 10/13/21 10/13/21 10/13/21 Range/Units 11:27 16:21 21:02 RBC (3.65-5.03) M/mm3 Hgb (10.1-14.3) gm/dl Hct (30.3-42.9) % Creatinine (0.6-1.2) mg/dL POC Glucose 241 H 163 H 170 H (70-105) mg/dL 10/14/21 10/14/21 10/14/21 Range/Units 05:20 05:20 08:06 RBC 2.50 L (3.65-5.03) M/mm3 Hgb 7.5 L (10.1-14.3) gm/dl Hct 22.2 L (30.3-42.9) % Creatinine 1.9 H (0.6-1.2) mg/dL POC Glucose 167 H (70-105) mg/dL Medications & Allergies - Medications Allergies/Adverse Reactions: Allergies latex Allergy (Verified 10/09/21 13:42) Swelling Home Medications: Home Medications Medication Instructions Recorded Confirmed Last Taken Type Insulin Glargine [Lantus VIAL] 8 units SUB-Q QHS 30 Days #3 ml 06/19/21 10/10/21 1 Day Ago Rx ~10/09/21 carvediloL [Coreg] 12.5 mg PO BID 30 Days #60 tablet 06/19/21 10/10/21 1 Day Ago Rx ~10/09/21 Metoclopramide [Reglan] 10 mg PO TID PRN #15 tab 07/09/21 10/10/21 1 Day Ago Rx ~10/09/21 Nitrofurantoin [place]/M-Cryst 100 mg PO Q12HR #14 capsule 07/09/21 10/10/21 1 Day Ago Rx [Macrobid CAP] ~10/09/21 Nitrofurantoin [place]/M-Cryst 100 mg PO Q12HR #14 capsule 08/12/21 10/10/21 1 Day Ago Rx [Macrobid CAP] ~10/09/21 Ondansetron [Zofran Odt] 4 mg PO Q8HR PRN #14 tab.rapdis 08/12/21 10/10/21 1 Day Ago Rx ~10/09/21 traMADoL [Ultram 50 MG tab] 50 mg PO Q4HR PRN #14 tablet 08/12/21 10/10/21 1 Day Ago Rx ~10/09/21 Active Medications: Generic Name Dose Route Start Last Admin Trade Name Freq PRN Reason Stop Dose Admin Acetaminophen 650 mg 10/09/21 17:16 Acetaminophen 325 Mg Tab PO Q4H PRN Pain MILD(1-3)/Fever >100.5/[place] Apixaban 5 mg 10/12/21 18:32 10/14/21 09:42 Apixaban 5 Mg Tab PO 5 mg BID CHUCK Administration Protocol Carvedilol 12.5 mg 10/09/21 22:00 10/14/21 09:43 Carvedilol 12.5 Mg Tab PO 12.5 mg BID CHUCK Administration Cilostazol 100 mg 10/12/21 22:00 10/14/21 09:42 Cilostazol 100 Mg Tab PO 100 mg BID CHUCK Administration Clopidogrel Bisulfate 75 mg 10/13/21 10:00 10/14/21 09:42 Clopidogrel 75 Mg Tab PO 75 mg QDAY CHUCK Administration Dextrose 0 ml 10/09/21 16:43 Dextrose 10% *Hypoglycemia IV PRN PRN Hypoglycemia Hydralazine HCl 10 mg 10/09/21 17:23 Hydralazine 20 Mg/1 Ml Inj IV Q6HR PRN Hypertension Hydromorphone HCl 0.5 mg 10/09/21 17:16 Hydromorphone 1 Mg/1 Ml Inj IV Q12H PRN Pain , Severe (7-10) Insulin Glargine 8 units 10/09/21 22:00 10/13/21 21:55 Insulin Glargine 100 Units/Ml SUB-Q 8 units QHS CHUCK Administration Insulin Human Lispro 0 unit 10/10/21 07:30 10/14/21 09:42 Insulin Lispro 100 Unit/Ml SUB-Q 3 unit ACHS CHUCK Administration Protocol Lisinopril 5 mg 10/09/21 17:23 10/14/21 09:42 Lisinopril 5 Mg Tab PO 5 mg QDAY CHUCK Administration Metoclopramide HCl 10 mg 10/09/21 17:24 Metoclopramide 10 Mg Tab PO TID PRN Nausea Ondansetron HCl 4 mg 10/09/21 17:16 10/13/21 09:02 Ondansetron 4 Mg/2 Ml Inj IV 4 mg Q8H PRN Administration Nausea And Vomiting Oxycodone/Acetaminophen 1 tab 10/09/21 17:16 10/14/21 08:01 Oxycodone /Acetaminophen 5-325mg Tab PO 1 tab Q8H PRN Administration Pain, Moderate (4-6) Pantoprazole Sodium 40 mg 10/12/21 19:00 10/14/21 08:01 Pantoprazole 40 Mg Tab PO 40 mg QDAC CHUCK Administration Sodium Chloride 10 ml 10/09/21 22:00 10/14/21 09:45 Sodium Chloride 0.9% 10 Ml Flush Syringe IV 10 ml BID CHUCK Administration Sodium Chloride 10 ml 10/09/21 17:16 Sodium Chloride 0.9% 10 Ml Flush Syringe IV PRN PRN LINE FLUSH HEART Score - HEART Score Troponin: Troponin T < 0.010 ng/mL (0.00-0.029) 10/09/21 14:48
[2021-10-14] MEDS ORDERED: SODIUM CHLORIDE 0.9% 1000 ML 1,000 ML IV SCH (15:45)
[2021-10-14] MEDS ORDERED: SODIUM CHLORIDE 0.9% 250ML 250 ML IV ONE (17:00)
[2021-10-14 21:11] LABS: Hematocrit 23.1 % (30.3-42.9); Hemoglobin 7.8 gm/dl (10.1-14.3)
[2021-10-14] MEDS: INSULIN GLARGINE 100 UNITS/ML SUB-Q SCH (22:00)
--- NOTE | 2021-10-15 09:05 | Progress Note ---
Assessment and Plan Assessment and plan: Acute kidney injury ; probably secondary to ATN worsening renal function ; Cr jumped from 1.4 -1.9 - 2.0-2.0 today In the setting of vascular procedures angiogram, Start IV normal saline, 250 mL normal saline fluid bolus. plenty of oral fluids, Monitor renal function , if no improvement consult nephrology Left lower extremity critical limb ischemia; s/p revascularization procedure 10/12/2021 2Lower extremity is warm to touch, unable to feel the pulses Ordered arterial Doppler, right BKA stump numbness/resolved today Bilateral lower extremity arterial Doppler 10/13/2021: occlusion of the right superficial femoral artery and near occlusion of the popliteal artery Left superficial femoral artery stent is patent, monophasic waveforms are noted throughout the left lower extremity Today patient's limb is warm to touch and palpable pedal pulses, vascular cleared the patient for discharge On Eliquis 5 mg twice a day and follow-up in 2 weeks in the office -- Peripheral vascular disease: Status post revascularization by vascular, currently on -- Hyperosmolar hyperglycemic state (HHS): Accu-Chek, sliding scale coverage , long-acting insulin therapy, IV fluid and supportive care Diabetic education, diabetic nutrition education prior to discharge Home health nurse for disease monitoring at discharge -- Hypertensive urgency: Present on admission Blood pressures well controlled today, continue current antihypertensives And as needed medications --Nicotine dependence: Smoking cessation counseling, nicotine patch as needed supportive care, behavior change counseling, +15 minutes. --DVT prophylaxis: SCD to bilateral lower extremities while in bed, Subcu heparin --Advance care planning: Disease education conducted, care plan discussed, diagnoses discussed, prognosis discussed, patient is full code. Patient acknowledges understanding agreement with care plan, +30 minutes. --Medical noncompliance : Patient counseled. Patient acknowledges understanding instructions. Patient states that she will attempt to be compliant with medication in the future. Patient requests cheaper insulin therapy. Due to difficulty with purchasing current regimen. Follow vascular procedures and vascular recommendations We will closely monitor the patient and adjust the management as needed . Daily clinical course: 10/10/21: No need for any surgical intervention by GS, plan for arterial duplex by vascular 10/11/21: She presented with complaints of a slow healing left leg ulcer. The patient also has cyanotic changes to her first and second toe. Per vascular need for an arterial duplex of the left leg to evaluate her arterial flow. Depending on the findings of the duplex further intervention will be discussed after the t esting. s/p arterial duplex of LE today, Suspect thrombotic left SFA lesion with subsequent distal embolization. Plan for revascularization tomorrow. NPO after MN except sips with meds. 10/12/21: Follow revascularization vascular procedures and vascular recommendations 10/13/2021; status post revascularization of the left lower extremity yesterday, sluggish pedal pulses, patient complains of right BKA stump numbness Follow bilateral arterial Doppler, Vascular following 10/14; vascular cleared for discharge however patient has worsening renal function creatinine 1.9, will start IV fluids Recommend plenty of oral fluids, and follow renal function, if starts trending down may discharge tomorrow with follow-up visit with nephrology 10/15; creatinine 2.0-2.0, continue IV fluids, consult nephrology . History Interval history: I have seen and examined the patient at the bedside Patient's chart and medications reviewed. Patient feels better however renal function worsening creatinine jumped up to 2.0 No new complaints Hospitalist Physical - Constitutional Vitals: Temp Pulse Resp BP Pulse Ox 97.9 F 111 H 16 117/65 98 10/15/21 08:06 10/15/21 08:06 10/15/21 08:06 10/15/21 08:06 10/15/21 08:06 General appearance: Present: no acute distress, well-nourished - EENT Eyes: Present: PERRL, EOM intact - Neck Neck: Present: supple, normal ROM - Respiratory Respiratory effort: normal Respiratory: bilateral: diminished, negative: rales, rhonchi, wheezing - Cardiovascular Rhythm: regular Heart Sounds: Present: S1 & S2 - Extremities Extremities: no ischemia, No edema - Abdominal General gastrointestinal: soft, non-tender, non-distended, normal bowel sounds - Integumentary Integumentary: Present: clear, warm - Psychiatric Psychiatric: appropriate mood/affect, cooperative - Neurologic Neurologic: CNII-XII intact, moves all extremities HEART Score - HEART Score Troponin: Troponin T < 0.010 ng/mL (0.00-0.029) 10/09/21 14:48 Results - Labs CBC & Chem 7: 10/14/21 20:53 10/15/21 05:33 Labs: Laboratory Last Values WBC 6.6 K/mm3 (4.5-11.0) 10/14/21 05:20 RBC 2.50 M/mm3 (3.65-5.03) L 10/14/21 05:20 Hgb 7.8 gm/dl (10.1-14.3) L 10/14/21 20:53 Hct 23.1 % (30.3-42.9) L 10/14/21 20:53 MCV 89 fl (79-97) 10/14/21 05:20 MCH 30 pg (28-32) 10/14/21 05:20 MCHC 34 % (30-34) 10/14/21 05:20 RDW 13.5 % (13.2-15.2) 10/14/21 05:20 Plt Count 255 K/mm3 (140-440) 10/14/21 05:20 Lymph % (Auto) 19.5 % (13.4-35.0) 10/13/21 05:15 Titus % (Auto) 8.5 % (0.0-7.3) H 10/13/21 05:15 Eos % (Auto) 2.9 % (0.0-4.3) 10/13/21 05:15 Baso % (Auto) 1.2 % (0.0-1.8) 10/13/21 05:15 Lymph # (Auto) 1.4 K/mm3 (1.2-5.4) 10/13/21 05:15 Titus # (Auto) 0.6 K/mm3 (0.0-0.8) 10/13/21 05:15 Eos # (Auto) 0.2 K/mm3 (0.0-0.4) 10/13/21 05:15 Baso # (Auto) 0.1 K/mm3 (0.0-0.1) 10/13/21 05:15 Seg Neutrophils % 67.9 % (40.0-70.0) 10/13/21 05:15 Seg Neutrophils # 4.9 K/mm3 (1.8-7.7) 10/13/21 05:15 PT 15.2 Sec. (12.2-14.9) H 10/12/21 23:06 INR 1.08 (0.87-1.13) 10/12/21 23:06 APTT 43.4 Sec. (24.2-36.6) H 10/12/21 23:06 VBG pH 7.271 (7.320-7.420) L 10/09/21 13:58 Sodium 138 mmol/L (137-145) 10/12/21 06:41 Potassium 4.2 mmol/L (3.6-5.0) 10/12/21 06:41 Chloride 103.1 mmol/L (98-107) 10/12/21 06:41 Carbon Dioxide 21 mmol/L (22-30) L 10/12/21 06:41 Anion Gap 18 mmol/L 10/12/21 06:41 BUN 11 mg/dL (7-17) 10/12/21 06:41 Creatinine 2.0 mg/dL (0.6-1.2) H 10/15/21 05:33 Estimated GFR 35 ml/min 10/15/21 05:33 BUN/Creatinine Ratio 9 % 10/12/21 06:41 Glucose 159 mg/dL (65-100) H 10/12/21 06:41 POC Glucose 159 mg/dL (70-105) H 10/15/21 08:09 Calcium 8.4 mg/dL (8.4-10.2) 10/12/21 06:41 Magnesium 1.90 mg/dL (1.7-2.3) 10/09/21 14:48 Total Bilirubin < 0.20 mg/dL (0.1-1.2) 10/09/21 13:58 AST 11 units/L (5-40) 10/09/21 13:58 ALT 9 units/L (7-56) 10/09/21 13:58 Alkaline Phosphatase 149 units/L (35-129) H 10/09/21 13:58 Troponin T < 0.010 ng/mL (0.00-0.029) 10/09/21 14:48 NT-Pro-B Natriuret Pep 408.9 pg/mL (0-450) 10/09/21 14:48 Total Protein 7.0 g/dL (6.3-8.2) 10/09/21 13:58 Albumin 3.8 g/dL (3.9-5) L 10/09/21 13:58 Albumin/Globulin Ratio 1.2 % 10/09/21 13:58 Lipase 51 units/L (13-60) 10/09/21 14:48 TSH 0.795 mlU/mL (0.270-4.200) 10/09/21 14:48 HCG, Qual Negative (Negative) 10/09/21 13:58 Urine Color Yellow (Yellow) 10/09/21 Unknown Urine Turbidity Clear (Clear) 10/09/21 Unknown Urine pH 7.0 (5.0-7.0) 10/09/21 Unknown Ur Specific Currie 1.013 (1.003-1.030) 10/09/21 Unknown Urine Protein 30 mg/dl mg/dL (Negative) 10/09/21 Unknown Urine Glucose (UA) >=500 mg/dL (Negative) 10/09/21 Unknown Urine Ketones Neg mg/dL (Negative) 10/09/21 Unknown Urine Blood Sm (Negative) 10/09/21 Unknown Urine Nitrite Neg (Negative) 10/09/21 Unknown Urine Bilirubin Neg (Negative) 10/09/21 Unknown Urine Urobilinogen < 2.0 mg/dL (<2.0) 10/09/21 Unknown Ur Leukocyte Esterase Sm (Negative) 10/09/21 Unknown Urine WBC (Auto) 33.0 /HPF (0.0-6.0) H 10/09/21 Unknown Urine RBC (Auto) 2.0 /HPF (0.0-6.0) 10/09/21 Unknown U Epithel Cells (Auto) 3.0 /HPF (0-13.0) 10/09/21 Unknown Urine Bacteria (Auto) 1+ /HPF (Negative) 10/09/21 Unknown Urine Mucus Few /HPF 10/09/21 Unknown Urine Opiates Screen Negative 10/09/21 Unknown Urine Methadone Screen Negative 10/09/21 Unknown Ur Barbiturates Screen Negative 10/09/21 Unknown Ur Phencyclidine Scrn Negative 10/09/21 Unknown Ur Amphetamines Screen Negative 10/09/21 Unknown U Benzodiazepines Scrn Negative 10/09/21 Unknown Urine Cocaine Screen Negative 10/09/21 Unknown U Marijuana (THC) Screen Positive 10/09/21 Unknown Drugs of Abuse Note Disclamer 10/09/21 Unknown Plasma/Serum Alcohol < 0.01 % (0-0.07) 10/09/21 14:48 Microbiology: Microbiology 10/09/21 14:48 Peripheral/Venous Blood Culture - Final NO GROWTH AFTER 5 DAYS 10/09/21 14:48 Peripheral/Venous Blood Culture - Final NO GROWTH AFTER 5 DAYS Hickman/IV: Voiding Method Toilet Active Medications - Current Medications Current Medications: Generic Name Dose Route Start Last Admin Trade Name Freq PRN Reason Stop Dose Admin Acetaminophen 650 mg 10/09/21 17:16 Acetaminophen 325 Mg Tab PO Q4H PRN Pain MILD(1-3)/Fever >100.5/[place] Apixaban 5 mg 10/12/21 18:32 10/14/21 22:00 Apixaban 5 Mg Tab PO 5 mg BID [facility] Administration Protocol Carvedilol 12.5 mg 10/09/21 22:00 10/14/21 20:00 Carvedilol 12.5 Mg Tab PO 12.5 mg BID CHUCK Administration Cilostazol 100 mg 10/12/21 22:00 10/14/21 22:00 Cilostazol 100 Mg Tab PO 100 mg BID CHUCK Administration Clopidogrel Bisulfate 75 mg 10/13/21 10:00 10/14/21 09:42 Clopidogrel 75 Mg Tab PO 75 mg QDAY [facility] Administration Dextrose 0 ml 10/09/21 16:43 Dextrose 10% *Hypoglycemia IV PRN PRN Hypoglycemia Hydralazine HCl 10 mg 10/09/21 17:23 Hydralazine 20 Mg/1 Ml Inj IV Q6HR PRN Hypertension Hydromorphone HCl 0.5 mg 10/09/21 17:16 Hydromorphone 1 Mg/1 Ml Inj IV Q12H PRN Pain , Severe (7-10) Sodium Chloride 1,000 mls @ 100 mls/hr 10/14/21 15:45 Nacl 0.9% 1000 Ml IV DIRECT [facility] Insulin Glargine 8 units 10/09/21 22:00 10/14/21 22:00 Insulin Glargine 100 Units/Ml SUB-Q 8 units QHS [facility] Administration Insulin Human Lispro 0 unit 10/10/21 07:30 10/14/21 22:00 Insulin Lispro 100 Unit/Ml SUB-Q Not Given ACHS [facility] Protocol Lisinopril 5 mg 10/09/21 17:23 10/14/21 09:42 Lisinopril 5 Mg Tab PO 5 mg QDAY [facility] Administration Metoclopramide HCl 10 mg 10/09/21 17:24 Metoclopramide 10 Mg Tab PO TID PRN Nausea Ondansetron HCl 4 mg 10/09/21 17:16 10/13/21 09:02 Ondansetron 4 Mg/2 Ml Inj IV 4 mg Q8H PRN Administration Nausea And Vomiting Oxycodone/Acetaminophen 1 tab 10/09/21 17:16 10/14/21 17:48 Oxycodone /Acetaminophen 5-325mg Tab PO 1 tab Q8H PRN Administration Pain, Moderate (4-6) Pantoprazole Sodium 40 mg 10/14/21 22:00 10/14/21 22:00 Pantoprazole 40 Mg Tab PO 40 mg BID CHUCK Administration Sodium Chloride 10 ml 10/09/21 22:00 10/14/21 22:00 Sodium Chloride 0.9% 10 Ml Flush Syringe IV 10 ml BID CHUCK Administration Sodium Chloride 10 ml 10/09/21 17:16 Sodium Chloride 0.9% 10 Ml Flush Syringe IV PRN PRN LINE FLUSH Nutrition/Malnutrition Assess - Dietary Evaluation Nutrition/Malnutrition Findings: Nutrition Notes Start: 10/10/21 14:39 Freq: Status: Active Protocol: Document 10/10/21 14:40 MERCED (Rec: 10/10/21 14:49 MERCED [email or web address]) Nutrition Notes Need for Assessment generated from: MD Order,Education Initial or Follow up Brief Note Current Diagnosis Diabetes,Hypertension Other Pertinent Diagnosis Chronic L-Foot Ulcer, PVD s/p R-BKA, Asthma. Current Diet Cardiac/Consistent Carbohydrates Diet (since D ). Height 5 ft 4 in Weight 72.7 kg Morrice Body Weight (kg) 54.54 BMI 27.5 Intake Prior to Admission Good Weight change and time frame Pt denies having loss body weight recently. Weight Status Overweight Subjective/Other Information RD consult for Nutrition Education. No reports available on Pt's PO intake of meals at the time . Pt still on ED, not a candidate for Nutrition Education at the time, will assess feasibility on F/U. Percent of energy/protein needs met: Prescribed Cardiac/Consistent Carbohydrates Diet provides for energy/protein needs (1, 977 Kcal/86 g) during LOS. Nutrition Intervention Follow-Up By: 10/15/21 Additional Comments Nutrition education will be provided on F/U, if feasible. Continue monitoring food tolerance, %PO intake of meals , and BM.
[2021-10-15] MEDS: INSULIN LISPRO 100 UNIT/ML SUB-Q SCH ×4 (09:14→22:24)
[2021-10-15] MEDS: CILOSTAZOL 100 MG TAB PO SCH ×2 (09:14→22:23)
[2021-10-15] MEDS: CLOPIDOGREL 75 MG TAB PO SCH (09:15)
[2021-10-15] MEDS: APIXABAN 5 MG TAB PO SCH ×2 (09:15→22:23)
[2021-10-15] MEDS: carvediloL 12.5 MG TAB PO SCH ×2 (09:15→22:23)
[2021-10-15] MEDS: LISINOPRIL 5 MG TAB PO SCH (09:15)
[2021-10-15] MEDS: PANTOPRAZOLE 40 MG TAB PO SCH ×2 (09:15→22:29)
--- NOTE | 2021-10-15 13:54 | Consultation ---
History of Present Illness - Reason for Consult Consult date: 10/15/21 acute renal failure - History of Present Illness The patient is a 31 YO female with history of HTN, DM, OA, Mild Intermittent Asthma, PVD s/p Right BKA, Nicotine Dependence, Chronic Left foot ulcer and CKD who presented to [facility] 10/09 for evaluation nonhealing L foot ulcer. Patient reports that she has experienced swelling as well as discoloration to her toes. Patient knowledges medication noncompliance. Patient states that she ran out of her antihypertensive medication approximately 1 month ago, and has been unable to purchase her insulin and has experienced elevated glucose levels. Patient denies fever, chills, chest pain, palpitation, cough, skin rash, sick contact and known exposure to COVID-19. On further evaluation she was found to have hyperosmolar hyperglycemic state, urinary tract infection and volume depletion. Patient ws seen by Vascular surgery and General surgery. Intermittent hypotension noted. Creatinine level remains around 2. Nephrology was consulted for further evaluation and treatment of BREANNE. Past History Past Medical History: arthritis, diabetes, hypertension, PVD Past Surgical History: Other (Right lower extremity angioplasty and stenting, right BKA) Social history: single, smoking Medications and Allergies Allergies Allergy/AdvReac Type Severity Reaction Status Date / Time latex Allergy Swelling Verified 10/09/21 13:42 Home Medications Medication Instructions Recorded Confirmed Last Taken Type Apixaban [Eliquis] 5 mg PO BID #60 10/14/21 Unknown Rx oxyCODONE /ACETAMINOPHEN [Percocet 1 tab PO Q6HR PRN #20 tablet 10/14/21 Unknown Rx 5/325] Clopidogrel [Plavix] 75 mg PO QDAY #30 tablet 10/16/21 Unknown Rx Insulin Glargine [Lantus VIAL] 8 units SUB-Q QHS 30 Days #2 vial 10/16/21 Unknown Rx Lispro Insulin [HumaLOG] 2 unit SUB-Q ACHS 30 Days #2 vial 10/16/21 Unknown Rx Ondansetron [Zofran ODT TAB] 4 mg PO Q8HR PRN #14 tab.rapdis 10/16/21 Unknown Rx Pantoprazole [Protonix TAB] 40 mg PO BID #30 tablet 10/16/21 Unknown Rx carvediloL [Coreg] 12.5 mg PO BID 30 Days #60 tablet 10/16/21 Unknown Rx cilostazoL [Pletal] 100 mg PO BID #60 tablet 10/16/21 Unknown Rx Active Meds: Active Medications Acetaminophen (Acetaminophen 325 Mg Tab) 650 mg PO Q4H PRN PRN Reason: Pain MILD(1-3)/Fever >100.5/[place] Apixaban (Apixaban 5 Mg Tab) 5 mg PO BID [facility]; Protocol Last Admin: 10/15/21 09:15 Dose: 5 mg Carvedilol (Carvedilol 12.5 Mg Tab) 12.5 mg PO BID [facility] Last Admin: 10/15/21 09:15 Dose: 12.5 mg Cilostazol (Cilostazol 100 Mg Tab) 100 mg PO BID [facility] Last Admin: 10/15/21 09:14 Dose: 100 mg Clopidogrel Bisulfate (Clopidogrel 75 Mg Tab) 75 mg PO QDAY [facility] Last Admin: 10/15/21 09:15 Dose: 75 mg Dextrose (Dextrose 10% *Hypoglycemia) 0 ml IV PRN PRN PRN Reason: Hypoglycemia Hydralazine HCl (Hydralazine 20 Mg/1 Ml Inj) 10 mg IV Q6HR PRN PRN Reason: Hypertension Hydromorphone HCl (Hydromorphone 1 Mg/1 Ml Inj) 0.5 mg IV Q12H PRN PRN Reason: Pain , Severe (7-10) Sodium Chloride (Nacl 0.9% 1000 Ml) 1,000 mls @ 100 mls/hr IV DIRECT [facility] Insulin Glargine (Insulin Glargine 100 Units/Ml) 8 units SUB-Q QHS [facility] Last Admin: 10/14/21 22:00 Dose: 8 units Insulin Human Lispro (Insulin Lispro 100 Unit/Ml) 0 unit SUB-Q ACHS [facility]; Protocol Last Admin: 10/15/21 12:56 Dose: 4 unit Lisinopril (Lisinopril 5 Mg Tab) 5 mg PO QDAY [facility] Last Admin: 10/15/21 09:15 Dose: 5 mg Metoclopramide HCl (Metoclopramide 10 Mg Tab) 10 mg PO TID PRN PRN Reason: Nausea Ondansetron HCl (Ondansetron 4 Mg/2 Ml Inj) 4 mg IV Q8H PRN PRN Reason: Nausea And Vomiting Last Admin: 10/13/21 09:02 Dose: 4 mg Oxycodone/Acetaminophen (Oxycodone /Acetaminophen 5-325mg Tab) 1 tab PO Q8H PRN PRN Reason: Pain, Moderate (4-6) Last Admin: 10/14/21 17:48 Dose: 1 tab Pantoprazole Sodium (Pantoprazole 40 Mg Tab) 40 mg PO BID [facility] Last Admin: 10/15/21 09:15 Dose: 40 mg Sodium Chloride (Sodium Chloride 0.9% 10 Ml Flush Syringe) 10 ml IV BID [facility] Last Admin: 10/15/21 09:25 Dose: Not Given Sodium Chloride (Sodium Chloride 0.9% 10 Ml Flush Syringe) 10 ml IV PRN PRN PRN Reason: LINE FLUSH Exam - Vital Signs Vital signs: Vital Signs Temp Pulse Resp BP Pulse Ox 98.4 F 109 H 20 207/96 100 10/09/21 13:42 10/09/21 13:42 10/09/21 13:42 10/09/21 13:42 10/09/21 13:42 Results - Lab Results 10/16/21 13:06 10/16/21 13:06 Most recent lab results Calcium 8.4 mg/dL (8.4-10.2) 10/12/21 06:41 Magnesium 1.90 mg/dL (1.7-2.3) 10/09/21 14:48 Assessment and Plan 1. Acute kidney injury: Vasomotor BREANNE superimposed on CKD in the setting of uncontrolled DM. Urine studies and Renal US ordered. Monitor renal function. Creatinine leveled off. Started on IV fluids. Avoid nephrotoxic agents. Meds dosage based on GFR. 2. FEN: Monitor lytes and volume status. 3. PAD, Left lower extremity critical limb ischemia: Bilateral lower extremity arterial Doppler showed occlusion of the right superficial femoral artery and near occlusion of the popliteal artery Left superficial femoral artery stent is patent, monophasic waveforms are noted throughout the left lower extremity. S/p revascularization procedure 10/12/2021. On Eliquis 5 mg twice a day. 4. Hyperosmolar hyperglycemic state (HHS): Improved. Accu-Chek, sliding scale coverage , long-acting insulin therapy, Supportive care. Diabetic education, diabetic nutrition education prior to discharge. 5. Hypertensive urgency, POA: BP is better. 6. Nicotine dependence: Smoking cessation counseling, nicotine patch as needed. 7. Medical noncompliance: Counseled. Subjective: Patient was seen and examined at the bedside. Nurse at the bedside. Examination: General appearance: well-developed, appears stated age, not in distress, on RA HEENT: atraumatic, CASSIE Neck: trachea midline Respiratory: ctab Heart: S1S2, regular, no murmur Abdomen: soft, bowel sounds heard, NT Integumentary: L foot wound Neurologic: AO, able to move extremities Ext: no edema noted, R BKA
[2021-10-15 14:52] LABS: Heparin-Induced Platelet Antib Negative (Negative); Unfractionated Heparin Negative (Negative)
[2021-10-15] MEDS: INSULIN GLARGINE 100 UNITS/ML SUB-Q SCH (22:23)
[2021-10-15] MEDS: oxyCODONE /ACETAMINOPHEN 5-325MG TAB PO PRN (22:33)
[2021-10-16 05:20] LABS: Hematocrit 20.2 % (30.3-42.9); Hemoglobin 6.9 gm/dl (10.1-14.3); Mean Corpuscular HGB Conc 34 % (30-34); Mean Corpuscular Volume 90 fl (79-97); Platelet Count 232 K/mm3 (140-440); Red Blood Count 2.24 M/mm3 (3.65-5.03); Red Cell Distribution Width 14.2 % (13.2-15.2)
[2021-10-16] MEDS: INSULIN LISPRO 100 UNIT/ML SUB-Q SCH ×3 (09:16→16:52)
[2021-10-16] MEDS: CILOSTAZOL 100 MG TAB PO SCH (09:17)
[2021-10-16] MEDS: PANTOPRAZOLE 40 MG TAB PO SCH (09:18)
[2021-10-16] MEDS: APIXABAN 5 MG TAB PO SCH (09:18)
[2021-10-16] MEDS: carvediloL 12.5 MG TAB PO SCH (09:18)
[2021-10-16] MEDS: CLOPIDOGREL 75 MG TAB PO SCH (09:18)
[2021-10-16] MEDS: oxyCODONE /ACETAMINOPHEN 5-325MG TAB PO PRN (11:22)
[2021-10-16 13:01] LABS: Creatinine,Urine 55.6 mg/dL (0.1-20.0)
--- NOTE | 2021-10-16 13:50 | Progress Note ---
Subjective Date of service: 10/16/21 Principal diagnosis: PVD with gangrene Objective - Vital Signs Vital signs: Vital Signs - 12hr 10/16/21 10/16/21 10/16/21 03:43 08:13 11:39 Temperature 97.6 F 98.5 F 98.3 F Pulse Rate 115 H 117 H 113 H Respiratory 16 18 16 Rate Blood Pressure 121/62 117/67 132/72 O2 Sat by Pulse 100 100 100 Oximetry 10/16/21 12:00 Temperature Pulse Rate Respiratory 18 Rate Blood Pressure O2 Sat by Pulse 97 Oximetry - Lab 10/16/21 05:02 10/15/21 05:33 Most recent lab results Calcium 8.4 mg/dL (8.4-10.2) 10/12/21 06:41 Magnesium 1.90 mg/dL (1.7-2.3) 10/09/21 14:48 Urine Creatinine 55.6 mg/dL (0.1-20.0) H 10/16/21 Unknown Urine Sodium 56 mmol/L 10/16/21 Unknown Medications & Allergies - Medications Allergies/Adverse Reactions: Allergies latex Allergy (Verified 10/09/21 13:42) Swelling Home Medications: Home Medications Medication Instructions Recorded Confirmed Last Taken Type Insulin Glargine [Lantus VIAL] 8 units SUB-Q QHS 30 Days #3 ml 06/19/21 10/10/21 1 Day Ago Rx ~10/09/21 carvediloL [Coreg] 12.5 mg PO BID 30 Days #60 tablet 06/19/21 10/10/21 1 Day Ago Rx ~10/09/21 Metoclopramide [Reglan] 10 mg PO TID PRN #15 tab 07/09/21 10/10/21 1 Day Ago Rx ~10/09/21 Nitrofurantoin [place]/M-Cryst 100 mg PO Q12HR #14 capsule 07/09/21 10/10/21 1 Day Ago Rx [Macrobid CAP] ~10/09/21 Nitrofurantoin [place]/M-Cryst 100 mg PO Q12HR #14 capsule 08/12/21 10/10/21 1 Day Ago Rx [Macrobid CAP] ~10/09/21 Ondansetron [Zofran Odt] 4 mg PO Q8HR PRN #14 tab.rapdis 08/12/21 10/10/21 1 Day Ago Rx ~10/09/21 traMADoL [Ultram 50 MG tab] 50 mg PO Q4HR PRN #14 tablet 08/12/21 10/10/21 1 Day Ago Rx ~10/09/21 Apixaban [Eliquis] 5 mg PO BID #60 10/14/21 Unknown Rx oxyCODONE /ACETAMINOPHEN [Percocet 1 tab PO Q6HR PRN #20 tablet 10/14/21 Unknown Rx 5/325] Active Medications: Generic Name Dose Route Start Last Admin Trade Name Freq PRN Reason Stop Dose Admin Acetaminophen 650 mg 10/09/21 17:16 Acetaminophen 325 Mg Tab PO Q4H PRN Pain MILD(1-3)/Fever >100.5/[place] Apixaban 5 mg 10/12/21 18:32 10/16/21 09:18 Apixaban 5 Mg Tab PO 5 mg BID [facility]UCK Administration Protocol Carvedilol 12.5 mg 10/09/21 22:00 10/16/21 09:18 Carvedilol 12.5 Mg Tab PO 12.5 mg BID [facility]UCK Administration Cilostazol 100 mg 10/12/21 22:00 10/16/21 09:17 Cilostazol 100 Mg Tab PO 100 mg BID [facility] Administration Clopidogrel Bisulfate 75 mg 10/13/21 10:00 10/16/21 09:18 Clopidogrel 75 Mg Tab PO 75 mg QDAY [facility] Administration Dextrose 0 ml 10/09/21 16:43 Dextrose 10% *Hypoglycemia IV PRN PRN Hypoglycemia Hydralazine HCl 10 mg 10/09/21 17:23 Hydralazine 20 Mg/1 Ml Inj IV Q6HR PRN Hypertension Hydromorphone HCl 0.5 mg 10/09/21 17:16 Hydromorphone 1 Mg/1 Ml Inj IV Q12H PRN Pain , Severe (7-10) Sodium Chloride 1,000 mls @ 100 mls/hr 10/14/21 15:45 Nacl 0.9% 1000 Ml IV DIRECT [facility]UCK Sodium Chloride 500 mls @ 0 mls/hr 10/16/21 14:00 Nacl 0.9% 500 Ml IV 10/16/21 14:01 ONCE ONE As Directed Insulin Glargine 8 units 10/09/21 22:00 10/15/21 22:23 Insulin Glargine 100 Units/Ml SUB-Q 8 units QHS [facility] Administration Insulin Human Lispro 0 unit 10/10/21 07:30 10/16/21 09:16 Insulin Lispro 100 Unit/Ml SUB-Q Not Given ACHS [facility] Protocol Metoclopramide HCl 10 mg 10/09/21 17:24 Metoclopramide 10 Mg Tab PO TID PRN Nausea Ondansetron HCl 4 mg 10/09/21 17:16 10/13/21 09:02 Ondansetron 4 Mg/2 Ml Inj IV 4 mg Q8H PRN Administration Nausea And Vomiting Oxycodone/Acetaminophen 1 tab 10/09/21 17:16 10/16/21 11:22 Oxycodone /Acetaminophen 5-325mg Tab PO 1 tab Q8H PRN Administration Pain, Moderate (4-6) Pantoprazole Sodium 40 mg 10/14/21 22:00 10/16/21 09:18 Pantoprazole 40 Mg Tab PO 40 mg BID [facility] Administration Sodium Chloride 10 ml 10/09/21 22:00 10/16/21 09:18 Sodium Chloride 0.9% 10 Ml Flush Syringe IV 10 ml BID [facility] Administration Sodium Chloride 10 ml 10/09/21 17:16 Sodium Chloride 0.9% 10 Ml Flush Syringe IV PRN PRN LINE FLUSH
[2021-10-16] MEDS ORDERED: SODIUM CHLORIDE 0.9% 500 ML 500 ML IV ONE (14:00)
[2021-10-16 14:01] LABS: Hematocrit 25.3 % (30.3-42.9); Hemoglobin 8.2 gm/dl (10.1-14.3)
[2021-10-16 14:28] LABS: Calcium 8.9 mg/dL (8.4-10.2)
--- NOTE | 2021-10-16 14:53 | Discharge Summary ---
Providers - Providers Date of Admission: 10/09/21 17:16 Date of discharge: 10/16/21 Attending physician: JULIOCESAR TSAI 10/09/21 16:46 Consult to Physician [CONS] Urgent Comment: Consulting Provider: DANIA BEDOYA Physician Instructions: Reason For Exam: dusky left toes Consult to Physician [CONS] Urgent Comment: Consulting Provider: NNAMDI KHAN Physician Instructions: Reason For Exam: diabetic wound 10/15/21 13:27 Consult to Physician [CONS] Routine Comment: Consulting Provider: IRMA NAGEL Physician Instructions: Reason For Exam: Acute kidney injury/post vascular procedure Hospitalization Reason for admission: Peripheral vascular disease/low healing of lt lower extremity diab. ulcer Condition: Stable Pertinent studies: Bilateral lower extremity arterial Doppler 10/13/2021: occlusion of the right superficial femoral artery and near occlusion of the popliteal artery Left superficial femoral artery stent is patent, monophasic waveforms are noted throughout the left lower extremity Procedures: s/p revascularization procedure 10/12/2021 Hospital course: Acute kidney injury ; probably secondary to ATN worsening renal function ; Cr jumped from 1.4 -1.9 - 2.0-2.0 today In the setting of vascular procedures angiogram, Start IV normal saline, 250 mL normal saline fluid bolus. plenty of oral fluids, Monitor renal function , if no improvement consult nephrology Left lower extremity critical limb ischemia; s/p revascularization procedure 10/12/2021 2Lower extremity is warm to touch, unable to feel the pulses Ordered arterial Doppler, right BKA stump numbness/resolved today Bilateral lower extremity arterial Doppler 10/13/2021: occlusion of the right superficial femoral artery and near occlusion of the popliteal artery Left superficial femoral artery stent is patent, monophasic waveforms are noted throughout the left lower extremity Today patient's limb is warm to touch and palpable pedal pulses, vascular cleared the patient for discharge On Eliquis 5 mg twice a day and follow-up in 2 weeks in the office -- Peripheral vascular disease: Status post revascularization by vascular, currently on -- Hyperosmolar hyperglycemic state (HHS): Accu-Chek, sliding scale coverage , long-acting insulin therapy, IV fluid and supportive care Diabetic education, diabetic nutrition education prior to discharge Home health nurse for disease monitoring at discharge -- Hypertensive urgency: Present on admission Blood pressures well controlled today, continue current antihypertensives And as needed medications --Nicotine dependence: Smoking cessation counseling, nicotine patch as needed supportive care, behavior change counseling, +15 minutes.s Disposition: HOME HEALTH CARE SERVICE Final Discharge Diagnosis (Prints w/discharge instructions): Left lower extremity critical limb ischemia. Status post revascularization procedure. Peripheral vascular disease. History of right BKA. Hyperosmolar hyperglycemic state resolved. Type 2 diabetes mellitus. Hypertensive urgency resolved. Ongoing tobacco use. Acute kidney injury due to ATN Time spent for discharge: 45 min Core Measure Documentation - Palliative Care Palliative Care/ Comfort Measures: Not Applicable - Core Measures Any of the following diagnoses?: none Exam - Constitutional Vitals: Temp Pulse Resp BP Pulse Ox 98.3 F 113 H 18 132/72 97 10/16/21 11:39 10/16/21 11:39 10/16/21 12:00 10/16/21 11:39 10/16/21 12:00 General appearance: Present: no acute distress, well-nourished - EENT Eyes: Present: PERRL, EOM intact - Neck Neck: Present: supple, normal ROM - Respiratory Respiratory effort: normal Respiratory: bilateral: diminished, negative: rales, rhonchi, wheezing - Cardiovascular Rhythm: regular Heart Sounds: Present: S1 & S2 - Extremities Extremities: no ischemia, No edema, abnormal (Right BKA) - Abdominal General gastrointestinal: Present: soft, non-tender, non-distended, normal bowel sounds - Integumentary Integumentary: Present: clear, warm - Musculoskeletal Musculoskeletal: other (Right BKA) - Psychiatric Psychiatric: appropriate mood/affect, cooperative - Neurologic Neurologic: moves all extremities Plan Activity: advance as tolerated, fall precautions Diet: diabetic, other (Cardiac diet) Durable Medical Equipment Needed Upon Discharge: Bedside Commode Additional Instructions: Advised to comply with all the medications and follow- up visits. Advised to follow primary care physician, vascular surgeon and process machine operator per schedule. If you have worsening symptoms contact MD or go to the nearest emergency room as needed. If you notice any bleeding contact MD or go to the nearest emergency room as needed Follow up with: [facility] [Other] - 3-5 Days IRMA NAGEL MD [Staff Physician] - 7 Days TEETEE OSULLIVAN MD [Staff Physician] - 7 Days Prescriptions: carvediloL [Coreg] 12.5 mg PO BID 30 Days #60 tablet Apixaban [Eliquis] 5 mg PO BID #60 Lispro Insulin [HumaLOG] 2 unit SUB-Q ACHS 30 Days #2 vial Insulin Glargine [Lantus VIAL] 8 units SUB-Q QHS 30 Days #2 vial oxyCODONE /ACETAMINOPHEN [Percocet 5/325] 1 tab PO Q6HR PRN #20 tablet PRN Reason: Pain Clopidogrel [Plavix] 75 mg PO QDAY #30 tablet cilostazoL [Pletal] 100 mg PO BID #60 tablet Pantoprazole [Protonix TAB] 40 mg PO BID #30 tablet Ondansetron [Zofran ODT TAB] 4 mg PO Q8HR PRN #14 tab.rapdis PRN Reason: Nausea And Vomiting
[2021-10-16 17:13] VITALS: BP 113/64
== END 2021-10-16 19:13 | disposition home health service (06) | DRG 270 ==
LOC: ED 13:04 → 4A 17:16
PROVIDERS: ADMIT Internal Medicine; ATTEND Internal Medicine
PROC: 047L3FZ Dilation of Left Femoral Artery with Three Intraluminal Devices, Percutaneous Approach (ICD-10-PCS; principal; 2021-10-12)
PROC: 047N3ZZ Dilation of Left Popliteal Artery, Percutaneous Approach (ICD-10-PCS; 2021-10-12)
PROC: 04CL3ZZ Extirpation of Matter from Left Femoral Artery, Percutaneous Approach (ICD-10-PCS; 2021-10-12)
PROC: 04CN3ZZ Extirpation of Matter from Left Popliteal Artery, Percutaneous Approach (ICD-10-PCS; 2021-10-12)
PROC: B41D1ZZ Fluoroscopy of Aorta and Bilateral Lower Extremity Arteries using Low Osmolar Contrast (ICD-10-PCS; 2021-10-12)
DX: E11.51 Type 2 diabetes mellitus with diabetic peripheral angiopathy without gangrene (principal); N17.0 Acute kidney failure with tubular necrosis; N39.0 Urinary tract infection, site not specified; F17.213 Nicotine dependence, cigarettes, with withdrawal; E11.00 Type 2 diabetes mellitus with hyperosmolarity without nonketotic hyperglycemic-hyperosmolar coma (NKHHC); I16.0 Hypertensive urgency; Z91.19 Patient's noncompliance with other medical treatment and regimen; M19.90 Unspecified osteoarthritis, unspecified site; J45.909 Unspecified asthma, uncomplicated; Z79.4 Long term (current) use of insulin; E11.621 Type 2 diabetes mellitus with foot ulcer; L97.529 Non-pressure chronic ulcer of other part of left foot with unspecified severity; Z71.6 Tobacco abuse counseling; N18.9 Chronic kidney disease, unspecified; E11.22 Type 2 diabetes mellitus with diabetic chronic kidney disease; Z91.040 Latex allergy status; Z89.511 Acquired absence of right leg below knee
CPT/HCPCS: 36415; 37184; 37227; 71045; 75625; 75710; 76937; 80048; 80053; 80307; 80320; 81001; 82565; 82570; 82805; 82962; 83690; 83735; 83880; 84300; 84443; 84484; 84703; 85014; 85018; 85025; 85027; 85610; 85730; 86022; 86850; 86900; 86901; 86920; 87040; 87076; 87086; 87186; 93005; 93010; 93922; 93925; G0378; J3490; J7502; Q0162; Q9967; C1714; C1725; C1760; C1769; C1876; C1884; C1887; C2623; G0480; J0360; J0583; J0690; J0692; J1644; J1815; J2250; J2405; J3010; J3370; J7030; J7040; J7050

== ENCOUNTER 2021-12-11 01:28 | Emergency (ER) | payer MEDICARE ==
[2021-12-11 04:39] VITALS: BP 120/73
--- NOTE | 2021-12-11 05:13 | Emergency Department Report ---
ED Lower Extremity HPI - General Chief Complaint: Extremity Injury, Lower Stated Complaint: FOOT BLISTER Source: patient Mode of arrival: Ambulatory Limitations: No Limitations - History of Present Illness Initial Comments: Patient is a 31-year-old -[place] female with a history of ecn-ypycfjk-niadizzsf diabetes, hypertension, osteoarthritis, asthma, and chronic kidney disease and who is s/p right BKA presents to the ED with complaint of dorsal left foot pain with swelling and blisters on left great toe and second toe for over 8 hours after being on her feet while mowing the lawn repeatedly about 8 hours ago. Patient states that the blisters have increased in size in the last 4 hours. Patient denies fall, traumatic injury, burn injury, chest pain or shortness of breath, fever, chills, nausea and vomiting, numbness and tingling or weakness of lower extremities bilaterally or low back pain. MD Complaint: foot injury (Left foot pain with blisters) -: Sudden, hour(s) (8) Injury: Foot: Left (Dorsal left foot pain and great toe and 2nd toe blister) Type of Injury: unknown Place: home Severity: moderate Severity scale (0 -10): 4 Improves With: nothing Worsens With: weight bearing, movement, palpation Context: walking Associated Symptoms: denies: snap/pop sensation, swelling, numbness, tingling, unable to bear weight, able to partially bear weight, ambulatory - Related Data Previous Rx's Medication Instructions Recorded Last Taken Type Apixaban [Eliquis] 5 mg PO BID #60 10/14/21 Unknown Rx oxyCODONE /ACETAMINOPHEN [Percocet 1 tab PO Q6HR PRN #20 tablet 10/14/21 Unknown Rx 5/325] Insulin Glargine [Lantus VIAL] 8 units SUB-Q QHS 30 Days #2 vial 10/16/21 Unknown Rx Lispro Insulin [HumaLOG] 2 unit SUB-Q ACHS 30 Days #2 vial 10/16/21 Unknown Rx Ondansetron [Zofran ODT TAB] 4 mg PO Q8HR PRN #14 tab.rapdis 10/16/21 Unknown Rx Pantoprazole [Protonix TAB] 40 mg PO BID #30 tablet 10/16/21 Unknown Rx cilostazoL [Pletal] 100 mg PO BID #60 tablet 10/16/21 Unknown Rx Clopidogrel [Plavix] 75 mg PO QDAY #30 tablet 12/11/21 Unknown Rx Mupirocin [Bactroban 2% OINT] 1 applic TP TID #1 tube 12/11/21 Unknown Rx Sulfamethoxazole/Trimethoprim 1 each PO Q12H #20 tab 12/11/21 Unknown Rx [Bactrim DS TAB] carvediloL [Coreg] 12.5 mg PO BID 30 Days #60 tablet 12/11/21 Unknown Rx Allergies Allergy/AdvReac Type Severity Reaction Status Date / Time latex Allergy Swelling Verified 10/09/21 13:42 ED Review of Systems ROS: Stated complaint: FOOT BLISTER Other details as noted in HPI Constitutional: denies: chills, fever Eyes: denies: eye pain, eye discharge, vision change ENT: denies: ear pain, throat pain Respiratory: denies: cough, shortness of breath, wheezing Cardiovascular: denies: chest pain, palpitations Endocrine: no symptoms reported Gastrointestinal: denies: abdominal pain, nausea, diarrhea Genitourinary: denies: urgency, dysuria, discharge Musculoskeletal: arthralgia (Dorsal left foot pain, swelling; dorsal left great toe, second toe and third toe swelling with blisters). denies: back pain, joint swelling Skin: other (Blistered painful swelling on dorsal left foot, dorsal left great toe, second toe and third toe). denies: rash, lesions Neurological: denies: headache, weakness, paresthesias Psychiatric: denies: anxiety, depression Hematological/Lymphatic: denies: easy bleeding, easy bruising ED Past Medical Hx - Past Medical History Hx Hypertension: Yes Hx Congestive Heart Failure: No Hx Diabetes: Yes Hx Renal Disease: Yes (CKD) Hx Arthritis: Yes (knees) Hx Asthma: Yes Hx COPD: No Hx HIV: No - Surgical History Additional Surgical History: right bka 2017 - Social History Smoking Status: Former Smoker Substance Use Type: None - Medications Home Medications: Home Medications Medication Instructions Recorded Confirmed Last Taken Type Apixaban [Eliquis] 5 mg PO BID #60 10/14/21 Unknown Rx oxyCODONE /ACETAMINOPHEN [Percocet 1 tab PO Q6HR PRN #20 tablet 10/14/21 Unknown Rx 5/325] Insulin Glargine [Lantus VIAL] 8 units SUB-Q QHS 30 Days #2 vial 10/16/21 Unknown Rx Lispro Insulin [HumaLOG] 2 unit SUB-Q ACHS 30 Days #2 vial 10/16/21 Unknown Rx Ondansetron [Zofran ODT TAB] 4 mg PO Q8HR PRN #14 tab.rapdis 10/16/21 Unknown Rx Pantoprazole [Protonix TAB] 40 mg PO BID #30 tablet 10/16/21 Unknown Rx cilostazoL [Pletal] 100 mg PO BID #60 tablet 10/16/21 Unknown Rx Clopidogrel [Plavix] 75 mg PO QDAY #30 tablet 12/11/21 Unknown Rx Mupirocin [Bactroban 2% OINT] 1 applic TP TID #1 tube 12/11/21 Unknown Rx Sulfamethoxazole/Trimethoprim 1 each PO Q12H #20 tab 12/11/21 Unknown Rx [Bactrim DS TAB] carvediloL [Coreg] 12.5 mg PO BID 30 Days #60 tablet 12/11/21 Unknown Rx ED Physical Exam - General Limitations: No Limitations General appearance: alert, in no apparent distress - Head Head exam: Present: atraumatic, normocephalic, normal inspection - Eye Eye exam: Present: normal appearance, PERRL, EOMI Pupils: Present: normal accommodation - ENT ENT exam: Present: normal exam, normal orophraynx, mucous membranes moist, TM's normal bilaterally, normal external ear exam - Neck Neck exam: Present: normal inspection, full ROM. Absent: tenderness - Respiratory Respiratory exam: Present: normal lung sounds bilaterally. Absent: respiratory distress, wheezes, rales, rhonchi, chest wall tenderness, accessory muscle use, prolonged expiratory - Cardiovascular Cardiovascular Exam: Present: normal rhythm, tachycardia, normal heart sounds. Absent: systolic murmur, diastolic murmur, rubs, gallop - GI/Abdominal GI/Abdominal exam: Present: soft, normal bowel sounds. Absent: tenderness, guarding, rebound, hyperactive bowel sounds, organomegaly, mass - Extremities Exam Extremities exam: Present: normal inspection, full ROM, tenderness (Palpable dorsal left foot tenderness with swelling; blistered swollen tender dorsal left great toe, second toe and third toe), normal capillary refill, joint swelling. Absent: pedal edema, calf tenderness - Back Exam Back exam: Present: normal inspection, full ROM. Absent: tenderness, CVA tenderness (R), CVA tenderness (L), muscle spasm, paraspinal tenderness, vertebral tenderness - Neurological Exam Neurological exam: Present: alert, oriented X3, CN II-XII intact, normal gait, reflexes normal - Psychiatric Psychiatric exam: Present: normal affect, normal mood - Skin Skin exam: Present: warm, dry, intact, normal color, other (Blistered dorsal left great toe, left second toe and third toes). Absent: rash ED Course Vital Signs 12/11/21 04:13 Temperature 98.2 F Pulse Rate 107 H Respiratory 12 Rate Blood Pressure 120/73 O2 Sat by Pulse 100 Oximetry ED Lower Extremity MDM - Medical Decision Making This is a 31-year-old -[place] female with a history of non-insulin- dependent diabetes, hypertension, osteoarthritis, asthma, and chronic kidney disease and who is s/p right BKA presents to the ED with complaint of dorsal left foot pain with swelling and blisters on left great toe and second toe for over 8 hours after being on her feet while mowing the lawn repeatedly about 8 hours ago. Patient states that the blisters have increased in size in the last 4 hours. In the ED, patient is alert and oriented x3 and is not in any distress. Patient was discharged home on medications, had a medication refill and was advised to follow-up with her primary care physician in 5 to 7 days for reevaluation. Patient was advised return to the ED immediately if symptoms get worse. - Differential Diagnosis Blisters; cellulitis; burn injury; Critical care attestation.: If time is entered above; I have spent that time in minutes in the direct care of this critically ill patient, excluding procedure time. ED Disposition Clinical Impression: Blister (nonthermal), left foot, initial encounter Blister of toe of left foot without infection Qualifiers: Encounter type: initial encounter Qualified Code(s): S90.425A - Blister (nonthermal), left lesser toe(s), initial encounter Disposition: HOME / SELF CARE / HOMELESS Is pt being admited?: No Does the pt Need Aspirin: No Condition: Stable Instructions: Blisters, Adult Additional Instructions: Take medication as advised, drink plenty of fluids and follow-up with your primary care physician in 5 to 7 days for reevaluation. Return to the ED immediately if symptoms get worse. Prescriptions: Sulfamethoxazole/Trimethoprim [Bactrim DS TAB] 1 each PO Q12H #20 tab Mupirocin [Bactroban 2% OINT] 1 applic TP TID #1 tube carvediloL [Coreg] 12.5 mg PO BID 30 Days #60 tablet Clopidogrel [Plavix] 75 mg PO QDAY #30 tablet Referrals: [facility] [Provider Group] - 3-5 Days Time of Disposition: 05:17 Print Language: TUNISIAN
== END 2021-12-11 06:30 | disposition home or self-care (01) ==
LOC: ED 01:28
DX: S90.425A Blister (nonthermal), left lesser toe(s), initial encounter (principal); I12.9 Hypertensive chronic kidney disease with stage 1 through stage 4 chronic kidney disease, or unspecified chronic kidney disease; E11.22 Type 2 diabetes mellitus with diabetic chronic kidney disease; N18.9 Chronic kidney disease, unspecified; M19.90 Unspecified osteoarthritis, unspecified site; J45.909 Unspecified asthma, uncomplicated; Z79.899 Other long term (current) drug therapy; Z87.891 Personal history of nicotine dependence; X58.XXXA Exposure to other specified factors, initial encounter; Y93.89 Activity, other specified; Y92.89 Other specified places as the place of occurrence of the external cause; Y99.8 Other external cause status
CPT/HCPCS: 99282